=== PATIENT | female | born 1960 | race Caucasian/White ===

== ENCOUNTER 2022-07-08 08:47 | Outpatient (REF) | payer OTHER, SELFPAY ==
--- NOTE | ~2022-07-08 | XR_ITS ---
EXAMINATION: XR BILATERAL KNEE AP STANDING. LATERAL AND SUNRISE VIEWS OF THE RIGHT KNEE. CLINICAL INFORMATION: Pain in unspecified knee COMPARISON: None TECHNIQUE: AP bilateral standing view of both knees, lateral view of the right knee, and sunrise view of the right knee were obtained. FINDINGS: Right knee: Severe medial compartment joint space narrowing with a [id number]-[id number] appearance. There is sclerosis of the medial tibial plateau and medial marginal osteophytosis. Mild lateral compartment joint space narrowing with lateral tibial and femoral marginal osteophytes. Mild patellofemoral joint space narrowing with lateral and superior patellofemoral osteophytosis. Small suprapatellar joint effusion likely present. Left knee: Severe medial compartment joint space narrowing with a argl-[id number] appearance. Mild lateral compartment joint space narrowing. Medial and lateral marginal osteophytes are present. XR/XR knee standing BI IMPRESSION: Tricompartmental osteoarthritis of the right knee severe in the medial compartment. Severe medial compartment osteoarthritis of the left knee.
--- NOTE | ~2022-07-08 | XR_ITS ---
EXAMINATION: XR BILATERAL KNEE AP STANDING. LATERAL AND SUNRISE VIEWS OF THE RIGHT KNEE. CLINICAL INFORMATION: Pain in unspecified knee COMPARISON: None TECHNIQUE: AP bilateral standing view of both knees, lateral view of the right knee, and sunrise view of the right knee were obtained. FINDINGS: Right knee: Severe medial compartment joint space narrowing with a [id number] appearance. There is sclerosis of the medial tibial plateau and medial marginal osteophytosis. Mild lateral compartment joint space narrowing with lateral tibial and femoral marginal osteophytes. Mild patellofemoral joint space narrowing with lateral and superior patellofemoral osteophytosis. Small suprapatellar joint effusion likely present. Left knee: Severe medial compartment joint space narrowing with a rlxl-lg-[id number] appearance. Mild lateral compartment joint space narrowing. Medial and lateral marginal osteophytes are present. XR/XR knee RT 2V IMPRESSION: Tricompartmental osteoarthritis of the right knee severe in the medial compartment. Severe medial compartment osteoarthritis of the left knee.
== END 2022-07-08 08:48 | disposition home or self-care (01) ==
LOC: HO.HOSX 08:47
PROVIDERS: Visit Provider Orthopaedic Surgery
DX: M17.11 Unilateral primary osteoarthritis, right knee (principal); E66.01 Morbid (severe) obesity due to excess calories; Z68.42 Body mass index [BMI] 45.0-49.9, adult; Z71.3 Dietary counseling and surveillance
CPT/HCPCS: 73560; 73565; 99202

== ENCOUNTER → 2022-08-26 15:35 | Outpatient (BNVA) | payer OTHER, SELFPAY | PROVIDERS: PCP Internal Medicine; Visit Provider Internal Medicine | DX: M17.11 Unilateral primary osteoarthritis, right knee (principal) | CPT/HCPCS: 99202 ==

== ENCOUNTER → 2022-11-07 09:18 | Outpatient (BNVA) | payer OTHER, SELFPAY | PROVIDERS: PCP Internal Medicine; Visit Provider Orthopaedic Surgery | DX: Z13.89 Encounter for screening for other disorder (principal) ==

== ENCOUNTER 2023-09-01 14:37 | Outpatient (AMB) | payer OTHER, SELFPAY ==
--- NOTE | 2023-09-01 14:39 | A.OFFVIS_ITS ---
Intake Intake Visit Reasons: bilat knee pain-needs new braces Intake Note: Mikki is a 63 year old female who presents today for a follow up of her bilateral knee OA. Right > Left. Last visit TKA was discussed but she needed to reach 40 BMI. Patient presents today for bracing. Allergies acetaminophen [Vicodin] Allergy (Unknown, Verified 08/26/22 15:51) Unknown ciprofloxacin [Cipro HC] Allergy (Unknown, Verified 08/26/22 15:51) insomnia hydrocodone [Vicodin] Allergy (Unknown, Verified 08/26/22 15:51) Unknown Doxycycline Hyclate Allergy (Unknown, Uncoded 08/26/22 15:51) Unknown HPI bilat knee pain-needs new braces HPI Details Mikki is a 62 year old woman with bilateral knee OA, who presents with complaints of worsening knee pain. She has been seen at [facility] for multiple steroid injections and viscosupplementation, but has not received any injections here at [facility]. She has pain with daily activity, and says she has not been able to walk comfortably for the last ~11 years. She is able to walk down a hallway without pain, but not further. She takes Tramadol & diclofenac and is on pantoprazole due to stomach issues. She is unable to be active or participate in the activities she wants, and continues to walk using a cane. She says she performs exercises at home when in bed, every morning before she gets up. She has been wearing compressive knee sleeves, which she was given to her by an outside clinic, and she would like new sleeves today. She says these are helpful for her and if she is not wearing them then her knee pain & swelling is worse by the end of the day. We discussed weight management and her diet, she says she follows a gluten-free diet and the majority of her carbs come from vegetables, along with occasional rice. She says she has lost her weight through intermittent fasting primarily but she feels she has hit a wall with weight loss. She says she has lost ~30l bs since she was last seen. Her current BMI is 44.0. When she was last seen here TKA was discussed, however her BMI was ~48.0 and she needed to bring this <40.0 in order to proceed with surgery. 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 She has a history of Sepsis, kidney stones, and kidney cancer. She was hospitalized for this in the summer of 2020 and has not been able to work since due to her knee pain. She has a hx of partial nephrectomy. [facility] Surgical History (Updated 09/01/23 @ 15:06 by Davi Bales) H/O: hysterectomy History of carpal tunnel release History of spinal fusion Review of Systems Const All systems reviewed & are unremarkable except as noted in HPI and below Physical Exam Const General: no acute distress, alert and awake Orientation/consciousness: patient oriented x3 HEENT Head: Yes normocephalic and Yes atraumatic Eyes EOM: EOMs intact bilaterally Resp Effort & Inspection: normal respiratory effort and able to speak in complete sentences Cardio Jugular venous distension: no JVD Skin General skin exam: turgor normal Rashes: no rashes Neuro General: patient oriented x3 Extrem Other: Bilateral Knee: Medial compartment pain Severe bilateral varus alignment Varus thrust on gait Psych Appearance: grossly normal Affect: normal affect Attitude: cooperative Results Reviewed Results Reviewed: I personally reviewed relevant radiographs. Severe bilateral varus pattern knee OA Assessment & Plan Assessment & Plan (1) Osteoarthritis of right knee: Code(s): M17.11 - Unilateral primary osteoarthritis, right knee Plan: This is a 63 year old woman with severe bilateral knee OA. She has pain with daily activity and has been unable to ambulate comfortably for ~11 years. she ambulates with an assistive device, but cannot travel farther than down a hallway without pain. She has some relief from a compression sleeve. She has failed conservative treatment options, feels limited in her ADLs, and that her QOL is diminished. She wants to be more active again but is unable to. I think she would benefit from a TKA. Her current BMI is 44.0, down from 48.8. She will continue to work towards lowering her BMI before we can proceed with discussing surgical intervention. She will continue with weight management and be active as tolerated, I recommend she perform exercises in a pool to help support her. She was fitted for bilateral knee sleeves today, and her goal is to lose as much weight as possible in the next ~4 months. We will begin the pre operative clearance process. I think her age and weight are issues but she has good muscle strength and, ultimately, will benefit from arthroplasty. (2) Morbid obesity with BMI of 45.0-49.9, adult: Code(s): E66.01 - Morbid (severe) obesity due to excess calories; Z68.42 - Body mass index [BMI] 45.0-49.9, adult Plan: Current BMI is ~44.0. It is recommended her BMI is <=40.0 before proceeding with surgery. (3) Osteoarthritis of left knee: Code(s): M17.12 - Unilateral primary osteoarthritis, left knee (4) History of partial nephrectomy: Code(s): Z90.5 - Acquired absence of kidney Plan Scribed for Selvin Martinez MD by Davi Bales, medical technologist blood bank, on 09/01/23 at 2:50 PM, EST. Coding Level of Care Code Est Pt Level 4 (25769) Diagnoses Osteoarthritis of right knee M17.11 Morbid obesity with BMI of 45.0-49.9, adult E66.01; Z68.42 Osteoarthritis of left knee M17.12 History of partial nephrectomy Z90.5
== END 2023-09-01 15:47 | disposition home or self-care (01) ==
PROVIDERS: PCP Internal Medicine; Visit Provider Orthopaedic Surgery
DX: M17.0 Bilateral primary osteoarthritis of knee (principal); E66.01 Morbid (severe) obesity due to excess calories; Z68.42 Body mass index [BMI] 45.0-49.9, adult; Z90.5 Acquired absence of kidney
CPT/HCPCS: 99214

== ENCOUNTER → 2023-09-01 14:37 | Outpatient (BNVA) | payer OTHER, SELFPAY | PROVIDERS: PCP Internal Medicine; Visit Provider Orthopaedic Surgery | DX: M17.0 Bilateral primary osteoarthritis of knee (principal); E66.01 Morbid (severe) obesity due to excess calories; Z90.5 Acquired absence of kidney; Z68.42 Body mass index [BMI] 45.0-49.9, adult | CPT/HCPCS: 99212 ==

== ENCOUNTER 2024-01-15 13:22 | Outpatient (AMB) | payer OTHER, SELFPAY ==
--- NOTE | 2024-01-15 13:57 | A.OFFVIS_ITS ---
Intake Intake Visit Reasons: Pre op -LT TKA 01/21/24 NE Intake Note: Mikki is a 63 year old female who presents today for a pre op appointment for her left TKA 01/21/24 NE. Allergies morphine Allergy (Severe, Verified 01/15/24 13:58) Vomiting ciprofloxacin [Cipro HC] Adverse Reaction (Intermediate, Verified 01/15/24 13:58) insomnia HPI Pre op -LT TKA 01/21/24 NE HPI Details 63-year-old female who presents in the [facility] today for her preoperative history and physical exam prior to a left total knee arthroplasty to be performed on 01/21/[address] Selvin Martinez. Patient has an allergy history, as follows: -Morphine; vomiting -Ciprofloxacin; insomina Patient is currently taking, as follows: -Acetaminophen ER 1,300 mg PO Q8H PRN -Diclofenac sodium 75 mg PO TID -Estradiol 0.5 mg PO Bedtime -Fluoxetine 40 mg PO QAM -Pantoprazole 40 mg PO daily -Tramadol 100 mg PO TID -Triamterene-hydrochlorothiazid 37.5-25 mg PO Daily -Valsartan 80 mg PO daily Patient has a medical history, as follows: -Anemia -Urinary retention -History of nephrolithiasis -Chronic kidney disease, stage 3 -Hx of hydronephrosis -Hx of pyelonephritis -BORA on CPAP -Depression -Anxiety -PONV (postoperative nausea and vomiting ) -GERD (gastroesophageal reflux disease) -HTN (hypertension) -History of primary malignant neoplasm o f right kidney; partial nephrectomy -Renal calculus, left Patient has a surgical history, as follows: -Hx of eye surgery -History of esophagogastroduodenoscopy ( EGD) -Hx of colonoscopy -H/O ventral hernia repair; s/p partial nephrectomy 05/2023 -Hx of cystoscopy; sepsis, 3-4 surgeries , ureteral stent, left kidney, removal of stone 2020 -Hx of hand surgery; right hand, plates and screws 1998 -H/O: hysterectomy -History of carpal tunnel release; right -History of spinal fusion; x2 Cervical, last 2003 [facility] Medical History (Updated 01/14/24 @ 15:06 by Estela Babb RN) Anemia Urinary retention History of nephrolithiasis Chronic kidney disease, stage 3 Hx of hydronephrosis Hx of pyelonephritis Osteoarthritis BORA on CPAP Depression Anxiety PONV (postoperative nausea and vomiting) GERD (gastroesophageal reflux disease) HTN (hypertension) History of primary malignant neoplasm of right kidney (~11/2022) Renal calculus, left Surgical History (Updated 01/14/24 @ 15:08 by Estela Babb, RN) Hx of eye surgery History of esophagogastroduodenoscopy (EGD) Hx of colonoscopy H/O ventral hernia repair (~05/2023) Hx of cystoscopy (~2020) Hx of hand surgery H/O: hysterectomy (~1998) History of carpal tunnel release History of spinal fusion Social History Household Members: None Housing: House Are you a primary healthcare sales representative to a significant other at home: No Do you presently have visiting nurse or other home services: No e-Cigarette/Vaping Use: Never Used Review of Systems Const All systems reviewed & are unremarkable except as noted in HPI and below Physical Exam Const General: no acute distress, alert and awake Orientation/consciousness: patient oriented x3 HEENT Head: Yes normocephalic and Yes atraumatic Eyes EOM: EOMs intact bilaterally Resp Effort & Inspection: normal respiratory effort and able to speak in complete sentences Cardio Jugular venous distension: no JVD Skin General skin exam: turgor normal Rashes: no rashes Neuro General: patient oriented x3 Extrem Other: Left Knee: Medial compartment pain Severe bilateral varus alignment Varus thrust on gait Psych Appearance: grossly normal Affect: normal affect Attitude: cooperative Assessment & Plan Assessment & Plan (1) Osteoarthritis of left knee: Code(s): M17.12 - Unilateral primary osteoarthritis, left knee (2) Morbid obesity with BMI of 45.0-49.9, adult: Code(s): E66.01 - Morbid (severe) obesity due to excess calories; Z68.42 - Body mass index [BMI] 45.0-49.9, adult (3) History of partial nephrectomy: Code(s): Z90.5 - Acquired absence of kidney Plan Ms. Rutledge is a 63-year-old female who presents in the office today for her preoperative history and physical exam prior to a left total knee arthroplasty to be performed on 01/21/[address] Selvin Martinez. Patient has an allergy history, as follows: -Morphine; vomiting -Ciprofloxacin; insomina Patient is currently taking, as follows: -Acetaminophen ER 1,300 mg PO Q8H PRN -Diclofenac sodium 75 mg PO TID -Estradiol 0.5 mg PO Bedtime -Fluoxetine 40 mg PO QAM -Pantoprazole 40 mg PO daily -Tramadol 100 mg PO TID -Triamterene-hydrochlorothiazid 37.5-25 mg PO Daily -Valsartan 80 mg PO daily Patient has a medical history, as follows: -Anemia -Urinary retention -History of nephrolithiasis -Chronic kidney disease, stage 3 -Hx of hydronephrosis -Hx of pyelonephritis -BORA on CPAP -Depression -Anxiety -PONV (postoperative nausea and vomiting) -GERD (gastroesophageal reflux disease) -HTN (hypertension) -History of primary malignant neoplasm of right kidney; partial nephrectomy -Renal calculus, left Patient has a surgical history, as follows: -Hx of eye surgery -History of esophagogastroduodenoscopy (EGD) -Hx of colonoscopy -H/O ventral hernia repair; s/p partial nephrectomy 05/2023 -Hx of cystoscopy; sepsis, 3-4 surgeries, ureteral stent, left kidney, removal of stone 2020 -Hx of hand surgery; right hand, plates and screws 1998 -H/O: hysterectomy -History of carpal tunnel release; right -History of spinal fusion; x2 Cervical, last 2003 I discussed in detail the procedure and what to expect pre and post operatively. We discussed the risks, benefits and alternatives to the surgery as well as the rehabilitation course. The risks; which include, but are not limited to infection, bleeding, nerve injury, ongoing pain, swelling, and stiffness, perioperative risk of injury to bones and soft tissues, and blood clots. I have answered all questions and with their understanding they have consented to move forward with a left total knee arthroplasty to be performed on 01/21/[address] Selvin Martinez. Follow up will be at the post operative appointment on 02/05/2024 at 3:00 pm, or sooner if needed. X-rays were obtained for surgical planning. Of note: Patient recently had a tattoo on her right upper extremity on the proximal to distal radius. Dr. Martinez was available to discuss this with the patient and myself and stated he felt comfortable still proceeding as scheduled with the left total knee arthroplasty. Patient does have a history of renal cancer and therefore was followed by Dr. Bernabe. At the time of treatment her right kidney was removed. Patient will be placed on Lovenox post operatively for DVT prophylaxis. Patient would like to attend physical therapy closer to her home in [place]. She will research which facility she would like to attend. Patient is interested in obtaining an ice machine post operatively. Please call daughter Lucrecia post op [phone] Orders: Orders XR knee standing BI Today M25.569 - Pain in unspecified knee XR knee LT 2V Today M25.569 - Pain in unspecified knee Patient Instructions: Scribed by Cass Null, medical researcher, for Beth Shepard PA-C on 01/15/2024 at 1:26 pm, EST. Coding Level of Care Code Global (49154) Diagnoses Osteoarthritis of left knee M17.12 Morbid obesity with BMI of 45.0-49.9, adult E66.01; Z68.42 History of partial nephrectomy Z90.5
== END 2024-01-15 14:15 | disposition home or self-care (01) ==
PROVIDERS: PCP Internal Medicine; Visit Provider Physician Assistant
DX: M17.12 Unilateral primary osteoarthritis, left knee (principal); E66.01 Morbid (severe) obesity due to excess calories; Z68.42 Body mass index [BMI] 45.0-49.9, adult; Z90.5 Acquired absence of kidney
CPT/HCPCS: 99024

== ENCOUNTER 2024-01-15 14:30 | Outpatient (REF) | payer OTHER, SELFPAY ==
--- NOTE | ~2024-01-15 | XR_ITS ---
EXAMINATION: XR BILATERAL KNEE AP STANDING XR KNEE, LEFT CLINICAL INFORMATION: Pain in unspecified knee. COMPARISON: July 08, 2022. TECHNIQUE: AP bilateral standing view of both knees, lateral view of the right knee, and sunrise view of the right knee were obtained. FINDINGS: LEFT KNEE: No significant joint effusion. Patella is superiorly displaced relative to the distal femur with posterior patellar osteophytes and cartilage space loss. Severe medial joint space narrowing with medial marginal osteophytes and progression of periarticular lucencies and cystic changes. RIGHT KNEE: Advanced tricompartmental degenerative changes most notable in the medial compartment with loss of the joint space and hypertrophic change. Fragmented ossicles/calcifications along the medial tibial plateau of indeterminate age, not previously identified, possibly representing interval trauma of uncertain age. Lateral marginal and posterior patellar osteophytes with compartmental narrowing and degenerative changes. Genu varus. XR/XR knee LT 2V IMPRESSION: 1. Severe degenerative changes bilateral knees. 2. Fragmented ossicles/calcifications along the medial tibial plateau of indeterminate age, not previously identified, possibly representing interval trauma of uncertain age. Correlation with clinical exam recommended to determine further management including possible additional imaging with MRI. This study was presented January 19, 2024 for interpretation. PSA staff will provide results to referring provider at this time.
--- NOTE | ~2024-01-15 | XR_ITS ---
EXAMINATION: XR BILATERAL KNEE AP STANDING XR KNEE, LEFT CLINICAL INFORMATION: Pain in unspecified knee. COMPARISON: July 08, 2022. TECHNIQUE: AP bilateral standing view of both knees, lateral view of the right knee, and sunrise view of the right knee were obtained. FINDINGS: LEFT KNEE: No significant joint effusion. Patella is superiorly displaced relative to the distal femur with posterior patellar osteophytes and cartilage space loss. Severe medial joint space narrowing with medial marginal osteophytes and progression of periarticular lucencies and cystic changes. RIGHT KNEE: Advanced tricompartmental degenerative changes most notable in the medial compartment with loss of the joint space and hypertrophic change. Fragmented ossicles/calcifications along the medial tibial plateau of indeterminate age, not previously identified, possibly representing interval trauma of uncertain age. Lateral marginal and posterior patellar osteophytes with compartmental narrowing and degenerative changes. Genu varus. XR/XR knee standing BI IMPRESSION: 1. Severe degenerative changes bilateral knees. 2. Fragmented ossicles/calcifications along the medial tibial plateau of indeterminate age, not previously identified, possibly representing interval trauma of uncertain age. Correlation with clinical exam recommended to determine further management including possible additional imaging with MRI. This study was presented January 19, 2024 for interpretation. PSA staff will provide results to referring provider at this time.
== END 2024-01-15 14:31 | disposition home or self-care (01) ==
LOC: HO.HOSX 14:30
PROVIDERS: Visit Provider Physician Assistant
DX: M17.12 Unilateral primary osteoarthritis, left knee (principal); E66.01 Morbid (severe) obesity due to excess calories; Z68.42 Body mass index [BMI] 45.0-49.9, adult; Z90.5 Acquired absence of kidney
CPT/HCPCS: 73560; 73565; 99212

== ENCOUNTER 2024-01-21 06:44 | Inpatient (IN) | payer OTHER, SELFPAY ==
[2024-01-14 12:42] VITALS: BP 130/70; PULSE 82; RESP 16; O2SAT 98; BMI 45.0
--- NOTE | 2024-01-14 12:58 | P.CONAN_ITS ---
Documented by User: Zaria Le NP 01/20/24 11:04 HPI - Anesthesia Eval Consult details Narrative: 63yo F for Left Knee Replacement Total Medically cleared Urology cleared. (s/p partial R nephrectomy 11/2022 d/t RCC) PONV. Has not tried scop patch BORA. CPAP QHS. GERD. Mostly covered by ppi PMFSH Active Problems Active Problems: All Active Problems (Updated 01/14/24 @ 12:36 by Estela Babb, RN) History of partial nephrectomy (Acute) Osteoarthritis of left knee (Acute) Morbid obesity with BMI of 45.0-49.9, adult (Acute) Osteoarthritis of right knee (Acute) Past Medical History Medical History (Updated 01/14/24 @ 15:06 by Estela Babb, RN) Anemia Urinary retention History of nephrolithiasis Chronic kidney disease, stage 3 Hx of hydronephrosis Hx of pyelonephritis Osteoarthritis BORA on CPAP Depression Anxiety PONV (postoperative nausea and vomiting) GERD (gastroesophageal reflux disease) HTN (hypertension) History of primary malignant neoplasm of right kidney (~11/2022) Renal calculus, left Family History Family history of problems with anesthesia: No Surgical History Surgical History (Updated 01/20/24 @ 11:02 by Jania Quezada RN) History of nephrectomy, right Hx of eye surgery History of esophagogastroduodenoscopy (EGD) Hx of colonoscopy H/O ventral hernia repair (~05/2023) Hx of cystoscopy (~2020) Hx of hand surgery H/O: hysterectomy (~1998) History of carpal tunnel release History of spinal fusion History of Problems with Anesthesia: Yes (PONV) Social History Social History Household Members: None Housing: House Are you a primary healthcare representative to a significant other at home: No Do you presently have visiting nurse or other home services: No e-Cigarette/Vaping Use: Never Used Use of substances other than those prescribed or required for medical reasons: No Have you been hit, kicked, punched, or otherwise hurt by someone within the past year? If so, by whom?: No Are you DNR?: No Advance Directives: No Advance Directives Information Provided: Yes Advance Directives on File: No Recently lost weight without trying: No Nutrition Risks: No Nutritional Risk Meds Allergies Allergy/AdvReac Type Severity Reaction Status Date / Time morphine Allergy Severe Vomiting Verified 01/15/24 13:58 ciprofloxacin [Cipro HC] AdvReac Intermediate insomnia Verified 01/15/24 13:58 Home Medications Medication Instructions Recorded Confirmed Last Taken Type diclofenac sodium 75 mg 75 mg PO TID 07/08/22 01/14/24 01/20/24 History tablet,delayed release estradiol 0.5 mg tablet 0.5 mg PO BEDTIME 07/08/22 01/14/24 01/20/24 History pantoprazole 40 mg tablet,delayed 40 mg PO DAILY 07/08/22 01/14/24 01/21/24 05:00 History release tramadol 50 mg tablet 100 mg PO TID 07/08/22 01/14/24 01/21/24 05:00 History triamterene 37.5 1 tab PO DAILY 07/08/22 01/14/24 01/20/24 History mg-hydrochlorothiazide 25 mg tablet fluoxetine 20 mg capsule 40 mg PO QAM 09/01/23 01/14/24 01/21/24 05:00 History acetaminophen 650 mg 1,300 mg PO Q8H PRN pain 01/14/24 01/14/24 01/20/24 History tablet,extended release valsartan 80 mg tablet 80 mg PO DAILY 01/14/24 01/14/24 01/20/24 History Exam Height,Weight and Vital Signs: Height 5 ft Weight 104.6 kg Last Vital Signs Pulse 82 01/14/24 12:42 Resp 16 01/14/24 12:42 BP 130/70 01/14/24 12:42 Pulse Ox 98 01/14/24 12:42 O2 Del Method Room Air 01/14/24 12:42 Pertinent Lab Results Pertinent Lab Results: CBC and BMP 12/2023 from outside facility WNL except H&H low at 9.7 & 32.2 Narrative Narrative: EKG 12/2023 SR @ 87 RBBB LVH Inf infarct, old Airway Mallampati Class: III TM Dist: >3cm Neck ROM: Full (s/p Cspine fusion with full ROM) Loose/Missing/Broken Teeth: Yes (Molar pulled) Heart: RRR Lungs: CTAB Assessment and Plan Assessment Anesthesia Assessment: Anesthesia Plan Discussed and PAT Visit Final Anesthetic Review Family History of Problems with Anesthesia: No History of Problems with Anesthesia: Yes (PONV) Documented by User: Estela Page MD 01/21/24 07:57 PMFSH Past Medical History Medical History (Updated 01/14/24 @ 15:06 by Estela Babb, JOE) Anemia Urinary retention History of nephrolithiasis Chronic kidney disease, stage 3 Hx of hydronephrosis Hx of pyelonephritis Osteoarthritis BORA on CPAP Depression Anxiety PONV (postoperative nausea and vomiting) GERD (gastroesophageal reflux disease) HTN (hypertension) History of primary malignant neoplasm of right kidney (~11/2022) Renal calculus, left Surgical History Surgical History (Updated 01/20/24 @ 11:02 by Jania Quezada RN) History of nephrectomy, right Hx of eye surgery History of esophagogastroduodenoscopy (EGD) Hx of colonoscopy H/O ventral hernia repair (~05/2023) Hx of cystoscopy (~2020) Hx of hand surgery H/O: hysterectomy (~1998) History of carpal tunnel release History of spinal fusion Social History Social History Household Members: None Housing: House Are you a primary healthcare representative to a significant other at home: No Do you presently have visiting nurse or other home services: No e-Cigarette/Vaping Use: Never Used Use of substances other than those prescribed or required for medical reasons: No Have you been hit, kicked, punched, or otherwise hurt by someone within the past year? If so, by whom?: No Are you DNR?: No Advance Directives: No Advance Directives Information Provided: Yes Advance Directives on File: No Recently lost weight without trying: No Nutrition Risks: No Nutritional Risk Meds Allergies Allergy/AdvReac Type Severity Reaction Status Date / Time morphine Allergy Severe Vomiting Verified 01/15/24 13:58 ciprofloxacin [Cipro HC] AdvReac Intermediate insomnia Verified 01/15/24 13:58 Home Medications Medication Instructions Recorded Confirmed Last Taken Type diclofenac sodium 75 mg 75 mg PO TID 07/08/22 01/14/24 01/20/24 History tablet,delayed release estradiol 0.5 mg tablet 0.5 mg PO BEDTIME 07/08/22 01/14/24 01/20/24 History pantoprazole 40 mg tablet,delayed 40 mg PO DAILY 07/08/22 01/14/24 01/21/24 05:00 History release tramadol 50 mg tablet 100 mg PO TID 07/08/22 01/14/24 01/21/24 05:00 History triamterene 37.5 1 tab PO DAILY 07/08/22 01/14/24 01/20/24 History mg-hydrochlorothiazide 25 mg tablet fluoxetine 20 mg capsule 40 mg PO QAM 09/01/23 01/14/24 01/21/24 05:00 History acetaminophen 650 mg 1,300 mg PO Q8H PRN pain 01/14/24 01/14/24 01/20/24 History tablet,extended release valsartan 80 mg tablet 80 mg PO DAILY 01/14/24 01/14/24 01/20/24 History Assessment and Plan Assessment Anesthesia Assessment: Chart Reviewed Final Anesthetic Review NPO: Yes ASA Class: III Final Preanesthetic Review: No Changes in Pt Med Stat, Meds/Allgs Chart Reviewed, Consent Obtained/Reviewed and Anes Risks/Benef Reviewed Patient Risk: Intermediate Procedure Risk: Intermediate Anesthetic Plan Anesthetic Plan: Spinal and Regional Block Disposition: Standard PACU
[2024-01-14 16:17] LABS: MRSA Nasal PCR NEGATIVE (Negative); SA Nasal PCR NEGATIVE (Negative)
[2024-01-21] VITALS (9 sets, daily range): BP systolic 101–160; BP diastolic 53–86; PULSE 70–86; RESP 16–20; TEMP 36.1–36.9; O2SAT 93–99; BMI 48.6
--- NOTE | ~2024-01-21 | XR_ITS ---
EXAMINATION: XR KNEE, LEFT CLINICAL INFORMATION: Left TKA COMPARISON: None available. TECHNIQUE: Two views of the left knee. FINDINGS: There is a total left knee arthroplasty with prosthetic components in satisfactory alignment. There are limited postop changes of left knee with surgical elke along the anterior skin. XR/XR knee LT 2V IMPRESSION: Total left knee arthroplasty with immediate postoperative changes noted. The prosthetic components are in satisfactory alignment.
[2024-01-21] MEDS: Scopolamine 1.5 MG PATCH.TD.3 TRANSDERMA (07:07)
--- NOTE | 2024-01-21 07:35 | MHC.SHP ---
Pre-Procedural Eval Section A - 24 Hr Update-Section A only Date of Service: 01/21/24 The patient is an INPATIENT: No Changes since office visit: No Cold of Flu in the past 2 weeks, No New Medical Problems, No Changes in Medication and No Patient answered all questions The patient has been examined within 24 hours of the surgical procedure. The History & Physical has been completed within 30 days and I have reviewed it.: Yes Section B - Complete if H&P > 30 days Chief Complaint: Unilateral primary osteoarthritis, right knee Allergies: Allergies Allergy/AdvReac Type Severity Reaction Status Date / Time morphine Allergy Severe Vomiting Verified 01/15/24 13:58 ciprofloxacin [Cipro HC] AdvReac Intermediate insomnia Verified 01/15/24 13:58 Plan I have reviewed the history and physical and performed a pertinent physical examination on my patient. No changes have occurred unless specified. Time Spent With Patient Time: Total time managing care of this patient today ____ minutes.
--- NOTE | 2024-01-21 07:58 | PC.NURSE ---
iv inserted to right hand. large bruising noted.patient states she bleeds easily but no known bleeding disorder.
[2024-01-21] MEDS: Lactated Ringers 1,000 ML 100 ML IVCONT ×2 (08:01→11:09)
--- NOTE | 2024-01-21 08:02 | PC.NURSE ---
ice pack applied to right hand
--- NOTE | 2024-01-21 10:06 | P.BOP_ITS ---
Brief Operative Note Date of Service: 01/21/24 Pre-op diagnosis: left knee OA Post-op diagnosis: same Procedure: Left TKA Implants: [employer] Triathlon posterior stabilized cemented 01/10/13 Surgeon: Selvin Martinez MD Anesthesia: regional and spinal Was an Rfid Engineer used for this Procedure?: Yes Rfid Engineer: Jake Patel Estimated blood loss (mL): 20 Tourniquet time (min): 61 IV fluids (mL): 1,000 Pathology: other Condition: stable Disposition: PACU
[2024-01-21] MEDS: oxyCODONE HCl ER 10 MG TAB.ER.12H PO ×2 (11:13→19:59)
--- NOTE | 2024-01-21 11:24 | PHA.MEDREC ---
Pharmacy Consult ? Medication Reconciliation Pharmacy has completed the medication reconciliation.med rec done by nursing, reviewed by pharmacy and no concerns.
[2024-01-21] MEDS: Acetaminophen 325 MG TABLET 650 MG PO ×2 (13:47→22:20)
[2024-01-21] MEDS: oxyCODONE HCl Immed Release 5 MG TABLET PO ×3 (13:47→22:20)
[2024-01-21] MEDS: ceFAZolin Sodium/Dextrose,Iso 2 GM/50 ML PIGGYBACK IV (13:47)
--- NOTE | 2024-01-21 14:52 | P.CONHOSP_ITS ---
History of Present Illness Data of Consult Service Date: 01/21/24 Primary Care Provider: Chantal Magallanes MD HPI Reason for consult: med management 63 year old female with chronic medical issues including HTN, CKD3, GERD and OA. She underwent Left TKA today and is doing well post op having already getting out of bed and taking some steps. She has some pain the knee but has no acute medical issues at this time and her vital sings are within normal Review of Systems Review of Systems: Gen: no fever Resp: no sob, no cough CV: no chest, no DEAN, no leg edema GI: No n/v, no abd pain Neuro: No confusion MSK: left knee pain Yes all other systems are reviewed and are negative [facility] Medical History (Updated 01/21/24 @ 15:16 by Robb Velazquez MD) Anemia Urinary retention History of nephrolithiasis Chronic kidney disease, stage 3 Hx of hydronephrosis Hx of pyelonephritis Osteoarthritis BORA on CPAP Depression Anxiety PONV (postoperative nausea and vomiting) GERD (gastroesophageal reflux disease) HTN (hypertension) History of primary malignant neoplasm of right kidney (~11/2022) Renal calculus, left Surgical History History of nephrectomy, right Hx of eye surgery History of esophagogastroduodenoscopy (EGD) Hx of colonoscopy H/O ventral hernia repair (~05/2023) Hx of cystoscopy (~2020) Hx of hand surgery H/O: hysterectomy (~1998) History of carpal tunnel release History of spinal fusion Social History Household Members: None Housing: House Are you a primary caregivers homecare to a significant other at home: No Do you presently have visiting nurse or other home services: No Patient Tobacco Use Status: Former Tobacco user Quit Date: 2013 Tobacco use type: Cigarette Years Smoked: 30 Smoked in Last 30 Days: No e-Cigarette/Vaping Use: Never Used Patient Interested in Nicotine Replacement: No Patient Given Instructions on How to Stop Smoking: No Use of substances other than those prescribed or required for medical reasons: No Currently Displaying Signs/Symptoms of Drug Intoxication Withdrawal: No Any prior treatment program specific to substance use: No Have you been hit, kicked, punched, or otherwise hurt by someone within the past year? If so, by whom?: No Do you feel safe in your current relationship?: No Current Relationship Are you made to feel afraid or neglected: Yes Are you DNR?: No Advance Directives: No Advance Directives Information Provided: Yes Advance Directives on File: No Do you have thoughts of harming others: None Do you have a plan to hurt others: No Plan Recently lost weight without trying: No Eating poorly because of decreased appetite: No Nutrition Risks: No Nutritional Risk Patient : No : No Poor oral hygiene: No Meds Allergies Allergy/AdvReac Type Severity Reaction Status Date / Time morphine Allergy Severe Vomiting Verified 01/15/24 13:58 ciprofloxacin [Cipro HC] AdvReac Intermediate insomnia Verified 01/15/24 13:58 Active Medications: Current Medications Acetaminophen (Acetaminophen 325 Mg Tablet) 650 mg PO Q6H PRN PRN Reason: Pain, Mild (Pain Scale 1-3) Last Admin: 01/21/24 13:47 Dose: 650 mg Celecoxib (Celecoxib 200 Mg Capsule) 200 mg PO BID [facility] Docusate Sodium (Docusate Sodium 100 Mg Capsule) 100 mg PO BID [facility] Enoxaparin Sodium (Enoxaparin Sodium 40 Mg/0.4 Ml Syringe) 40 mg SUBCUT Q24H [facility] Estradiol (Estradiol 0.5 Mg Tablet) 0.5 mg PO BEDTIME [facility] Fluoxetine HCl (Fluoxetine Hcl 20 Mg Capsule) 40 mg PO DAILY [facility] Last Admin: 01/21/24 11:42 Dose: Not Given Hydromorphone HCl (Hydromorphone Hcl 0.5 Mg/0.5 Ml Syringe) 0.25 mg IVPUSH Q4H PRN; Protocol PRN Reason: Pain, Severe (Pain Scale 7-10) Lactated Ringer's (Lr) 1,000 mls @ 100 mls/hr IVCONT .Q10H [facility] Stop: 01/22/24 10:21 Last Admin: 01/21/24 11:09 Dose: 100 mls/hr Cefazolin Sodium/Dextrose (Ancef) 2 gm in 50 mls @ 100 mls/hr IV POSTOP ONE Stop: 01/21/24 15:29 Last Infusion: 01/21/24 14:23 Dose: Infused Omeprazole (Omeprazole 20 Mg Capsule.Dr) 20 mg PO DAILY@0630 [facility] Ondansetron HCl (Ondansetron Hcl 4 Mg/2 Ml Vial) 4 mg IVPUSH Q8H PRN PRN Reason: Nausea and Vomiting Oxycodone HCl (Oxycodone Hcl Immed Release 5 Mg Tablet) 5 mg PO Q4H PRN PRN Reason: Pain, Moderate(Pain Scale 4-6) Last Admin: 01/21/24 13:47 Dose: 5 mg Oxycodone HCl (Oxycodone Hcl Er 10 Mg Tab.Er.12h) 10 mg PO BID [facility] Last Admin: 01/21/24 11:13 Dose: 10 mg Sodium Chloride (0.9 % Sodium Chloride Flush 3 Ml Syringe) 3 ml IVFLUSH QSHIFT [facility] Home Medications Medication Instructions Recorded Confirmed Last Taken Type diclofenac sodium 75 mg 75 mg PO TID 07/08/22 01/14/24 01/20/24 History tablet,delayed release estradiol 0.5 mg tablet 0.5 mg PO BEDTIME 07/08/22 01/14/24 01/20/24 History pantoprazole 40 mg tablet,delayed 40 mg PO DAILY 07/08/22 01/14/24 01/21/24 05:00 History release tramadol 50 mg tablet 100 mg PO TID 07/08/22 01/14/24 01/21/24 05:00 History triamterene 37.5 1 tab PO DAILY 07/08/22 01/14/24 01/20/24 History mg-hydrochlorothiazide 25 mg tablet fluoxetine 20 mg capsule 40 mg PO QAM 09/01/23 01/14/24 01/21/24 05:00 History acetaminophen 650 mg 1,300 mg PO Q8H PRN pain 01/14/24 01/14/24 01/20/24 History tablet,extended release valsartan 80 mg tablet 80 mg PO DAILY 01/14/24 01/14/24 01/20/24 History Physical Exam Vital Signs and Narrative: Vital Signs: Last Vital Signs Temp 97.8 F 01/21/24 11:17 Pulse 70 01/21/24 13:55 Resp 18 01/21/24 11:17 BP 126/69 01/21/24 13:55 Pulse Ox 96 01/21/24 13:55 O2 Del Method Room Air 01/21/24 11:17 BMI result Body Mass Index 48.6 Constitutional: Alert, in no distress, overweight. Mental Status: Oriented to person, place and time. Eyes: Pupils are equal, round and reactive to light. Ear, Nose and Throat: Oropharynx clear, mucous membranes moist. Respiratory: Clear to auscultation. No wheezing, rales or rhonchi. Cardiovascular: S1 S2 regular. No murmurs, rubs or gallops. Gastrointestinal: Abdomen soft, non-tender, non-distended. Normal bowel sounds.? Neurologic: Cranial nerves II-XII grossly intact. No focal neurological deficits. Moves all extremities spontaneously.? Skin: No rashes or lesions.?knee is wrapped and no ozzing of bleed Musculoskeletal: No cyanosis or clubbing. Psychiatric: Normal mood and affect? Results Imaging Radiologist's Impressions: Impressions Knee X-Ray 01/21/24 10:52 IMPRESSION: Total left knee arthroplasty with immediate postoperative changes noted. The prosthetic components are in satisfactory alignment. Assessment and Plan (1) HTN (hypertension): Status: Acute (2) Osteoarthritis of left knee: Status: Acute (3) Morbid obesity with BMI of 45.0-49.9, adult: Status: Acute Plan 63 year old female with chronic medical issues including HTN, CKD3, GERD and OA. She underwent Left TKA today and is doing well post op having already getting out of bed and taking some steps. s/p L TKA--management per surgery HTN--resume home BP meds Obesity --weight loss advised GERD--PPI DVT P: lovenox
[2024-01-21] MEDS: ondansetron HCL 4 MG/2 ML VIAL IVPUSH (15:23)
[2024-01-21] MEDS: HYDROmorphone HCl 0.5 MG/0.5 ML SYRINGE 0.25 MG IVPUSH ×2 (15:33→20:00)
[2024-01-21] MEDS: estradioL 0.5 MG TABLET PO (19:59)
[2024-01-21] MEDS: Celecoxib 200 MG CAPSULE PO (19:59)
[2024-01-21] MEDS: Docusate Sodium 100 MG CAPSULE PO (19:59)
[2024-01-22] VITALS (7 sets, daily range): BP systolic 139–148; BP diastolic 64–70; PULSE 65–85; RESP 17–18; TEMP 36–36.3; O2SAT 95–97
[2024-01-22] MEDS: HYDROmorphone HCl 0.5 MG/0.5 ML SYRINGE 0.25 MG IVPUSH ×5 (00:19→20:09)
[2024-01-22] MEDS: oxyCODONE HCl Immed Release 5 MG TABLET PO ×4 (02:58→18:23)
[2024-01-22] MEDS: Omeprazole 20 MG CAPSULE.DR PO (04:35)
[2024-01-22 06:56] LABS: MANUAL DIFF FLAG NO
[2024-01-22 07:18] LABS: Anion Gap 13 (12-20); Blood Urea Nitrogen 11 mg/dL (9-16); Calcium 9.7 mg/dL (8.4-10.2); Carbon Dioxide 28 mmol/L (22-29); Chloride 103 mmol/L (96-108); Creatinine Clr Calc Pharmacy 105.8; Estimated Glomerular Filt Rate > 60; Glucose Fasting 108 mg/dL (60-99); Potassium 3.5 mmol/L (3.3-5.1); Sodium 140 mmol/L (135-145)
[2024-01-22 07:21] LABS: Basophils Percent Auto 0.3 % (0-2); Hematocrit 29.7 % (37.0-47.0); Hemoglobin 9.4 g/dl (12.0-16.0); Imm Gran Abs Auto 0.04 X10*3/uL (0.00-0.03); Imm Gran Pct Auto 0.4 % (0.0-0.4); Lymphocytes Absolute Auto 2.6 X10*3/uL (1.2-4.9); Lymphocytes Percent Auto 23.5 % (20-40); Mean Corpuscular HGB Conc 31.6 g/dl (31.0-35.0); Mean Platelet Volume 11.7 fL (9.4-12.3); Monocytes Absolute Auto 1.4 X10*3/uL (0.1-1.2); Neutrophils Absolute Auto 7.2 x10*3/uL (2.0-8.3); Neutrophils Percent Auto 63.8 % (45-73); Platelet Count 311 X10*3/uL (160-400); Red Blood Count 3.62 X10*6/uL (4.20-5.50); Red Cell Distribution Width 14.1 % (11.0-16.0); White Blood Count 11.3 X10*3/uL (4.8-10.8)
[2024-01-22] MEDS: ondansetron HCL 4 MG/2 ML VIAL IVPUSH ×2 (07:34→18:30)
[2024-01-22] MEDS: 0.9 % Sodium Chloride Flush 3 ML SYRINGE IVFLUSH ×3 (07:34→20:11)
--- NOTE | 2024-01-22 08:03 | HO.PM.IMPN ---
Subjective Subjective Date of Service: 01/22/24 Interval History: f/u on med management post left TKA, has pain Physical Exam Vital Signs: Vital Signs: Last Vital Signs Temp 96.8 F 01/22/24 07:25 Pulse 65 01/22/24 07:25 Resp 18 01/22/24 07:25 BP 142/64 H 01/22/24 07:25 Pulse Ox 97 01/22/24 07:25 O2 Del Method Room Air 01/22/24 07:25 BMI result Body Mass Index 48.6 Const: Other: General: AO X 3, no acute distress Resp: CTA bilateral CVS: S1,S2,RRR GI: +BS, NT, no distention Skin: No rash, no oozing from dressing Neuro: motor grossly intact Psych: appropriate affect Objective Data Active Medications Acetaminophen (Acetaminophen 325 Mg Tablet) 650 mg PO Q6H PRN PRN Reason: Pain, Mild (Pain Scale 1-3) Last Admin: 01/21/24 22:20 Dose: 650 mg Documented By: JANINE Celecoxib (Celecoxib 200 Mg Capsule) 200 mg PO BID [facility] Last Admin: 01/21/24 19:59 Dose: 200 mg Documented By: JANINE Docusate Sodium (Docusate Sodium 100 Mg Capsule) 100 mg PO BID [facility] Last Admin: 01/21/24 19:59 Dose: 100 mg Documented By: JANINE Enoxaparin Sodium (Enoxaparin Sodium 40 Mg/0.4 Ml Syringe) 40 mg SUBCUT Q24H [facility] Estradiol (Estradiol 0.5 Mg Tablet) 0.5 mg PO BEDTIME [facility] Last Admin: 01/21/24 19:59 Dose: 0.5 mg Documented By: JANINE Fluoxetine HCl (Fluoxetine Hcl 20 Mg Capsule) 40 mg PO DAILY [facility] Last Admin: 01/21/24 11:42 Dose: Not Given Documented By: JUANJO Non-Admin Reason: taken at home Hydromorphone HCl (Hydromorphone Hcl 0.5 Mg/0.5 Ml Syringe) 0.25 mg IVPUSH Q4H PRN; Protocol PRN Reason: Pain, Severe (Pain Scale 7-10) Last Admin: 01/22/24 04:28 Dose: 0.25 mg Documented By: JANINE Omeprazole (Omeprazole 20 Mg Capsule.Dr) 20 mg PO DAILY@0630 [facility] Last Admin: 01/22/24 04:35 Dose: 20 mg Documented By: JANINE Ondansetron HCl (Ondansetron Hcl 4 Mg/2 Ml Vial) 4 mg IVPUSH Q8H PRN PRN Reason: Nausea and Vomiting Last Admin: 01/22/24 07:34 Dose: 4 mg Documented By: SHARA Oxycodone HCl (Oxycodone Hcl Immed Release 5 Mg Tablet) 5 mg PO Q4H PRN PRN Reason: Pain, Moderate(Pain Scale 4-6) Last Admin: 01/22/24 06:34 Dose: 5 mg Documented By: JANINE Oxycodone HCl (Oxycodone Hcl Er 10 Mg Tab.Er.12h) 10 mg PO BID [facility] Last Admin: 01/21/24 19:59 Dose: 10 mg Documented By: JANINE Sodium Chloride (0.9 % Sodium Chloride Flush 3 Ml Syringe) 3 ml IVFLUSH QSHIFT [facility] Last Admin: 01/22/24 07:34 Dose: 3 ml Documented By: SHARA Valsartan (Valsartan 80 Mg Tablet) 80 mg PO DAILY [facility]; Protocol Labs 01/22/24 05:41 01/22/24 05:41 Labs: Laboratory Results - last 24 hr 01/22/24 05:41 MCV 82.0 MCH 26.0 L MCHC 31.6 RDW 14.1 Plt Count 311 MPV 11.7 Immature Gran % (Auto) 0.4 Neut % (Auto) 63.8 Lymph % (Auto) 23.5 [place] % (Auto) 12.0 H Eos % (Auto) 0.0 Baso % (Auto) 0.3 Lymph # (Auto) 2.6 [place] # (Auto) 1.4 H Eos # (Auto) 0.0 Baso # (Auto) 0.0 Abs Immat Gran (auto) 0.04 H Absolute Neuts (auto) 7.2 Absolute Nucleated RBC 0.000 Nucleated RBC % (auto) 0.0 Anion Gap 13 Estim Creat Clear Calc 105.8 Estimated GFR > 60 Fasting Glucose 108 H Calcium 9.7 Assessment and Plan (1) HTN (hypertension): Status: Acute (2) History of partial nephrectomy: Status: Acute (3) Osteoarthritis of left knee: Status: Acute (4) Morbid obesity with BMI of 45.0-49.9, adult: Status: Acute Plan 63 year old female with chronic medical issues including HTN, h/o nephrectom,CKD, GERD and OA. She underwent Left TKA today and is doing well post op having already getting out of bed and taking some steps. s/p L TKA 01/20--management per surgery HTN--resume home BP meds (Valsartan) Obesity --weight loss advised GERD--PPI Mood desorder--Fluoxetine DVT P: lovenox med issues stable, no acute issues and signing of Quality Stroke Does the patient have a stroke diagnosis?: No VTE Prior VTE?: No VTE Risk Level:: Medical - moderate - high VTE Device Contraindication: N/A - Device Ordered VTE Drug Contraindication: N/A - Med Ordered
--- NOTE | 2024-01-22 08:47 | P.DS_ITS ---
DS: Providers Provider Date of Service: 01/22/24 Date of admission: 01/21/24 06:44 Primary care physician: Chantal Magallanes MD Consults: 01/21/24 10:43 Consult to Hospitalist Routine Comment: Consulting Provider: Hospitalist Reason For Exam: medical management DS: Diagnosis Discharge Diagnosis (1) Status post total left knee replacement: Status: Acute DS: Summary Hospital Course Hospital Course: The patient underwent a successful Left total knee arthroplasty on 01/21/[address] Martinez, was transferred to PACU and then to the floor to recover. During their stay, their vitals were stable, afebrile at . Labs were unremarkable, H/H . POD 1 he was started on Lovenox once a day for DVT ppx, they also received Physical Therapy services twice a day. Physical therapy should include gait training, ROM to tolerance and quad strength. He is WBAT. Prior to discharge, aquacel was clean , dry and intact The Aquacel dressing should remain intact and dry at all times. Any concerns with the dressing, please contact orthopedic office. No showering. The plan is to be discharged home [facility] Time Attestation Discharge Coordination Time (in mins): 30 Quality: Safe Use of Opioids Does Pt have an Active Cancer Diagnosis on the Problem List?: No Quality: Stroke Does the patient have a stroke diagnosis?: No Physical Exam Vital Signs: Vital Signs: Last Vital Signs Temp 96.8 F 01/22/24 07:25 Pulse 65 01/22/24 07:25 Resp 18 01/22/24 07:25 BP 142/64 H 01/22/24 07:25 Pulse Ox 97 01/22/24 07:25 O2 Del Method Room Air 01/22/24 07:25 BMI result Body Mass Index 48.6 Const: General: cooperative, healthy appearing and no acute distress Resp: Effort & Inspection: normal respiratory effort and able to speak in complete sentences Cardio: Rate: regular rate Peripheral pulses: Peripheral pulses 2+ throughout GI: Palpation (GI): Soft to palpation Skin: General skin exam: no rashes or lesions noted Extrem: Other: bandage clean dry and intact. Cristiano intact. No erythema or joint effusion. Calf supple nontender. Neurovascularly intact. DS: Data Data Completed and Pending Pending studies at discharge: Pending at discharge 01/21/24 09:44 Surgical [PTH] Routine Labs on day of discharge: Laboratory Results - last 24 hr 01/22/24 05:41 WBC 11.3 H RBC 3.62 L Hgb 9.4 L Hct 29.7 L MCV 82.0 MCH 26.0 L MCHC 31.6 RDW 14.1 Plt Count 311 MPV 11.7 Immature Gran % (Auto) 0.4 Neut % (Auto) 63.8 Lymph % (Auto) 23.5 [place] % (Auto) 12.0 H Eos % (Auto) 0.0 Baso % (Auto) 0.3 Lymph # (Auto) 2.6 [place] # (Auto) 1.4 H Eos # (Auto) 0.0 Baso # (Auto) 0.0 Abs Immat Gran (auto) 0.04 H Absolute Neuts (auto) 7.2 Absolute Nucleated RBC 0.000 Nucleated RBC % (auto) 0.0 Sodium 140 Potassium 3.5 Chloride 103 Carbon Dioxide 28 Anion Gap 13 BUN 11 Creatinine 0.63 Estim Creat Clear Calc 105.8 Estimated GFR > 60 Fasting Glucose 108 H Calcium 9.7 Discharge Plan Discharge Anticipated Discharge Date/Time: 01/22/24 08:46 Patient Disposition: Home Health Service Discharge Diagnosis: LT TKA Referrals: Jake Patel PA-C [Physician Sliver Former] - 2 Weeks (02/05/24 15:00 [facility] [place] [facility] [place] [facility] Beth Shepard PA-C) Discharge Medications: New celecoxib 200 mg Capsule 200 mg PO BID 30 Days Qty: 60 0RF acetaminophen 325 mg Tablet 650 mg PO Q6H PRN (Reason: Pain, Mild (Pain Scale 1-3)) 30 Days Qty: 240 0RF docusate sodium 100 mg Capsule 100 mg PO BID 14 Days Qty: 28 0RF oxycodone 5 mg Tablet 5 mg PO Q4H PRN (Reason: Pain, Moderate(Pain Scale 4-6)) 7 Days Qty: 42 0RF Rx Instructions: Partial Fill upon patient request. enoxaparin 40 mg/0.4 mL Syringe 40 mg subcut Q24H 42 Days Qty: 16.8 0RF Continued valsartan 80 mg tablet 80 mg PO DAILY estradiol 0.5 mg tablet 0.5 mg PO BEDTIME triamterene-hydrochlorothiazid 37.5-25 mg tablet 1 tab PO DAILY pantoprazole 40 mg tablet,delayed release (DR/EC) 40 mg PO DAILY fluoxetine 20 mg capsule 40 mg PO QAM Discontinued acetaminophen 650 mg tablet extended release 1,300 mg PO Q8H PRN (Reason: pain) diclofenac sodium 75 mg tablet,delayed release (DR/EC) 75 mg PO TID tramadol 50 mg tablet 100 mg PO TID Discharge Orders: Discharge Order (Routine); Ordered 01/22/24 Ordered By: Jake Patel Diet: Regular diet Activity on Discharge: Use cane or walker Stand Alone Forms: Patient Portal Discharge page Care Plan Goals: Restore function of joint Health Concerns: none Plan of Treatment: Physical Therapy Pain management DVT prophylaxis Assessment: Physical Therapy for Total knee arthroplasty: WBAT, gait training, ROM 0-12, quad strength * Limit stair climbing * No showering, no tub bath-keep dressing clean, dry and intact * No driving x6 weeks * Continue Aspirin twice a day x 6 weeks * Follow up with [facility] [place] [facility] [place] [facility] in 2 weeks: * 02/04/2415:00[facility] [place] [facility] [place] [facility] SurgeonsBeth Shepard PA-C
[2024-01-22] MEDS: oxyCODONE HCl ER 10 MG TAB.ER.12H PO ×2 (08:51→20:10)
[2024-01-22] MEDS: Docusate Sodium 100 MG CAPSULE PO ×2 (08:51→20:10)
--- NOTE | 2024-01-22 08:51 | W.MHC.F2F ---
Service Date Service Date: 01/22/24 Encounter Date of encounter: 01/22/24 Reasons for Services Signs and symptoms assessed: Weakness, poor balance, poor gait mechanics Reason for physical therapy: home safety and mobility, therapeutic exercises, restore joint function, gait/transfer training, ADL training and energy conservation Reason for occupational therapy: home safety and mobility, therapeutic exercises, restore joint function, gait/transfer training, ADL training and energy conservation Homebound: Leaving the home is medically contraindicated at this time without the asist of a device and/or another person due th the listed conditions above and below. Reason homebound: unsteady gait / fall risk, pain with ambulation, poor balance / fall risk and unable to drive Homebound supporting statement: Pt. is considered home bound due to recent surgery. Unable to drive, poor balance, poor gait mechanics. Certification: Based on the above findings, I certify that this patient is confined to the home and needs intermittent care home care, physical therapy and/or speech therapy, or continues to need occupational therapy. The patient is under my care, and I have initiated the establishment of the plan of care. The patient will be followed by a physician who will periodically review the plan of care. Time Spent With Patient Time: Total time managing care of this patient today ____ minutes.
[2024-01-22] MEDS: Valsartan 80 MG TABLET PO (08:52)
[2024-01-22] MEDS: Celecoxib 200 MG CAPSULE PO ×2 (08:52→20:10)
[2024-01-22] MEDS: Enoxaparin Sodium 40 MG/0.4 ML SYRINGE SUBCUT (08:52)
[2024-01-22] MEDS: FLUoxetine HCl 20 MG CAPSULE 40 MG PO (08:52)
[2024-01-22] MEDS: Acetaminophen 325 MG TABLET 650 MG PO ×2 (09:04→18:22)
--- NOTE | 2024-01-22 09:34 | MHC.CM.PN ---
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
--- NOTE | 2024-01-22 13:32 | P.PNOP_ITS ---
Subjective Subjective Date of Service: 01/22/24 Interval history: POD 1 s/p LT TKA no overnight events she has been working with PT but c/o n/v Physical Exam Vital Signs: Vital Signs: Last Vital Signs Temp 96.8 F 01/22/24 07:25 Pulse 65 01/22/24 11:08 Resp 18 01/22/24 07:25 BP 142/64 H 01/22/24 11:08 Pulse Ox 97 01/22/24 11:08 O2 Del Method Room Air 01/22/24 07:25 BMI result Body Mass Index 48.6 Const: General: cooperative, healthy appearing and no acute distress Resp: Effort & Inspection: normal respiratory effort and able to speak in complete sentences Cardio: Rate: regular rate Peripheral pulses: Peripheral pulses 2+ throughout GI: Palpation (GI): Soft to palpation Skin: General skin exam: no rashes or lesions noted Extrem: Other: bandage clean dry and intact. [place] intact. No erythema or joint effusion. Calf supple nontender. Neurovascularly intact. Procedures Date of Service Date of Service: 01/22/24 Progress Note: A&P Assessment and plan (1) Status post total left knee replacement: Status: Acute Assessment and Plan: * Continue pain mgmnt * Begin lovenox for dvt ppx * begin PT for LT TKA * Dispo planning-Pending PT eval, pain mgmnt Need for continued inpatient stay: not cleared with PT Time Spent With Patient Time: Total time managing care of this patient today ____ minutes. Quality Stroke Does the patient have a stroke diagnosis?: No VTE Prior VTE?: No VTE Risk Level:: Medical - moderate - high VTE Device Contraindication: N/A - Device Ordered VTE Drug Contraindication: N/A - Med Ordered
--- NOTE | 2024-01-22 13:52 | HO.POSTANES ---
Post Anesthesia Evaluation Post Anesthesia Evaluation Date of Service: 01/22/24 Vital Signs: Vital Signs Temp Pulse Resp BP Pulse Ox O2 Del Method 01/22/24 13:31 65 142/64 H 97 01/22/24 11:08 65 142/64 H 97 01/22/24 09:17 65 142/64 H 97 01/22/24 07:25 96.8 F 65 18 142/64 H 97 Room Air 01/22/24 02:54 97.0 F 70 17 148/67 H 96 Room Air Anesthesia: Spinal and Nerve Block Mental Status: Awake Pain Control: Satisfactory Nausea/Vomiting: Mild Hydration: Adequate Anesthesia-Related Issues: No Anes. Related Issues
[2024-01-22] MEDS: estradioL 0.5 MG TABLET PO (20:10)
[2024-01-23] MEDS: HYDROmorphone HCl 0.5 MG/0.5 ML SYRINGE 0.25 MG IVPUSH (00:25)
[2024-01-23 03:08] VITALS: BP 146/67; PULSE 86; RESP 18; TEMP 36.2; O2SAT 95
[2024-01-23] MEDS: Acetaminophen 325 MG TABLET 650 MG PO (03:10)
[2024-01-23] MEDS: oxyCODONE HCl Immed Release 5 MG TABLET PO ×2 (03:10→06:56)
[2024-01-23] MEDS: Omeprazole 20 MG CAPSULE.DR PO (05:03)
[2024-01-23 05:23] LABS: MANUAL DIFF FLAG NO
[2024-01-23 05:25] LABS: Basophils Percent Auto 0.4 % (0-2); Eosinophils Absolute Auto 0.2 X10*3/uL (0.0-0.4); Eosinophils Percent Auto 1.7 % (0-4); Hematocrit 26.2 % (37.0-47.0); Hemoglobin 8.5 g/dl (12.0-16.0); Imm Gran Abs Auto 0.05 X10*3/uL (0.00-0.03); Imm Gran Pct Auto 0.5 % (0.0-0.4); Lymphocytes Absolute Auto 2.2 X10*3/uL (1.2-4.9); Lymphocytes Percent Auto 20.2 % (20-40); Mean Corpuscular HGB Conc 32.4 g/dl (31.0-35.0); Mean Corpuscular Hemoglobin 26.2 pg (27.0-33.0); Mean Corpuscular Volume 80.9 fL (80.0-98.0); Mean Platelet Volume 11.2 fL (9.4-12.3); Monocytes Absolute Auto 1.2 X10*3/uL (0.1-1.2); Monocytes Percent Auto 10.5 % (2-11); Neutrophils Absolute Auto 7.4 x10*3/uL (2.0-8.3); Neutrophils Percent Auto 66.7 % (45-73); Platelet Count 248 X10*3/uL (160-400); Red Blood Count 3.24 X10*6/uL (4.20-5.50); White Blood Count 11.1 X10*3/uL (4.8-10.8)
[2024-01-23 05:40] LABS: Anion Gap 11 (12-20); Blood Urea Nitrogen 15 mg/dL (9-16); Calcium 8.7 mg/dL (8.4-10.2); Carbon Dioxide 27 mmol/L (22-29); Chloride 104 mmol/L (96-108); Creatinine Clr Calc Pharmacy 96.6; Estimated Glomerular Filt Rate > 60; Glucose Fasting 122 mg/dL (60-99); Potassium 3.6 mmol/L (3.3-5.1); Sodium 138 mmol/L (135-145)
[2024-01-23] MEDS: Celecoxib 200 MG CAPSULE PO (06:56)
[2024-01-23] MEDS: oxyCODONE HCl ER 10 MG TAB.ER.12H PO (06:56)
[2024-01-23] MEDS: FLUoxetine HCl 20 MG CAPSULE 40 MG PO (06:56)
[2024-01-23] MEDS: 0.9 % Sodium Chloride Flush 3 ML SYRINGE IVFLUSH (06:56)
[2024-01-23] MEDS: Docusate Sodium 100 MG CAPSULE PO (06:56)
[2024-01-23] MEDS: Enoxaparin Sodium 40 MG/0.4 ML SYRINGE SUBCUT (06:57)
[2024-01-23] MEDS: Valsartan 80 MG TABLET PO (06:59)
[2024-01-23 07:06] VITALS: BP 138/62; PULSE 85; RESP 20; TEMP 36.8; O2SAT 96
[2024-01-23] MEDS: ondansetron HCL 4 MG/2 ML VIAL IVPUSH (08:49)
--- NOTE | 2024-01-23 09:19 | P.PNIM_ITS ---
Subjective Subjective Date of Service: 01/23/24 Interval History: f/u on med management post left TKA, dong well with therapy, pain controlled Physical Exam 2 Vital Signs: Vital Signs: Last Vital Signs Temp 98.2 F 01/23/24 07:06 Pulse 85 01/23/24 07:06 Resp 20 01/23/24 07:06 BP 138/62 01/23/24 07:06 Pulse Ox 96 01/23/24 07:06 O2 Del Method Room Air 01/23/24 07:06 BMI result Body Mass Index 48.6 Const: Other: General: AO X 3, no acute distress Resp: CTA bilateral CVS: S1,S2,RRR GI: +BS, NT, no distention Skin: No rash, no oozing from dressing Neuro: motor grossly intact Psych: appropriate affect Objective Data Active Medications Acetaminophen (Acetaminophen 325 Mg Tablet) 650 mg PO Q6H PRN PRN Reason: Pain, Mild (Pain Scale 1-3) Last Admin: 01/23/24 03:10 Dose: 650 mg Documented By: JANINE Celecoxib (Celecoxib 200 Mg Capsule) 200 mg PO BID [facility] Last Admin: 01/23/24 06:56 Dose: 200 mg Documented By: JUANJO Docusate Sodium (Docusate Sodium 100 Mg Capsule) 100 mg PO BID [facility] Last Admin: 01/23/24 06:56 Dose: 100 mg Documented By: JUANJO Enoxaparin Sodium (Enoxaparin Sodium 40 Mg/0.4 Ml Syringe) 40 mg SUBCUT Q24H [facility] Last Admin: 01/23/24 06:57 Dose: 40 mg Documented By: JUANJO Estradiol (Estradiol 0.5 Mg Tablet) 0.5 mg PO BEDTIME [facility] Last Admin: 01/22/24 20:10 Dose: 0.5 mg Documented By: JANINE Fluoxetine HCl (Fluoxetine Hcl 20 Mg Capsule) 40 mg PO DAILY [facility] Last Admin: 01/23/24 06:56 Dose: 40 mg Documented By: JUANJO Hydromorphone HCl (Hydromorphone Hcl 0.5 Mg/0.5 Ml Syringe) 0.25 mg IVPUSH Q4H PRN; Protocol PRN Reason: Pain, Severe (Pain Scale 7-10) Last Admin: 01/23/24 00:25 Dose: 0.25 mg Documented By: JANINE Promethazine HCl 6.25 mg/ (Sodium Chloride) 50.25 mls @ 201 mls/hr IV Q4H PRN PRN Reason: Nausea and Vomiting Omeprazole (Omeprazole 20 Mg Capsule.Dr) 20 mg PO DAILY@0630 [facility] Last Admin: 01/23/24 05:03 Dose: 20 mg Documented By: JANINE Ondansetron HCl (Ondansetron Hcl 4 Mg/2 Ml Vial) 4 mg IVPUSH Q8H PRN PRN Reason: Nausea and Vomiting Last Admin: 01/23/24 08:49 Dose: 4 mg Documented By: SHARA Oxycodone HCl (Oxycodone Hcl Immed Release 5 Mg Tablet) 5 mg PO Q4H PRN PRN Reason: Pain, Moderate(Pain Scale 4-6) Last Admin: 01/23/24 06:56 Dose: 5 mg Documented By: JUANJO Oxycodone HCl (Oxycodone Hcl Er 10 Mg Tab.Er.12h) 10 mg PO BID [facility] Last Admin: 01/23/24 06:56 Dose: 10 mg Documented By: JUANJO Sodium Chloride (0.9 % Sodium Chloride Flush 3 Ml Syringe) 3 ml IVFLUSH QSHIFT [facility] Last Admin: 01/23/24 06:56 Dose: 3 ml Documented By: JUANJO Valsartan (Valsartan 80 Mg Tablet) 80 mg PO DAILY [facility]; Protocol Last Admin: 01/23/24 06:59 Dose: 80 mg Documented By: JUANJO Labs 01/23/24 05:01 01/23/24 05:01 Labs: Laboratory Results - last 24 hr 01/23/24 05:01 MCV 80.9 MCH 26.2 L MCHC 32.4 RDW 14.0 Plt Count 248 MPV 11.2 Immature Gran % (Auto) 0.5 H Neut % (Auto) 66.7 Lymph % (Auto) 20.2 [place] % (Auto) 10.5 Eos % (Auto) 1.7 Baso % (Auto) 0.4 Lymph # (Auto) 2.2 [place] # (Auto) 1.2 Eos # (Auto) 0.2 Baso # (Auto) 0.0 Abs Immat Gran (auto) 0.05 H Absolute Neuts (auto) 7.4 Absolute Nucleated RBC 0.000 Nucleated RBC % (auto) 0.0 Anion Gap 11 L Estim Creat Clear Calc 96.6 Estimated GFR > 60 Fasting Glucose 122 H Calcium 8.7 D Assessment and Plan (1) HTN (hypertension): Status: Acute (2) History of partial nephrectomy: Status: Acute (3) Osteoarthritis of left knee: Status: Acute (4) Morbid obesity with BMI of 45.0-49.9, adult: Status: Acute Plan 63 year old female with chronic medical issues including HTN, h/o nephrectom,CKD, GERD and OA. She underwent Left TKA today and is doing well post op having already getting out of bed and taking some steps. s/p L TKA 01/20--management per surgery HTN--resume home meds upon dishcarge Obesity --weight loss advised GERD--PPI Mood desorder--Fluoxetine Anemia--related to acute blood loss from operation, h/h above transfusion threshold DVT P: lovenox med issues stable, no acute issues and signing off Quality Stroke Does the patient have a stroke diagnosis?: No VTE Prior VTE?: No VTE Risk Level:: Medical - moderate - high VTE Device Contraindication: N/A - Device Ordered VTE Drug Contraindication: N/A - Med Ordered
[2024-01-23 09:36] VITALS: BP 138/62; PULSE 85; O2SAT 96
--- NOTE | 2024-01-30 14:44 | W.PM.OPN ---
Operative Note Operative Note Date of Service: 01/21/24 Narrative: ate of Service: 01/21/24 Pre-op diagnosis: left knee OA Post-op diagnosis: same Procedure: Left TKA Implants: Styrker Triathlon posterior stabilized cemented 01/10/13ps/29a Surgeon: Selvin Martinez MD Anesthesia: regional and spinal Was an Staffing Account Manager used for this Procedure?: Yes Staffing Account Manager: Jake Patel Estimated blood loss (mL): 20 Tourniquet time (min): 61 IV fluids (mL): 1,000 Pathology: other Condition: stable Disposition: PACU Procedure in detail: The patient was brought to the operating room and prepped and draped in standard sterile fashion. A time-out was called to identify proper site proper procedure proper surgeon and IV antibiotics were administered. 1 g of IV TXA was administered. I began by making a midline incision to the retinaculum and performed a medial parapatellar arthrotomy. The patella was translated laterally and the knee was flexed up. There was tricompartmental eburnation. I performed a small medial peel and resected the infrapatellar fat pad. Marguerite's line was then used to drill my intramedullary femoral guide and my distal femur cut of 12mm was made in 5 degrees of valgus while protecting the soft tissues. I then measured a # 3 femur and placed my cutting guide and made my anterior posterior and chamfer cuts protecting the soft tissues at all times. I then made my box but removing the PCL. Once I was satisfied with my cuts I turned my attention to the tibia. I removed the meniscus medially and laterally and , using an external cutting guide, in line with the tibial crest and the third ray, I made my distal tibial cut in 0 deg slope of while protecting the posterior soft tissues at all times. An extension block was used to confirm appropriate amount of bony resection. I then sized a #3 tibia and once I was satisfied that there was complete tibial coverage I placed my trial and with the trial femur in place took the knee through range of motion. I was satisfied with the extension and flexion as well as the balance at 0, 30 and 90 degrees. I then turned my attention to the patella where I removed 1 cm from the undersurface of the patella and then trialed a 29a patellar button. Again the knee was taken through range of motion I was satisfied with the tracking. I then prepared the tibia with a drill and punch. A femoral bone plug was placed and the knee was irrigated copiously. I then cemented the patella, tibia and femur in standard fashion. Axial compression adn a clamp were used while the cement dried. Once the cement was hard on the back table all excess cement was removed and I trialed different inserts until I selected a #13ps insert. The final insert was placed and local TXA was administered. A Werewolf cautery wand was used to maintain hemostasis over the capsule and meniscal beds, the gutters and peripatellar soft tissues. The knee was then closed with a running Quill suture, a 3 0 Vicryl and elke on the skin. Patient was then placed in sterile dressing and brought to recovery room in stable condition there were no known complications.
== END 2024-01-23 11:13 | disposition home health service (06) | DRG 326 ==
LOC: HO.SSSA 06:52 → HO.S3 10:25
PROVIDERS: Physician Assistant; Admitting Provider Orthopaedic Surgery; PCP Internal Medicine; Visit Provider Orthopaedic Surgery
PROC: 0SRD0J9 Replacement of Left Knee Joint with Synthetic Substitute, Cemented, Open Approach (ICD-10-PCS; CPT 27447; principal; 2024-01-21 08:40)
DX: M17.12 Unilateral primary osteoarthritis, left knee (principal); E66.9 Obesity, unspecified; Z68.42 Body mass index [BMI] 45.0-49.9, adult; G89.18 Other acute postprocedural pain; Z87.891 Personal history of nicotine dependence; K21.9 Gastro-esophageal reflux disease without esophagitis; Z79.899 Other long term (current) drug therapy
CPT/HCPCS: 36415; 73560; 80048; 85025; 86850; 86900; 86901; 87640; 87641; 88305; 88311; 97110; 97116; 97162; C1713; C1776; J0131; J0171; J0665; J0690; J1100; J1170; J1650; J2250; J2405; J2704; J7120

== ENCOUNTER → 2024-01-21 06:44 | Outpatient (BNV) | payer OTHER, SELFPAY | PROVIDERS: Admitting Provider Orthopaedic Surgery; PCP Internal Medicine; Visit Provider Orthopaedic Surgery | DX: Z47.1 Aftercare following joint replacement surgery (principal); Z96.652 Presence of left artificial knee joint | CPT/HCPCS: 27447; 99024; G0180 ==

== ENCOUNTER → 2024-01-21 06:44 | Outpatient (BNV) | payer OTHER, SELFPAY | PROVIDERS: Admitting Provider Orthopaedic Surgery; PCP Internal Medicine; Visit Provider Internal Medicine | DX: I10 Essential (primary) hypertension (principal); Z90.5 Acquired absence of kidney; M17.12 Unilateral primary osteoarthritis, left knee; E66.01 Morbid (severe) obesity due to excess calories; Z68.42 Body mass index [BMI] 45.0-49.9, adult | CPT/HCPCS: 99222; 99231; 99232 ==

== ENCOUNTER 2024-02-05 09:33 | Outpatient (REF) | payer OTHER, SELFPAY ==
--- NOTE | ~2024-02-05 | XR_ITS ---
EXAMINATION: XR KNEE, LEFT CLINICAL INFORMATION: Pain in unspecified knee. COMPARISON: 01/21/2024, 01/15/2024. TECHNIQUE: AP standing view of bilateral knees. Lateral and sunrise views of the left knee of the left knee. FINDINGS: LEFT KNEE: Redemonstration of total left knee arthroplasty. Hardware appears intact. Large joint effusion. Expected postoperative changes with anterior elke. Decreased subcutaneous lucencies. Alignment is stable. AP STANDING VIEW RIGHT KNEE: Redemonstration of advanced degenerative changes most severe in the medial compartment of the right knee. XR/XR knee LT 3V IMPRESSION: Redemonstration of total left knee arthroplasty. Hardware appears intact. Large joint effusion. Alignment is stable.
== END 2024-02-05 09:34 | disposition home or self-care (01) ==
LOC: HO.HOSX 09:33
PROVIDERS: Visit Provider Physician Assistant
DX: M25.562 Pain in left knee (principal); Z96.652 Presence of left artificial knee joint
CPT/HCPCS: 73562; 99212

== ENCOUNTER 2024-02-05 14:50 | Outpatient (AMB) | payer OTHER, SELFPAY ==
--- NOTE | 2024-02-05 15:05 | A.OFFVIS_ITS ---
Intake Intake Visit Reasons: PO LT TKA 01/21/24 NE Intake Note: Mikki is a 63 year old female who presents today for a post op appointment s/p LT TKA 01/21/24 NE. Patient reports she is doing well, she just has a few questions about driving, showering and pain medication. Allergies morphine Allergy (Severe, Verified 02/05/24 15:28) Vomiting ciprofloxacin [Cipro HC] Adverse Reaction (Intermediate, Verified 02/05/24 15:28) insomnia HPI PO LT TKA 01/21/24 NE HPI Details 63-year-old female who presents in the o ffice today 15 days status post left total knee arthroplasty, which was performed on 01/21/[address] Martinez. Patient confirms ambulating with a cane while at home. [facility] Medical History (Updated 01/21/24 @ 15:16 by Robb Velazquez MD) Anemia Urinary retention History of nephrolithiasis Chronic kidney disease, stage 3 Hx of hydronephrosis Hx of pyelonephritis Osteoarthritis BORA on CPAP Depression Anxiety PONV (postoperative nausea and vomiting) GERD (gastroesophageal reflux disease) HTN (hypertension) History of primary malignant neoplasm of right kidney (~11/2022) Renal calculus, left Surgical History (Updated 01/22/24 @ 08:47 by Jake Patel PA-C) History of nephrectomy, right Hx of eye surgery History of esophagogastroduodenoscopy (EGD) Hx of colonoscopy H/O ventral hernia repair (~05/2023) Hx of cystoscopy (~2020) Hx of hand surgery H/O: hysterectomy (~1998) History of carpal tunnel release History of spinal fusion Social History Household Members: None Housing: House Are you a primary animal care giver to a significant other at home: No Do you presently have visiting nurse or other home services: No Patient Tobacco Use Status: Former Tobacco user Quit Date: 2013 Tobacco use type: Cigarette Years Smoked: 30 e-Cigarette/Vaping Use: Never Used service: No Review of Systems Const All systems reviewed & are unremarkable except as noted in HPI and below Physical Exam Const General: cooperative, healthy appearing and no acute distress Resp Effort & Inspection: normal respiratory effort and able to speak in complete sentences Cardio Rate: regular rate Peripheral pulses: Peripheral pulses 2+ throughout GI Palpation (GI): Soft to palpation Skin Lesions: no lesions Rashes: no rashes Extrem Other: Left knee: Incision site is clean, dry, and intact. Cristiano intact. No drainage. At the distal end of the incision site there is a small quarter sized area of erythema which I believe is due to the adhesive from her bandage. No signs of infection. ROM is 0-100 degrees. NVI. Assessment & Plan Assessment & Plan (1) Status post total left knee replacement: Code(s): Z96.652 - Presence of left artificial knee joint Plan Ms. Rutledge is a 63-year-old female who presents in the office today 15 days status post left total knee arthroplasty, which was performed on 01/21/[address] Martinez. Cristiano were removed and steri-stripes were applied. She has already began to work with PT on Friday02/02/2024. Educated the patient she should be 6 weeks post op and not taking pain medication before she is able to drive. Call the office if you are in need of a refill for the blood thinner. A refill for Oxycosone 5 mg PO Q4H with 42 tabs for 7 days was sent to the pharmacy. Follow up will be in [address] Martinez, or sooner if needed. X-rays of the left knee which were obtained while in the office today and were reviewed by me, Beth Shepard PA-C, revealed intact orthopedic hardware with proper alignment of the prosthesis. Orders: Orders XR knee LT 3V Today M25.569 - Pain in unspecified knee Medications: Refilled oxycodone Partial Fill upon patient request. 5 mg PO Q4H 7 days PRN 42 tabs 0RF Pain, Moderate(Pain Scale 4-6) Patient Instructions: Scribed by Cass Null medical representative, for Beth Shepard PA-C on 02/05/2024 at 3:12 pm, EST. Coding Level of Care Code Global (96883) Diagnoses Status post total left knee replacement Z96.652
== END 2024-02-05 15:29 | disposition home or self-care (01) ==
PROVIDERS: PCP Internal Medicine; Visit Provider Physician Assistant
DX: Z96.652 Presence of left artificial knee joint (principal)
CPT/HCPCS: 99024

== ENCOUNTER 2024-03-02 07:00 | Outpatient (RCR) | payer OTHER, SELFPAY ==
--- NOTE | 2024-02-04 13:01 | MHC.PT.EP ---
[facility] [place] Office [place] Office [place] Office [address] [phone] F: [phone] F: [phone] F: [phone] F: [phone] Physical Therapy Plan of Care Date of Evaluation: 02/04/24 Date of Surgery: Diagnosis: L TKR Assessment: Pt IS 63 YO F S/P L TKR ON 01/21/[address] VELASQUEZ. HAD TROUBLE WITH PAIN CONTROL INITIALLY, BUT NOW BETTER. HAD PT IN HOSPITAL, THEN HOME PT, NOW FOR OUTPt. PRESENTS WITH L LE SWELLING (DSG/SHAYNE STILL IN..PO VISIT TOMORROW), ANTALGIC GT (WW), LIMITED L KNEE ROM, DECREASED L LE STRENGTH AND PAIN. SHOULD BENEFIT FROM PT TO ADDRESS THESE ISSUES. OF NOTE, Pt PLANS TO HAVE R KNEE REPLACED IN NEAR FUTURE Frequency and Duration: The patient will be seen 2X/WK X 8 WKS Short Term Goals: 1. INCREASED AWARENESS KNEE CARE 2. GT WITH LRAD WITH GOOD FORM/PATTERN Fiscal Specialist Goals: 1. I HEP WITH DC EX PLAN 2. L KNEE ROM 0-125 3. DECREASED L KNEE PAIN AT LEAST 50% WITH ADLS Treatment Plan: Modalities to reduce pain, spasms and effusion. Manual therapy to restore motion and function. Therapeutic exercise to improve strength and flexibility. Neuromuscular re-education for posture and balance. Therapeutic activities to return to functional activities of daily living. Electronically signed by: OLIVIA MORENO PT Please sign and return to therapist. Thank you for your referral.
== END 2024-03-04 13:45 | disposition home or self-care (01) ==
LOC: HO.PTWFD 07:00
PROVIDERS: PCP Internal Medicine; Visit Provider Physician Assistant
DX: Z96.652 Presence of left artificial knee joint (principal)
CPT/HCPCS: 97110; 97140; 97161; 97530; 97535

== ENCOUNTER 2024-03-04 08:58 | Outpatient (AMB) | payer OTHER, SELFPAY ==
--- NOTE | 2024-03-04 09:12 | MHC.OFFVIS ---
Vital Signs 03/04/24 09:13 Height 5 ft Intake Visit Reasons: PO 6 week Lt TKA 01/21/24 NE Intake Note: Mikki is a 64 year old female who presents today for a post operative appointment s/p Left TKA 01/21/24. Patient reports that she is doing well, she states that she noticed a rash of small bilsters at the middle of the incisions. She also states that she has a toothache and is concenred that she will not be able to take care of it She would like to move forward with right TKA Allergies morphine Allergy (Severe, Verified 02/05/24 15:28) Vomiting ciprofloxacin [Cipro HC] Adverse Reaction (Intermediate, Verified 02/05/24 15:28) insomnia HPI HPI PO 6 week Lt TKA 01/21/24 NE: Details: Mikki is a 64 year old female who presents today for a post operative appointment s/p Left TKA 01/21/24. Patient reports that she is doing well, she states that she noticed a rash of small bilsters at the middle of the incisions. She also states that she has a toothache and is concenred that she will not be able to take care of it She would like to move forward with right TKA PFSH Medical History Osteoarthritis of left knee Morbid obesity with BMI of 45.0-49.9, adult Anemia Urinary retention History of nephrolithiasis Chronic kidney disease, stage 3 Hx of hydronephrosis Hx of pyelonephritis Osteoarthritis BORA on CPAP Depression Anxiety PONV (postoperative nausea and vomiting) GERD (gastroesophageal reflux disease) HTN (hypertension) History of primary malignant neoplasm of right kidney (~11/2022) Renal calculus, left Surgical History History of partial nephrectomy History of nephrectomy, right Hx of eye surgery History of esophagogastroduodenoscopy (EGD) Hx of colonoscopy H/O ventral hernia repair (~05/2023) Hx of cystoscopy (~2020) Hx of hand surgery H/O: hysterectomy (~1998) History of carpal tunnel release History of spinal fusion Social History Household Members: None Housing: House Are you a primary hospice patient care secretary to a significant other at home: No Do you presently have visiting nurse or other home services: No Patient Tobacco Use Status: Former Tobacco user Quit Date: 2013 Tobacco use type: Cigarette Years Smoked: 30 e-Cigarette/Vaping Use: Never Used service: No Physical Exam Extrem Other: Left knee was 0-130 degrees of motion. Stable arc of motion. Incision clean dry and intact. Right knee with medial joint line tenderness and loss of terminal extension with antalgic gait Assessment & Plan Assessment & Plan (1) Status post total left knee replacement: Code(s): Z96.652 - Presence of left artificial knee joint Category: Surgical Plan: Left knee is doing very well. Continue strengthening physical therapy. She needs to go to the dentist as she has a toothache but I warned her of the risks and she will need to take prophylactic antibiotics. (2) Osteoarthritis of right knee: Code(s): M17.11 - Unilateral primary osteoarthritis, right knee Category: Medical Plan: This is a 64-year-old woman with severe right knee osteoarthritis with tibial bone loss. I recommend knee arthroplasty. She did exceptionally well after her left knee replacement would like to proceed forward. She understands the risks, benefits and alternatives as recently went through this with her left knee. We will begin the preoperative clearance process. Coding Level of Care Code Est Pt Level 4 (40526) Global (05918) Diagnoses Status post total left knee replacement Z96.652 Osteoarthritis of right knee M17.11
== END 2024-03-04 09:50 | disposition home or self-care (01) ==
PROVIDERS: PCP Internal Medicine; Visit Provider Orthopaedic Surgery
DX: Z47.1 Aftercare following joint replacement surgery (principal); Z96.652 Presence of left artificial knee joint; M17.11 Unilateral primary osteoarthritis, right knee
CPT/HCPCS: 99024; 99214

== ENCOUNTER → 2024-03-04 08:58 | Outpatient (BNVA) | payer OTHER, SELFPAY | PROVIDERS: PCP Internal Medicine; Visit Provider Orthopaedic Surgery | DX: Z47.1 Aftercare following joint replacement surgery (principal); M17.11 Unilateral primary osteoarthritis, right knee; Z96.652 Presence of left artificial knee joint | CPT/HCPCS: 99212 ==

== ENCOUNTER → 2024-03-26 08:51 | Outpatient (BNVA) | payer MEDICARE, MEDICAID, SELFPAY | PROVIDERS: PCP Internal Medicine | DX: Z01.818 Encounter for other preprocedural examination (principal) ==

== ENCOUNTER 2024-04-22 12:00 | Outpatient (REF) | payer MEDICARE, MEDICAID, SELFPAY ==
--- NOTE | ~2024-04-22 | XR_ITS ---
EXAMINATION: XR KNEE, RIGHT CLINICAL INFORMATION: Pain. COMPARISON: Radiographs dated 01/28/2024. TECHNIQUE: Lateral and axial views of the right knee are submitted. FINDINGS: There is mild bony demineralization. Again, there is tricompartment osteoarthritic change, with marked osteoarthritic change of the patellofemoral compartment, most pronounced medially. No fracture, dislocation or significant joint effusion is seen. There is no foreign body. XR/XR knee RT 2V IMPRESSION: 1. There is tricompartment osteoarthritic change of the right knee, marked of the patellofemoral compartment on the submitted views. 2. No fracture, dislocation or joint effusion is seen.
== END 2024-04-22 12:01 | disposition home or self-care (01) ==
LOC: HO.HOSX 12:00
PROVIDERS: Visit Provider Physician Assistant
DX: Z01.818 Encounter for other preprocedural examination (principal); M17.11 Unilateral primary osteoarthritis, right knee
CPT/HCPCS: 73560; 99212

== ENCOUNTER 2024-04-22 13:20 | Outpatient (AMB) | payer MEDICARE, MEDICAID, SELFPAY ==
--- NOTE | 2024-04-22 13:39 | MHC.OFFVIS ---
Intake Visit Reasons: Pre-Op R TKA w/NE 04/27/24 Intake Note: Mikki a 64 year old female who presents today for a preoperative visit of right TKA 04/27/24 NE. Pain management agreement reviewed and signed. Allergies morphine Allergy (Severe, Verified 04/22/24 13:57) Vomiting adhesive tape Adverse Reaction (Intermediate, Verified 04/22/24 13:57) Blister/rash ciprofloxacin [Cipro HC] Adverse Reaction (Intermediate, Verified 04/22/24 13:57) insomnia HPI Comments Details: Ms Rutledge presents to the office today for preop visit. She is scheduled for right total knee arthroplasty with Dr. Martinez. She continues to have ongoing pain and difficulty with ambulation in the right knee, which is affecting her quality of life; therefore, she has elected to move forward with surgery. [facility] Medical History Anemia Urinary retention History of nephrolithiasis Chronic kidney disease, stage 3 Hx of hydronephrosis Hx of pyelonephritis Osteoarthritis BORA on CPAP Depression Anxiety PONV (postoperative nausea and vomiting) GERD (gastroesophageal reflux disease) HTN (hypertension) History of primary malignant neoplasm of right kidney (~11/2022) Renal calculus, left Osteoarthritis of left knee Morbid obesity with BMI of 45.0-49.9, adult Surgical History History of total left knee replacement History of nephrectomy, right Hx of eye surgery History of esophagogastroduodenoscopy (EGD) Hx of colonoscopy H/O ventral hernia repair (~05/2023) Hx of cystoscopy (~2020) Hx of hand surgery H/O: hysterectomy (~1998) History of carpal tunnel release History of spinal fusion Social History Household Members: None Housing: House Housing Other:: 1st floor of two family house Are you a primary long term care administrator to a significant other at home: No Do you presently have visiting nurse or other home services: No Patient Tobacco Use Status: Former Tobacco user Tobacco use type: Cigarette Years Smoked: 30 e-Cigarette/Vaping Use: Never Used service: No Review of Systems Const All systems reviewed & are unremarkable except as noted in HPI and below Physical Exam Const General: cooperative, healthy appearing, comfortable, no acute distress, well developed and alert Orientation/consciousness: patient oriented x3 HEENT Head: Yes normal to inspection, Yes normocephalic and Yes atraumatic Eyes General: appearance normal, both eyes and all related structures Neck Neck: Yes normal visual inspection and Yes no lymphadenopathy Resp Effort & Inspection: normal respiratory effort and able to speak in complete sentences Cardio Rate: regular rate Peripheral pulses: Peripheral pulses 2+ throughout GI Inspection: Yes normal to inspection Palpation (GI): Soft to palpation Skin General skin exam: no rashes or lesions noted Lesions: no lesions Rashes: no rashes Neuro General: patient oriented x3 Extrem Other: Right knee: Normal to inspection. Diffused tenderness throughout the knee. ROM is 0-100 degrees. Calf supple, nontender. NVI. Psych Appearance: grossly normal Mental Status: mental status grossly normal Assessment & Plan Assessment & Plan (1) Osteoarthritis of right knee: Code(s): M17.11 - Unilateral primary osteoarthritis, right knee Category: Medical Plan I discussed in detail the procedure and what to expect pre and post operatively. We discussed the risks, benefits and alternatives to the surgery as well as the rehabilitation course. The risks; which include, but are not limited to infection, bleeding, nerve injury, ongoing pain, swelling, and stiffness, perioperative risk of injury to bones and soft tissues, and blood clots. I?ve answered all questions and with their understanding they have consented to move forward with Right total knee arthro[facility] Orders: Orders PT Evaluation and Treatment 04/22/24 Z96.651 - Presence of right artificial knee joint XR knee RT 2V 04/22/24 M25.569 - Pain in unspecified knee Patient Instructions: Scribed for Jake Patel PA-C, by Xavier Oneill medical billing instructor, on 04/22/2024 at 1:15 PM EST.? I, Jake Patel PA-C, have personally reviewed and agree with the information entered by the scribe. Coding Level of Care Code Est Pt Level 3 (12946) Diagnoses Osteoarthritis of right knee M17.11
== END 2024-04-22 16:15 | disposition home or self-care (01) ==
PROVIDERS: PCP Internal Medicine; Visit Provider Physician Assistant
DX: M17.11 Unilateral primary osteoarthritis, right knee (principal)
CPT/HCPCS: 99214

== ENCOUNTER 2024-04-27 06:11 | Inpatient (IN) | payer MEDICARE, MEDICAID, SELFPAY ==
[2024-04-13 13:23] VITALS: BP 113/62; PULSE 89; RESP 18; O2SAT 97; BMI 46.1
--- NOTE | 2024-04-13 13:33 | HO.ANESPROP2 ---
Documented by User: Zaria Le NP 04/26/24 08:26 HPI - Anesthesia Eval Consult details Narrative: 64yo F for?Right Knee Replacement Total, 04/27/24 s/p Left side 01/2024 with spinal and block - no anesthetic issues. Reports significant GERD for weeks postop. ? celebrex Medically optimized No recent illness No CP/SOB with minimal activity PONV. Scop patch with left knee with good effect BORA. CPAP QHS. GERD. Mostly covered by ppi PMFSH Active Problems Active Problems: All Active Problems Status post total left knee replacement (Acute) Osteoarthritis of right knee (Acute) Past Medical History Medical History Anemia Urinary retention History of nephrolithiasis Chronic kidney disease, stage 3 Hx of hydronephrosis Hx of pyelonephritis Osteoarthritis BORA on CPAP Depression Anxiety PONV (postoperative nausea and vomiting) GERD (gastroesophageal reflux disease) HTN (hypertension) History of primary malignant neoplasm of right kidney (~11/2022) Renal calculus, left Osteoarthritis of left knee Morbid obesity with BMI of 45.0-49.9, adult Family History Family history of problems with anesthesia: No Surgical History Surgical History History of total left knee replacement History of nephrectomy, right Hx of eye surgery History of esophagogastroduodenoscopy (EGD) Hx of colonoscopy H/O ventral hernia repair (~05/2023) Hx of cystoscopy (~2020) Hx of hand surgery H/O: hysterectomy (~1998) History of carpal tunnel release History of spinal fusion History of Problems with Anesthesia: Yes (PONV) Social History Social History Household Members: None Housing: House Housing Other:: 1st floor of two family house Are you a primary career technology teacher to a significant other at home: No Do you presently have visiting nurse or other home services: No Patient Tobacco Use Status: Former Tobacco user Tobacco use type: Cigarette Years Smoked: 30 e-Cigarette/Vaping Use: Never Used Have you been hit, kicked, punched, or otherwise hurt by someone within the past year? If so, by whom?: No Are you DNR?: No Advance Directives Information Provided: Yes (as above noted) Advance Directives on File: No Recently lost weight without trying: No Eating poorly because of decreased appetite: No Nutrition Risks: No Nutritional Risk Poor oral hygiene: No service: No Meds Allergies Allergy/AdvReac Type Severity Reaction Status Date / Time morphine Allergy Severe Vomiting Verified 04/27/24 06:20 adhesive tape AdvReac Intermediate Blister/julio Verified 04/27/24 06:20 h ciprofloxacin [Cipro HC] AdvReac Intermediate insomnia Verified 04/27/24 06:20 Home Medications ?Medication ?Instructions ?Recorded ?Confirmed ?Last Taken ?Type estradiol 0.5 mg tablet 0.5 mg PO BEDTIME 07/08/22 04/13/24 04/26/24 History pantoprazole 40 mg tablet,delayed 40 mg PO QA 07/08/22 04/13/24 04/27/24 05:00 History release triamterene 37.5 1 tab PO QA 07/08/22 04/13/24 04/26/24 History mg-hydrochlorothiazide 25 mg tablet valsartan 80 mg tablet 80 mg PO QA 01/14/24 04/13/24 04/26/24 History tramadol 50 mg tablet 100 mg PO TID PRN Pain 03/04/24 04/13/24 Unknown History citalopram 20 mg tablet 20 mg PO QAM 04/12/24 04/13/24 04/26/24 History phentermine 15 mg capsule 15 mg PO QAM 04/12/24 04/13/24 04/26/24 History calcium carbonate 600 mg-vitamin 1 tab PO QAM 04/13/24 04/13/24 04/26/24 History D3 5 mcg (200 unit) tablet cholecalciferol (vitamin D3) 25 25 mcg PO QAM 04/13/24 04/13/24 04/26/24 History mcg (1,000 unit) capsule (Vitamin D3) diclofenac sodium 75 mg 75 mg PO TID 04/13/24 04/13/24 04/20/24 History tablet,delayed release magnesium oxide 400 mg PO QAM 04/13/24 04/13/24 04/26/24 History pyridoxine (vitamin B6) 100 mg 100 mg PO QAM 04/13/24 04/13/24 04/26/24 History tablet (Vitamin B-6) Exam Height,Weight and Vital Signs: Height 5 ft Weight 107 kg Last Vital Signs Pulse 89 04/13/24 13:23 Resp 18 04/13/24 13:23 BP 113/62 04/13/24 13:23 Pulse Ox 97 04/13/24 13:23 O2 Del Method Room Air 04/13/24 13:23 Pertinent Lab Results Pertinent Lab Results: Lab Results 04/13/24 04/13/24 Range/Units 13:30 13:56 WBC 10.1 (4.8-10.8) X10*3/uL RBC 3.99 L D (4.20-5.50) X10*6/uL Hgb 9.5 L (12.0-16.0) g/dl Hct 31.5 L D (37.0-47.0) % MCV 78.9 L (80.0-98.0) fL MCH 23.8 L (27.0-33.0) pg MCHC 30.2 L (31.0-35.0) g/dl RDW 14.5 (11.0-16.0) % Plt Count 368 D (160-400) X10*3/uL MPV 10.7 (9.4-12.3) fL Absolute Nucleated RBC 0.000 (0.0-0.012) X10*3/uL Nucleated RBC % (auto) 0.0 (0.0-0.2) /100WBC Sodium 141 (135-145) mmol/L Potassium 3.9 (3.3-5.1) mmol/L Chloride 104 (96-108) mmol/L Carbon Dioxide 24 (22-29) mmol/L Anion Gap 17 (12-20) BUN 21 H (9-16) mg/dL Creatinine 0.73 (0.5-1.4) mg/dL Estim Creat Clear Calc 87.2 Estimated GFR > 60 Random Glucose 102 (60-115) mg/dL Calcium 10.0 D (8.4-10.2) mg/dL Nasal Screen MRSA (PCR) NEGATIVE (Negative) Nasal S. aureus Screen NEGATIVE (Negative) Nasal MRSA/S.aureus Interp SEE NOTE Blood Type O Negative Antibody Screen NEGATIVE Narrative Narrative: EKG 12/2023 SR @ 87 RBBB LVH Inf infarct, old Airway Mallampati Class: III TM Dist: >3cm Neck ROM: Full (s/p Cspine fusion with full ROM) Loose/Missing/Broken Teeth: Yes (Molar pulled) Heart: RRR Lungs: CTAB Assessment and Plan Assessment Anesthesia Assessment: Anesthesia Plan Discussed and PAT Visit Final Anesthetic Review Family History of Problems with Anesthesia: No History of Problems with Anesthesia: Yes (PONV) Documented by User: Estela Page MD 04/27/24 08:21 [facility] Past Medical History Medical History Anemia Urinary retention History of nephrolithiasis Chronic kidney disease, stage 3 Hx of hydronephrosis Hx of pyelonephritis Osteoarthritis BORA on CPAP Depression Anxiety PONV (postoperative nausea and vomiting) GERD (gastroesophageal reflux disease) HTN (hypertension) History of primary malignant neoplasm of right kidney (~11/2022) Renal calculus, left Osteoarthritis of left knee Morbid obesity with BMI of 45.0-49.9, adult Surgical History Surgical History History of total left knee replacement History of nephrectomy, right Hx of eye surgery History of esophagogastroduodenoscopy (EGD) Hx of colonoscopy H/O ventral hernia repair (~05/2023) Hx of cystoscopy (~2020) Hx of hand surgery H/O: hysterectomy (~1998) History of carpal tunnel release History of spinal fusion Social History Social History Household Members: None Housing: House Housing Other:: 1st floor of two family house Are you a primary career technology teacher to a significant other at home: No Do you presently have visiting nurse or other home services: No Patient Tobacco Use Status: Former Tobacco user Tobacco use type: Cigarette Years Smoked: 30 e-Cigarette/Vaping Use: Never Used Have you been hit, kicked, punched, or otherwise hurt by someone within the past year? If so, by whom?: No Are you DNR?: No Advance Directives Information Provided: Yes (as above noted) Advance Directives on File: No Recently lost weight without trying: No Eating poorly because of decreased appetite: No Nutrition Risks: No Nutritional Risk Poor oral hygiene: No service: No Meds Allergies Allergy/AdvReac Type Severity Reaction Status Date / Time morphine Allergy Severe Vomiting Verified 04/27/24 06:20 adhesive tape AdvReac Intermediate Blister/julio Verified 04/27/24 06:20 h ciprofloxacin [Cipro HC] AdvReac Intermediate insomnia Verified 04/27/24 06:20 Home Medications ?Medication ?Instructions ?Recorded ?Confirmed ?Last Taken ?Type estradiol 0.5 mg tablet 0.5 mg PO BEDTIME 07/08/22 04/13/24 04/26/24 History pantoprazole 40 mg tablet,delayed 40 mg PO QAM 07/08/22 04/13/24 04/27/24 05:00 History release triamterene 37.5 1 tab PO QAM 07/08/22 04/13/24 04/26/24 History mg-hydrochlorothiazide 25 mg tablet valsartan 80 mg tablet 80 mg PO QAM 01/14/24 04/13/24 04/26/24 History tramadol 50 mg tablet 100 mg PO TID PRN Pain 03/04/24 04/13/24 Unknown History citalopram 20 mg tablet 20 mg PO QAM 04/12/24 04/13/24 04/26/24 History phentermine 15 mg capsule 15 mg PO QAM 04/12/24 04/13/24 04/26/24 History calcium carbonate 600 mg-vitamin 1 tab PO QAM 04/13/24 04/13/24 04/26/24 History D3 5 mcg (200 unit) tablet cholecalciferol (vitamin D3) 25 25 mcg PO QAM 04/13/24 04/13/24 04/26/24 History mcg (1,000 unit) capsule (Vitamin D3) diclofenac sodium 75 mg 75 mg PO TID 04/13/24 04/13/24 04/20/24 History tablet,delayed release magnesium oxide 400 mg PO QAM 04/13/24 04/13/24 04/26/24 History pyridoxine (vitamin B6) 100 mg 100 mg PO QAM 04/13/24 04/13/24 04/26/24 History tablet (Vitamin B-6) Assessment and Plan Assessment Anesthesia Assessment: Chart Reviewed Final Anesthetic Review NPO: Yes ASA Class: III Final Preanesthetic Review: No Changes in Pt Med Stat, Meds/Allgs Chart Reviewed, Consent Obtained/Reviewed and Anes Risks/Benef Reviewed Patient Risk: Intermediate Procedure Risk: Intermediate Anesthetic Plan Anesthetic Plan: Spinal and Regional Block Disposition: Standard PACU
[2024-04-13 14:21] LABS: Hematocrit 31.5 % (37.0-47.0); Hemoglobin 9.5 g/dl (12.0-16.0); Mean Corpuscular HGB Conc 30.2 g/dl (31.0-35.0); Mean Corpuscular Hemoglobin 23.8 pg (27.0-33.0); Mean Corpuscular Volume 78.9 fL (80.0-98.0); Mean Platelet Volume 10.7 fL (9.4-12.3); Platelet Count 368 X10*3/uL (160-400); Red Blood Count 3.99 X10*6/uL (4.20-5.50); Red Cell Distribution Width 14.5 % (11.0-16.0); White Blood Count 10.1 X10*3/uL (4.8-10.8)
[2024-04-13 14:53] LABS: Anion Gap 17 (12-20); Blood Urea Nitrogen 21 mg/dL (9-16); Carbon Dioxide 24 mmol/L (22-29); Chloride 104 mmol/L (96-108); Creatinine Clr Calc Pharmacy 87.2; Estimated Glomerular Filt Rate > 60; Glucose Random 102 mg/dL (60-115); Potassium 3.9 mmol/L (3.3-5.1); Sodium 141 mmol/L (135-145)
[2024-04-13 15:23] LABS: MRSA Nasal PCR NEGATIVE (Negative); SA Nasal PCR NEGATIVE (Negative)
[2024-04-27] VITALS (11 sets, daily range): BP systolic 97–165; BP diastolic 52–93; PULSE 69–92; RESP 15–18; TEMP 36–36.7; O2SAT 95–96; BMI 46.1
--- NOTE | ~2024-04-27 | XR_ITS ---
EXAMINATION: XR KNEE, RIGHT CLINICAL INFORMATION: Right knee arthroplasty COMPARISON: Right knee radiograph from 07/08/2022 TECHNIQUE: Two views of the right knee. FINDINGS: Status post right knee arthroplasty. Orthopedic hardware is grossly intact. Postsurgical soft tissue air and skin elke along the supra patellar and infrapatellar region. No acute visible fracture or dislocation. Joint spaces and alignment are maintained. XR/XR knee RT 2V IMPRESSION: 1. Status post right knee arthroplasty. Orthopedic hardware is grossly intact. 2. Postsurgical soft tissue air and skin elke along the supra patellar and infrapatellar region. 3. No acute visible fracture or dislocation.
--- OUTSIDE RECORDS SUMMARY | 2024-04-27 06:17 | XMS_ITS | Continuity of Care Document ---
Author Organization [facility] ter Address [address] [place] [id number]- Care Team Providers Care Ordnance Truck Installation Mechanic Name Role Phone Macey Goodrich MD, Chantal Primary Care Phys ician [place] [facility] [place]/26[place]22 - 07/26/[address] [id number] Discharge Disposition: A-D/C Home Attending Physician: Alfred Bernabe MD Admitting Physician: Alfred Bernabe MD Referring Physician: Alfred Bernabe MD Allergies, Adverse Reactions, Alerts Substance Reaction Severity Status ciprofloxacin nausea Active doxycycline nausea Active morphine vomiting Active Vicodin nausea, vomiting Active Medications acetaminophen 325 mg oral tablet 650 mg, 2, tablet, By Mouth, Every 6 hours, PRN, # 24 tablet, Refills 0, Tot. Refills 0, Maintenance, Pain , Moderate, 06/27/22 9:18:00 EDT, Route to Pharmacy Electronically, [facility]/pharmacy #[id number], Partial fill upon patient request if the prescription is... Start Date: 06/27/22 Status: Ordered diclofenac sodium 75 mg oral delayed release tablet 1 tablet = 75 mg, By Mouth, 3 times a day, # 60 tablet, 0 Refills, Maintenance, 06/13/21 13:12:00 EDT, EC Tablet, Partial fill upon patient request if the prescription is for a schedule II opioid drug. Start Date: 06/13/21 Status: Ordered Estradiol = 0.5 mg, By Mouth, Daily, 0 Refills, Maintenance Start Date: 08/20/13 Status: Ordered FLUoxetine 20 mg oral capsule TAKE 2 CAPSULES BY MOUTH EVERY DAY Start Date: 06/03/21 Status: Ordered hydrochlorothiazide-triamterene 25 mg-37.5 mg oral tablet TAKE 1 TABLET BY MOUTH EVERY DAY Start Date: 06/09/21 Status: Ordered losartan 25 mg oral tablet TAKE 1 TABLET BY MOUTH EVERY DAY Start Date: 06/09/21 Status: Ordered Omeprazole By Mouth, Daily, 0 Refills, Maintenance, 06/21/16 15:56:34 Start Date: 06/21/16 Status: Ordered ondansetron 4 mg oral tablet, disintegrating 1 tablet = 4 mg, By Mouth, Every 8 hours, PRN as needed for nausea/vomiting, # 14 tablet, 0 Refills, Maintenance, 06/27/22 9:17:00 EDT, DIS Tablet, [facility]/pharmacy #[id number], Partial fill upon patient request if the prescription is for a schedule II opioid d... Start Date: 06/27/22 Status: Ordered pramipexole 0.125 mg oral tablet TAKE 2 TABLETS BY MOUTH 3 TIMES DAILY Start Date: 06/03/21 Status: Ordered Tramadol = 100 mg, By Mouth, 3 times a day, 0 Refills, Maintenance, 06/21/16 15:57:04 EDT Start Date: 06/21/16 Status: Ordered Tylenol 8 HR Arthritis Pain = 1,300 mg, By Mouth, Every 8 hours, 0 Refills, Maintenance, 12/06/20 8:35:00 EST, Partial fill upon patient request if the prescription is for a schedule II opioid drug. Start Date: 12/06/20 Status: Ordered Problem List Condition Effective Dates Status Health Status Inform ant Carpal tunnel syndrome(Confirmed) Active Depression(Confirmed) Active Acid reflux disease(Confirmed) Active Hypertension(Confirmed) Active Cervicalgia(Confirmed) Active Obesity(Confirmed) Active Osteoarthritis(Confirmed) Active Severe obesity(Confirmed) Active Sleep apnea(Confirmed) Active Vital Signs Most recent to oldest [Reference Range]: 1 2 Height 153 cm (07/26/22 8:04 AM) 153 cm (07/26/22 7:58 AM) Weight 113.6 kg (07/26/22 7:58 AM) Oxygen Saturation [94-100 %] 98 % (07/26/22 8:04 AM) Pulse Rate [55-90 bpm] 92 bpm *H* (07/26/22 8:04 AM) Blood Pressure [90-138/55-84 mm Hg] 179/ 96mm Hg *H* (07/26/22 8:04 AM) Respiratory Rate [16-30 br/min] 20 br/mi n (07/26/22 8:04 AM) Temperature [96.8-100.4 DegF] 97.9 DegF (07/26/22 8:04 AM) Mode of Delivery (Oxygen) Room air (07/26/22 8:04 AM) Blood pressure sites Arm, right (07/26/22 8:04 AM) Temperature Route Oral (07/26/22 8:04 AM) Dry Weight 113.6 kg (07/26/22 7:58 AM) Social History Social History Type Response Smoking Status Former smoker, quit more than 30 days ago entered on: 06/02/21 Sex Care Team Personnel Name: Chantal Mehta MD Address: [address] [place] [address]
--- OUTSIDE RECORDS SUMMARY | 2024-04-27 06:17 | XMS_ITS | Continuity of Care Document ---
Author Organization [facility] ter Address [address] [place] [address]- Care Team Providers Care Nailer Machine Name Role Phone Macey Goodrich MD, Chantal Primary Care Phys ician Encounter [facility] [place] Date(s): 06/02/21 - 06/13/[address] [address] Discharge Disposition: A-Transfer VNA/Home Health Attending Physician: Rickie NELSON, Loraine Song Admitting Physician: Brandon NELSON, Red Rabago Referring Physician: Not on Staff, Referring MD Allergies, Adverse Reactions, Alerts Substance Reaction Severity Status ciprofloxacin nausea Active doxycycline nausea Active Vicodin nausea, vomiting Active morphine vomiting Active Medications diclofenac sodium 75 mg oral delayed release [...] Status: Ordered losartan 25 mg oral tablet 25 mg, Tablet, By Mouth, 06/13/21 9:00:00 EDT Start Date: 06/13/21 Stop Date: 06/13/21 Status: Completed losartan 25 mg oral tablet TAKE 1 TABLET BY MOUTH EVERY DAY Start Date: 06/09/21 Status: Ordered magnesium oxide 400 mg oral tablet 1 tablet = 400 mg, By Mouth, 2 times a day, for 7 days, # 14 tablet, 0 Refills, Acute 06/20/21 14:41:00 EDT, 06/13/21 14:41:00 EDT, Tablet, [facility], Partial fill upon patient requestif the prescription is for a schedule II opioid alvina... Start Date: 06/13/21 Stop Date: 06/20/21 Status: Ordered Omeprazole By Mouth, Daily, 0 Refills, Maintenance, 06/21/16 15:56:34 Start Date: 06/21/16 Status: Ordered pramipexole 0.125 mg oral tablet TAKE 2 TABLETS BY MOUTH 3 TIMES DAILY Start Date: 06/03/21 Status: Ordered Tramadol = 100 mg, By Mouth, 3 times a day, 0 Refills, Maintenance, 06/21/16 15:57:04 EDT Start Date: 06/21/16 Status: Ordered Tylenol 325 mg oral tablet 975 mg, Tablet, By Mouth, 06/12/21 20:00:00 EDT Start Date: 06/12/21 Stop Date: 06/12/21 Status: Completed Tylenol 8 HR Arthritis Pain = 1,300 [...] Active Cervicalgia(Confirmed) Active Obesity(Confirmed) Active Osteoarthritis(Confirmed) Active Sleep apnea(Confirmed) Active Results Orders for Microbiology Reports Name Date Blood Culture 06/08/21 Blood Culture #2 06/08/21 Urine Culture 06/03/21 Microbiology Reports TEST:Blood Culture STATUS:Auth (Verified) BODY SITE: SOURCE:Blood COLLECTED DATE/TIME:06/08/21 2:08 PM Blood Culture SPECIMEN DESCRIPTION : BLOOD SPECIAL REQUESTS : NONE CULTURE : NO GROWTH 5 DAYS. REPORT STATUS : FINAL 06/13/2021 TEST:Blood Culture, Second Order STATUS:Auth (Verified) BODY SITE: SOURCE:Blood COLLECTED DATE/TIME:06/08/21 2:08 PM Blood Culture, Second Order SPECIMEN DESCRIPTION : BLOOD NO SITE SPECIAL REQUESTS : NONE CULTURE : NO GROWTH 5 DAYS. REPORT STATUS : FINAL 06/13/2021 TEST:Urine Culture STATUS:Auth (Verified) BODY SITE: SOURCE:KIDNEY COLLECTED DATE/TIME:06/02/21 11:58 PM Urine Culture SPECIMEN DESCRIPTION : KIDNEY URINE, LEFT SPECIAL REQUESTS : NONE CULTURE : >100,000 COL/ML KLEBSIELLA PNEUMONIAE REPORT STATUS : FINAL 06/05/2021 ORGANISM >100,000 COL/ML KLEBSIELLA PNEUMONIAE METHOD MIN. INHIB. CONC. (MCG/ML) AMPICILLIN RESISTANT AMPICILLIN/SULBACTAM SUSCEPTIBLE AMOXICILLIN/CLAVULAN SUSCEPTIBLE CEFAZOLIN SUSCEPTIBLE CEFEPIME SUSCEPTIBLE CEFTRIAXONE SUSCEPTIBLE CIPROFLOXACIN SUSCEPTIBLE ERTAPENEM SUSCEPTIBLE GENTAMICIN SUSCEPTIBLE LEVOFLOXACIN SUSCEPTIBLE MEROPENEM SUSCEPTIBLE NITROFURANTOIN INTERMEDIATE PIPERACILLIN/TAZOBAC SUSCEPTIBLE TRIMETH/SULFAMETHOX SUSCEPTIBLE TETRACYCLINE SUSCEPTIBLE Radiology Reports * Exam Date Time Procedure Performing Provider Status 06/03/21 1:49 PM Chest Portable Tracee Scruggs; Auth (Verified) Notes: (Chest Portable) Reason For Exam: Tube Placement RESULT: Chest Portable Chest Portable, AP semiupright at 1:12 PM. Reason: Tube Placement; Clinical Question(s): Tube Placement COMPARISON: 06/02/2021 FINDINGS: LINES AND TUBES: Right internal jugular venous catheter with the distal tip in the lower SVC. LUNGS AND PLEURA: Low lung volumes. Increasing densities in the lower lung zones bilaterally. No pleural effusion. No pneumothorax. HEART, MEDIASTINUM AND LARRY: Mild prominence of the cardiac silhouette. BONES AND SOFT TISSUES: No acute abnormality. IMPRESSION: 1. Right internal jugular venous catheter with the distal tip in the lower SVC. No pleural effusionor pneumothorax. 2. Increasing opacities in the lower lung zones bilaterally could be related to pulmonary edema or atypical infection. I have personally reviewed the images and I agree with this report. WSN: [id number] Ordering Physician: Flaquita Thomas Dictated By: Jesus Traylor DO Dictated Date/Time: 06/03/21 2:01 pm Reviewed By: Umberto Costa MD Signed By: Umberto Costa MD Signed Date/Time: 06/03/21 2:06 pm Transcribed By: KAN Transcribed Date/Time: 06/03/21 1:56 pm * Exam Date Time Procedure Performing Provider Status 06/02/21 10:50 PM Chest Portable PadminiNasra francisco; Au th (Verified) Notes: (Chest Portable) Reason For Exam: Shortness of Breath RESULT: Chest Portable Chest Portable Reason: Shortness of Breath; Clinical Question(s): Pulmonary Edema COMPARISON: 06/02/2021 FINDINGS: LINES AND TUBES: None. LUNGS AND PLEURA: Low lung volumes with mild basilar atelectasis. Lungs are otherwise clear with no consolidation. No pleural effusion. No pneumothorax. HEART, MEDIASTINUM AND LARRY: Heart is at the upper limits of normal for size. Normal upper mediastinal and hilar contour. BONES AND SOFT TISSUES: No acute abnormality. IMPRESSION: No acute abnormality. Study limited by low lung volumes. WSN: [id number] Ordering Physician: Jesus Bourgeois Dictated By: Haider Otero MD Dictated Date/Time: 06/02/21 11:23 p Reviewed By: Haider Otero MD Signed By: Haider Otero MD Signed Date/Time: 06/02/21 11:23 pm Transcribed By: KAN Transcribed Date/Time: 06/02/21 11:23 pm Vital Signs Most recent to oldest [Reference Range]: 1 2 3 Height 153 cm (06/11/21 10:18 PM) 153 cm (06/11/21 8:25 AM) 153 cm (06/08/21 4:00 PM) Weight 117 kg (06/05/21 9:30 PM) 112.5 kg (06/03/21 1:05 AM) Oxygen Saturation [94-100 %] 97 % (06/13/21 7:00 AM) 96 % (06/12/21 8:00 PM) 97 % (06/12/21 4:00 PM) Pulse Rate [55-90 bpm] 100 bpm *H* (06/13/21 7:00 AM) 84 bpm (06/12/21 8:00 PM) 72 bpm (06/12/21 4:00 PM) Blood Pressure [90-138/55-84 mm Hg] 146/85mm Hg *H* (06/13/21 8:12 AM) 146/85mm Hg *H* (06/13/21 7:00 AM) 150/73mm Hg *H* (06/12/21 8:00 PM) Respiratory Rate [16-30 br/min] 20 br/min (06/12/21 9:07 PM) 18 br/min (06/12/21 8:00 PM) 18 br/min (06/12/21 4:00 PM) Temperature [96.8-100.4 DegF] 98.3 DegF (06/13/21 7:00 AM) 98.0 DegF (06/12/21 8:00 PM) 98.1 DegF (06/12/21 4:00 PM) Liters per Minute 4 L/min (06/10/21 8:00 PM) 4 L/min (06/10/21 4:00 PM) 3 L/min (06/10/21 8:00 AM) Mode of Delivery (Oxygen) Room air (06/13/21 7:00 AM) Room air (06/12/21 8:00 PM) Room air (06/12/21 4:00 PM) Blood pressure sites Arm, right (06/13/21 7:00 AM) Arm, right (06/12/21 8:00 PM) Arm, right (06/12/21 4:00 PM) Temperature Route Oral (06/13/21 7:00 AM) Oral (06/12/21 8:00 PM) Oral (06/12/21 4:00 PM) Dry Weight 111.6 kg (06/08/21 4:00 PM) Weight Obtained Via Bed scale (06/05/21 9:30 PM) Bed scale (06/03/21 1:05 AM) Social History Social History Type Response Smoking Status Former smoker, quit more than 30 days ago entered on: 06/02/21 Sex
--- OUTSIDE RECORDS SUMMARY | 2024-04-27 06:17 | XMS_ITS | Continuity of Care Document ---
Author Organization [facility] ter Address [address] [place] [id number]- Care Team Providers Care Shale Planer Operator Name Role Phone Macey Goodrich MD, Chantal Primary Care Phys ician Encounter [facility] [place] Date(s): 07/09/21 - 07/09/[address] [address] Discharge Disposition: A-D/C Home Attending Physician: Alfred Bernabe MD Admitting Physician: Alfred Bernabe MD Referring Physician: Alfred Bernabe MD Allergies, Adverse Reactions, Alerts Substance Reaction Severity Status ciprofloxacin nausea Active doxycycline nausea Active morphine vomiting Active Vicodin nausea, vomiting Active Medications diclofenac sodium 75 mg [...] Active Osteoarthritis(Confirmed) Active Sleep apnea(Confirmed) Active Results Radiology Reports * Exam Date Time Procedure Performing Provider Status 07/09/21 10:07 AM C-Arm < 1 Hour Horacio Brian; Auth (V erified) Notes: (C-Arm < 1 Hour) Reason For Exam: Left Ureteral Stone, TT 10 min, FT 33.1 sec RESULT: C-Arm < 1 Hour Urethrocystography Retrograde, C-Arm < 1 Hour INDICATION: Left Ureteral Stone Fluoroscopy time: 33.1 sec Dose area product: 2.8 Gy x cm^2 COMPARISON: CT 06/08/2021 FINDINGS: Intraprocedural fluoroscopy support provided, without radiologist in attendance. 6 fluoroscopic images obtained, demonstrating replacement of percutaneous left- approach ureteral stent with a double-Jleft ureteral stent. See procedure note for details. IMPRESSION: As above. I have personally reviewed the images and I agree with this report. WSN: [id number] Ordering Physician: Alfred Bernabe Dictated By: Michele Shields DO Dictated Date/Time: 07/09/21 11:49 a Reviewed By: Andrea Whitmore MD Signed By: Andrea Whitmore MD Signed Date/Time: 07/09/21 11:54 am Transcribed By: KAN Transcribed Date/Time: 07/09/21 11:13 am * Exam Date Time Procedure Performing Provider Status 07/09/21 10:07 AM Urethrocystography Retrograde Horacio Brian; Auth (Verified) Notes: (Urethrocystography Retrograde) Reason For Exam: Left Ureteral Stone, TT 10 min, FT 33.1 sec RESULT: Urethrocystography Retrograde Urethrocystography Retrograde, C-Arm < 1 Hour INDICATION: Left Ureteral Stone Fluoroscopy time: 33.1 sec Dose area product: 2.8 Gy x cm^2 COMPARISON: CT 06/08/2021 FINDINGS: Intraprocedural fluoroscopy support provided, without radiologist in attendance. 6 fluoroscopic images obtained, demonstrating replacement of percutaneous left- approach ureteral stent with a double-Jleft ureteral stent. See procedure note for details. IMPRESSION: As above. I have personally reviewed the images and I agree with this report. WSN: [id number] Ordering Physician: Alfred Bernabe Dictated By: Michele Shields DO Dictated Date/Time: 07/09/21 11:49 a Reviewed By: Andrea Whitmore MD Signed By: Andrea Whitmore MD Signed Date/Time: 07/09/21 11:54 am Transcribed By: KAN Transcribed Date/Time: 07/09/21 11:13 am Vital Signs Most recent to oldest [Reference Range]: 1 2 3 Height 152.40 cm (07/09/21 8:58 AM) 152.40 cm (06/22/21 11:53 AM) Weight 109.09 kg (07/09/21 8:58 AM) 109.09 kg (06/22/21 11:53 AM) Oxygen Saturation [94-100 %] 95 % (07/09/21 10:45 AM) 95 % (07/09/21 10:30 AM) 97 % (07/09/21 10:15 AM) Pulse Rate [55-90 bpm] 100 bpm *H* (07/09/21 8:58 AM) Body Mass Index [18.5-24.99] 46.97 *>HHI* (07/09/21 8:58 AM) 46.97 *>HHI* (06/22/21 11:53 AM) Blood Pressure [90-138/55-84 mm Hg] 139/80mm Hg *H* (07/09/21 10:45 AM) 147/86mm Hg *H* (07/09/21 10:30 AM) 146/80mm Hg *H* (07/09/21 10:15 AM) Respiratory Rate [16-30 br/min] 23 br/min (07/09/21 10:45 AM) 17 br/min (07/09/21 10:30 AM) 18 br/min (07/09/21 10:15 AM) Temperature [96.8-100.4 DegF] 97.6 DegF (07/09/21 10:45 AM) 97.8 DegF (07/09/21 10:15 AM) 97.6 DegF (07/09/21 8:58 AM) Mode of Delivery (Oxygen) Room air (07/09/21 10:45 AM) Room air (07/09/21 10:30 AM) Room air (07/09/21 10:15 AM) Blood pressure sites Arm, left (07/09/21 10:45 AM) Arm, left (07/09/21 10:30 AM) Arm, left (07/09/21 10:15 AM) Temperature Route Temporal (07/09/21 10:45 AM) Temporal (07/09/21 10:15 AM) Temporal (07/09/21 8:58 AM) Dry Weight 105.5 kg (07/09/21 8:58 AM) 109.09 kg (06/22/21 11:53 AM) Weight Obtained Via Patient/family state d (06/22/21 11:53 AM) Dry Weight Obtained Via Patient/family s tated (06/22/21 11:53 AM) Social History Social History Type Response Smoking Status Former smoker, quit more than 30 days ago entered on: 06/02/21 Sex
--- OUTSIDE RECORDS SUMMARY | 2024-04-27 06:17 | XMS_ITS | Continuity of Care Document ---
Author Organization [facility] ter Address [address] [place] [address]- Care Team Providers Care Chief Engineer'S Helper Name Role Phone Macey Goodrich MD, Chantal Primary Care Phys ician [place] [facility] [place] - 12/01/[address] [id number] Discharge Disposition: A-D/C Home Attending Physician: Alfred Benrabe MD Admitting Physician: Alfred Bernabe MD Referring Physician: Alfred Bernabe MD Allergies, Adverse Reactions, Alerts Substance Reaction Severity Status ciprofloxacin nausea Active morphine vomiting Active Vicodin nausea, vomiting Active Immunizations Given and Recorded Vaccine Date Status Refusal Reason SARS-CoV-2 (COVID-19) mRNA-1273 vaccine 04/16/21 R ecorded SARS-CoV-2 (COVID-19) mRNA-1273 vaccine 03/19/21 R ecorded Medications diclofenac sodium 75 mg oral delayed release tablet 1 tablet = 75 mg, By Mouth, 3 times a day, # 60 tablet, 0 Refills, Maintenance, 06/13/21 13:12:00 EDT, EC Tablet, Partial fill upon patient request if the prescription is for a schedule II opioid drug. Start Date: 06/13/21 Status: Ordered Dilaudid Inj 0.5 mg, Injection, IV Push Slowly, Every 4 hours, PRN for Pain , Severe, Routine, 11/29/22 13:24:00EST Start Date: 11/29/22 Stop Date: 12/06/22 Status: Ordered Estradiol = 0.5 mg, By Mouth, Daily at bedtime, 0 Refills, Maintenance, 08/20/13 7:21:08 EDT Start Date: 08/20/13 Status: Ordered FLUoxetine 20 mg oral capsule 40 mg, 2, capsule, By Mouth, Daily in AM, TAKE 2 CAPSULES BY MOUTH EVERY DAY Start Date: 06/03/21 Status: Ordered hydrochlorothiazide-triamterene 25 mg-37.5 mg oral tablet 1, tablet, By Mouth, Daily in AM, TAKE 1 TABLET BY MOUTH EVERY DAY Start Date: 06/09/21 Status: Ordered losartan 25 mg oral tablet 25 mg, Tablet, By Mouth, 12/01/22 9:00:00 EST Start Date: 12/01/22 Stop Date: 12/01/22 Status: Completed losartan 25 mg oral tablet 1 tablet = 25 mg, By Mouth, Daily in AM, TAKE 1 TABLET BY MOUTH EVERY DAY Start Date: 06/09/21 Status: Ordered oxyCODONE 5 mg oral tablet 10 mg, Tablet, By Mouth, Every 4 hours, PRN for Pain , Severe, Routine, 11/30/22 13:00:00 EST Start Date: 11/30/22 Stop Date: 12/07/22 Status: Ordered pantoprazole 40 mg oral delayed release tablet 1 tablet = 40 mg, By Mouth, Daily in AM, 0 Refills, Maintenance, 11/27/22 11:02:00 EST Start Date: 11/27/22 Status: Ordered Tramadol = 100 mg, By Mouth, 3 times a day, 0 Refills, Maintenance, 06/21/16 15:57:04 EDT Start Date: 06/21/16 Status: Ordered Tylenol 8 HR Arthritis Pain By Mouth, Every 8 hours, 0 Refills, Maintenance, 12/06/20 8:35:00 EST, Partial fill upon patient request if the prescription is for a schedule II opioid drug. Start Date: 12/06/20 Status: Ordered Problem List Condition Confirmation Course Effective Dates Status H ealth Status Informant Carpal tunnel syndrome Confirmed Active Renal cell carcinoma of right kidney Confirmed Active Depression Confirmed Active Acid reflux disease Confirmed Active Hypertension Confirmed Active Cervicalgia Confirmed Active Obesity Confirmed Active Osteoarthritis Confirmed Active Severe obesity Confirmed Active Sleep apnea Confirmed Active Vital Signs Most recent to oldest [Reference Range]: 1 2 3 Height 152.4 cm (11/30/22 3:00 PM) 152.4 cm (11/30/22 1:00 PM) 152.4 cm (11/30/22 7:00 AM) Weight 113.6 kg (11/29/22 4:56 PM) 113.5 kg (11/29/22 7:11 AM) 113.5 kg (1/18/23 11:36 AM) Oxygen Saturation [94-100 %] 94 % (12/01/22 11:58 AM) 96 % (12/01/22 7:00 AM) 94 % (12/01/22 3:18 AM) Pulse Rate [55-90 bpm] 110 bpm *H* (12/01/22 11:58 AM) 113 bpm *H* (12/01/22 7:00 AM) 107 bpm *H* (12/01/22 3:18 AM) Body Mass Index [18.5-24.99 kg/m2] 48.91 kg/m2 *>HHI* (11/29/22 4:56 PM) 48.87 kg/m2 *>HHI* (11/29/22 7:11 AM) 48.87 kg/m2 *>HHI* (11/27/22 11:36 AM) Blood Pressure [90-138/55-84 mm Hg] 100/68mm Hg (12/01/22 11:58 AM) 125/74mm Hg (12/01/22 8:31 AM) 125/74mm Hg (12/01/22 7:00 AM) Respiratory Rate [16-30 br/min] 20 br/min (12/01/22 3:14 PM) 18 br/min (12/01/22 11:58 AM) 17 br/min (12/01/22 11:52 AM) Temperature [96.8-100.4 DegF] 98.6 DegF (12/01/22 11:58 AM) 98.5 DegF (12/01/22 7:00 AM) 97.2 DegF (12/01/22 3:18 AM) Liters per Minute 6 L/min (11/29/22 1:15 PM) 6 L/min (11/29/22 1:00 PM) Mode of Delivery (Oxygen) Room air (12/01/22 11:58 AM) Room air (12/01/22 7:00 AM) Room air (12/01/22 3:18 AM) Blood pressure sites Arm, left (12/01/22 11:58 AM) Arm, right (12/01/22 7:00 AM) Arm, left (12/01/22 3:18 AM) Temperature Route Oral (12/01/22 11:58 AM) Oral (12/01/22 7:00 AM) Oral (12/01/22 3:18 AM) Dry Weight 113.6 kg (11/29/22 4:56 PM) 109.5 kg (11/29/22 7:11 AM) Weight Obtained Via Patient/family state d (11/29/22 4:56 PM) Patient/family stated (11/27/22 11:36 AM) Dry Weight Obtained Via Patient/family s tated (11/29/22 4:56 PM) Social History Social History Type Response Smoking Status Former smoker, quit more than 30 days ago entered on: 06/02/21 Sex Hospital Progress note * Karen Marcus RN: PERFORM, SIGN, VERIFY Event Display: Progress Note Hospital Authored Date: Patient: TRACEE MARTIN Age: 62 years Sex: Female : 1960 Associated Diagnoses: None Author: Karen Marcus RN Findings Evaluation Patient discharged [id number] today. Discharge instructions reviewed and questions answered. IV from R hand removed without any difficulties and IV tape intact. Pt's daughter wheeled off the unit in a wheelchair. . * Alfred Bernabe MD: VERIFY, PERFORM, SIGN Event Display: Progress Note Hospital Authored Date: Patient: TRACEE MARTIN Age: 62 years Sex: Female : 1960 Associated Diagnoses: None Author: Alfred Bernabe MD LOS 2 days Review of Systems Review of systems is Pain Management: controlled. Oral Intake: solids. Constitutional: no chills, no fever. Respiratory. Cardiovascular: no chest pain. Genitourinary: voided. Physical Examination Vital Signs Vitals : VITALS 12/01/2022 11:58 EST Temperature 98.6 DegF Temperature Route Oral Pulse Rate 110 bpm H Respiratory Rate 18 br/min Systolic Blood Pressure 100 mm Hg Diastolic Blood Pressure 68 mm Hg Blood pressure sites Arm, left Pulse Pressure 32 mm Hg Oxygen Saturation 94 % Mode of Delivery (Oxygen) Room air . Physical exam Patient is: awake, alert. Abdomen/GI: Abdomen is (soft, with appropriate incisional tenderness, not distended, not tender). Results Review 7 Day Results Results Laboratory : LABORATORY 12/01/2022 1:12 EST WBC 15.1 k/mm3 H RBC 3.18 m/mm3 L Hgb 8.8 Gm/dL L Hct 27.2 % L MCV 85.5 femtoliters MCH 27.7 pg MCHC 32.4 g/dL L Platelet Count 253 k/mm3 RDW-SD 43.4 femtoliters MPV 11.0 femtoliters Nucleated RBC (Automated) 0.0 #/100 WBC'S Abs. NRBC 0.0 k/mm3 Sodium 136 mmol/L Potassium 3.3 mmol/L L Chloride 97 mmol/L L Bicarbonate Level 30 mmol/L H Anion Gap 9 BUN 5 mg/dL L Creatinine-Blood 0.6 mg/dL Estimated GFR Creatinine 103 ML/MIN/1.73 M2 Impression and Plan s/p robotic partial nephrectomy, doing well, passing gas, eating, pain controlled on PO pain meds, want to go home. Hb down a bit but at least partly dilutional as sodium down as well. Pt to be d/c ,take light activity, call if any issues, concerns * Ashley Salas RN: PERFORM, SIGN, VERIFY Event Display: Progress Note Hospital Authored Date: [id number] Patient: TRACEE MARTIN Age: 62 years Sex: Female : 1960 Associated Diagnoses: None Author: Ashley Salas RN Findings Evaluation Patient alert and oriented x 4. VSS. Reports 5-6/10 pain/ Dilaudid, oxycodone given with adequate relief. Lungs are clear to auscultation. Denies chest pain/SOB. Demonstrates 1250 on IS. + pedal pulses, + CMS, 1+ edema to LLE and 2+ edema to RLE. Denies numbness/tingling. Abdomen is soft, round andtender to the RUQ and RLQ. + flatus and + belching. Tolerating regular diet. Denies nausea/vomiting. Last bowel movement 11/30. Ambulates with standby assist and walker. Voiding adequate amounts of CYU. lap sites x 5 with + bruising noted. No active bleeding observed. Patient resting comfortably in chair with call rod within reach.. Discharge Information Case Management Discharge Plan : Case Management Discharge Plan Data 12/01/2022 15:01 EST Discharge Level of Care at Discharge Home/Retirement/Foster Care Pulmonary Rehab Discharge : Pulmonary Rehab Discharge Status 11/30/2022 1:25 EST CPAP/BiPAP Mask Size Medium Note * Karen Marcus RN: PERFORM Event Display: Discharge/Transfer Note Hospital Authored Date: [id number] Nursing Discharge Note Entered On: 12/01/2022 15:02 EST Performed On: 12/01/2022 15:01 EST by Karen Marcus RN Nursing Discharge Note 2 Discharge Time : 12/01/2022 15:25 EST Karen Marcus RN - 12/01/2022 15:23 EST Discharge Level of Care at Discharge : Home/Retirement/Foster Care Patient Left Unit Via : Wheelchair Patient Accompanied Off Unit with : Responsible adult DC Instructions Provided & Signed by Pt : Yes Patient Understands D/C Instructions : Yes Patient Instructions Discharge Signed : Yes Did Pt have Specialty Bed or Wound Vac : No Karen Marcus RN - 12/01/2022 15:01 EST * Karen Marcus RN: PERFORM Event Display: Patient Education/Instruction Authored Date: [id number] Inpatient Adult Discharge Instructions [place] [id number] Name: TRACEE MARTIN : 1960 Visit: 11/29/2022 05:17:00 Current Date: 12/01/2022 15:03 Account: [id number] Inpatient Adult Discharge Instructions We would like to thank you for allowing us to assist you with your healthcare needs. The following includes patient education materials and information regarding your injury/illness. Our entire staffstrives to provide an excellent experience for our patients and their families. PLEASE ENSURE YOU FOLLOW-UP PER THE INSTRUCTIONS BELOW! ?? YOUR OPINION IS IMPORTANT TO US! Please complete the survey you may receive by mail or email. Your feedback will be used to make improvements to the healthcare experiences of our patients and their families. Surveys are administered by [employer] ?? If further treatment with your primary care physician or another doctor is recommended, it is important for you to keep the appointment. Call your primary care physician or return to the Emergency Department immediately if your condition worsens, fails to improve, or new symptoms develop. If you need to find a doctor, you can call [facility] for a referral at [phone] or toll free at [phone]) or log in to [email or web address].. ?? You can view and manage your care through the patient portal or by using a health care mook of your choosing. [employer] is a website that allows you to securely view your medical information including your hospital discharge summary, office visit summaries, medications and follow-up visits. You can also request appointments, renew medications, and request access to your medical information using a health care mook of your choosing, or just ask a question. You can enroll at [email or web address] or register during your next office visit. You have been discharged from [facility], Patient Care Unit: SW6. If you have any questions regarding these instructions after you leave, please call us and we will be happy to assist you. [facility] Your Care Team Attending Physician Alfred Bernabe MD Consulting Providers Juan Carlos Edwards DO; Alfred Bernabe MD Discharging Providers Alfred Bernabe MD Reason for Admission MALIGNET NAIL PLASMA Your Diagnosis Renal cell carcinoma of right kidney Tests Performed Below is a partial list of the tests performed during your hospitalization. You may have had other tests and procedures not included in this list. Please discuss all test results with your provider. BUN CBC CBC w/ Differential Creatinine Electrolytes Type and Screen Primary Care Provider Chantal Mehta MD Advance Directive Health Care Proxy on File Yes - Health Care Proxy No qualifying data available. Discharge Vitals Temperature: 98.6 DegF Height: 152.4 cm Pulse Rate:??110 bpm??High Weight: 113.6 kg Respiratory Rate: 18 br/min Body Mass Index:??48.91 kg/m2??Critical Systolic Blood Pressure: 100 mm Hg Body surface area: 2.19 Diastolic Blood Pressure: 68 mm Hg ?? Oxygen Saturation: 94 % ?? Studies Pending All tests and labs ordered during this hospital stay have been completed unless listed below. Please discuss all pending results with your provider listed above in these instructions. ?? CBC COVID-19 (2019 Novel Coronavirus) PCR Pathology Tissue Request () RBCs for Surgery RBCs on Hold What to do next Instructions From Your Doctor Discharge Orders Discharge Medications TRACEE MARTIN :1960 Visit Date:11/29/2022 Medications: Please continue your medications until treatment is completed or stopped by your provider. Medications not listed below should be discontinued. Discuss any questions related to medications with your provider. What How Much When Instructions Next Dose Unchanged Acetaminophen (Tylenol 8 HR Arthritis Pain) Oral Every 8 hours As prescribed Unchanged Diclofenac (diclofenac sodium 75 mg oral delayed release tablet) 1 tab(s) Oral 3 times a day As prescribed Unchanged Estradiol 0.5 Milligram Oral Daily at Bedtime As prescribed Unchanged Fluoxetine (FLUoxetine 20 mg oral capsule) 2 capsule Oral Daily in the morning TAKE 2 CAPSULES BY MOUTH EVERY DAY ?? As prescribed Unchanged Hydrochlorothiazide/ Triamterene (hydrochlorothiazide-triamterene 25 mg-37.5 mg oral tablet) 1 tab(s) Oral Daily in the morning TAKE 1 TABLET BY MOUTH EVERY DAY ?? As prescribed Unchanged Losartan (losartan 25 mg oral tablet) 1 tab(s) Oral Daily in the morning TAKE 1 TABLET BY MOUTH EVERY DAY ?? As prescribed Unchanged Pantoprazole (pantoprazole 40 mg oral delayed release tablet) 1 tab(s) Oral Daily in the morning As prescribed Unchanged Tramadol 100 Milligram Oral 3 times a day As prescribed Test Results Below is a partial list of the most recent Laboratory test results done prior to this discharge. You may have had other tests and procedures not included in this list. Please discuss all test resultswith your provider. RBC Available - RE (11/29/2022) RBC Unit ID - [id number] (11/29/2022) BUN (12/01/2022) ???BUN - 5 mg/dL CBC (12/01/2022) ???WBC - 15.1 k/mm3???RBC - 3.18 m/mm3???Hgb - 8.8 Gm/dL???Hct - 27.2 %???MCV - 85.5 femtoliters???MCH - 27.7 pg???MCHC - 32.4 g/dL???Platelet Count - 253 k/mm3???RDW-SD - 43.4 femtoliters???MPV - 11.0 femtoliters???Nucleated RBC (Automated) - 0.0 #/100 WBC'S???Abs. NRBC - 0.0 k/mm3 CBC w/ Differential (11/30/2022) ???WBC - 12.9 k/mm3???RBC - 3.54 m/mm3???Hgb - 9.7 Gm/dL???Hct - 30.6 %???MCV - 86.4 femtoliters???MCH - 27.4 pg???MCHC - 31.7 g/dL???Platelet Count - 282 k/mm3???RDW-SD - 43.2 femtoliters???MPV - 11.0 femtoliters???Nucleated RBC (Automated) - 0.0 #/100 WBC'S???Abs. NRBC - 0.0 k/mm3???Abs. Neut - 10.0 k/mm3???Abs. Lymph - 1.6 k/mm3???Abs. Allen - 1.3 k/mm3???Abs. Eo - 0.0 k/mm3???Abs. Baso - 0.0 k/mm3???Neut % - 77.0 %???Lymph % - 12.5 %???Allen % - 9.8 %???Eos % - 0.0 %???Baso % - 0.2 %???Imm Gran - 0.5 %???Abs. Imm Gran - 0.1 k/mm3 Creatinine (12/01/2022) ???Creatinine-Blood - 0.6 mg/dL???Estimated GFR Creatinine - 103 ML/MIN/1.73 M2 Electrolytes (12/01/2022) ???Sodium - 136 mmol/L???Potassium - 3.3 mmol/L???Chloride - 97 mmol/L???Bicarbonate Level - 30 mmol/L???Anion Gap - 9 Type and Screen (11/29/2022) ???Blood Type - O Negative???Antibody Screen - Negative Allergies (NKA means No Known Allergies) Vicodin??(nausea, vomiting) ciprofloxacin??(nausea) morphine??(vomiting) Problems Active Problems??(10) Acid reflux disease?? Carpal tunnel syndrome?? Cervicalgia?? Depression?? Hypertension?? Obesity?? Osteoarthritis?? Renal cell carcinoma of right kidney?? Severe obesity?? Sleep apnea?? Education Materials Below is the list of Educational Leaflet Providered with your Discharge Instructions. Valuables and Belongings I fully understand and agree that [facility] accepts no responsibility for all my personal property including clothing, toilet articles, radios, jewelry, dentures, hearing aids, rings, money, or any other property that is in my possession or is brought to me after admission. I understand certain valuables may be placed in a hospital safe for a short period of time. I understand that the hospital is not liable for loss or damage due to accident, fire, or other natural occurrence while said property is in the safe. I accept full responsibility for any personal property that I keep with me, and will not hold the hospital responsible in case of loss or disappearance. I acknowledge that i have been encouraged to send valuables and belongings home. ?? Review of Valuable and Belonging List: With patient Date for Pt to Sign Valuables/Belongings: 12/01/22 15:02:00 ?? Other Discharge Information ? Case Management Discharge Plan?? Discharge Plan?? Discharge Level of Care at Discharge: Home/Retirement/Foster Care ?? Pulmonary Rehab Status?? Pulmonary Rehab Discharge Status?? CPAP/BiPAP Mask Size: Medium Respiratory Rate: 18 br/min ? Common Emergency Awareness Tips IS IT A STROKE? Act FAST and Check for these signs: FACE Does the face look uneven? ARM Does one arm drift down? SPEECH Does their speech sound strange? TIME Call at any sign of stroke ?? Heart Attack Signs Chest discomfort: Most heart attacks involve discomfort in the center of the chest and lasts more than a few minutes, or goes away and comes back. It can feel like uncomfortable pressure, squeezing, fullness or pain. Discomfort in upper body: Symptoms can include pain or discomfort in one or both arms, back, neck, jaw or stomach. Shortness of breath: With or without discomfort. Other signs: Breaking out in a cold sweat, nausea, or lightheaded. Remember, MINUTES DO MATTER. If you experience any of these heart attack warning signs, call to get immediate medical attention! ?? Smoking can increase your chances of developing chronic health problems and can cause harmful effects to other family members in your house. If you smoke, you are strongly encouraged to quit. Please call [facility] at [phone] or [phone]) or log in to [email or web address] for referrals to smoking cessation programs. ?? The National Suicide Prevention Hotline is available 02/06 if you or someone you know needs to find a reason to keep living. By calling 4-043-069-[employer] (8944) you'll be connected to a skilled, trained counselor at a crisis center in your area. INPATIENT DISCHARGE INSTRUCTIONS SIGNATURE PAGE VERONICA, TRACEE Location:[facility] Registration Date and Time:11/29/2022 05:17 EST Primary Care Physician: Macey Goodrich MD , [facility], I TRACEE MARTIN, have received the above patient education materials/instructions and have verbalized understanding. If ambulance or transport services are being used I further acknowledge being given a choice of service. ?? If you need to contact me, please call me at this number: . Patient/Application Support Developer Name: Patient/Application Support Developer Signature: Relationship to Patient: Witness Name/Signature: Date: Patient Care team information Care Team Personnel Name: Salomón Fernandez RN Position: S RN Member Role: Primary Care Nurse Name: Ishmael Hong RN Position: S RN Member Role: Primary Care Nurse Name: Chantal Mehta MD Position: Reference Physician Member Role: PCP Address: Address: [address] [place] [address] [facility] [place], [place] [address] Name: Shilpi Schmitt RN Position: S RN Member Role: Primary Care Nurse Name: Ashley Salas RN Position: S RN Member Role: Primary Care Nurse Name: Yasmin Jacobs RN Position: S RN Member Role: Primary Care Nurse Name: Benjamín Rowley RN Position: S RN Member Role: Primary Care Nurse Care Team Related Persons Name: JULIET MARTIN Address: [address] [place] [address] Name: ROSLYN WEBER Address: home [address] [place] [address]
--- OUTSIDE RECORDS SUMMARY | 2024-04-27 06:17 | XMS_ITS | Continuity of Care Document ---
Author Organization [facility] ter Address [address] [place] [address]- Care Team Providers Care Tire Manager Name Role Phone Macey Goodrich MD, Chantal Primary Care Phys ician Encounter [facility] Date(s): 05/12/23 - 05/12/[address] [address] Discharge Disposition: A-D/C Home Attending Physician: Cele CARRENO MD (Surgeon), Candi Admitting Physician: Cele CARRENO MD (Surgeon), Candi Referring Physician: Cele CARRENO MD (Surgeon), Candi Allergies, Adverse Reactions, Alerts Substance Reaction Severity [...] mg, 2, capsule, By Mouth, Daily in AM Start Date: 06/03/21 Status: Ordered hydrochlorothiazide-triamterene 25 mg-37.5 mg oral tablet 1, tablet, By Mouth, Daily in AM Start Date: 06/09/21 Status: Ordered ibuprofen 600 mg oral tablet 600 mg, 1, tablet, By Mouth, 3 times a day, for 10 days, # 30 tablet, Refills 0, Tot. Refills 0, Acute 05/22/23 14:42:00 EDT, 05/12/23 14:42:00 EDT, Route to Pharmacy Electronically, [facility]/pharmacy #[id number], Partial fill upon patient request if the prescri... Start Date: 05/12/23 Stop Date: 05/22/23 Status: Ordered losartan 25 mg oral tablet 1 tablet = 25 mg, By Mouth, Daily in AM, TAKE 1 TABLET BY MOUTH EVERY DAY Start Date: 06/09/21 Status: Ordered oxyCODONE 5 mg oral capsule 1 capsule = 5 mg, By Mouth, Every 6 hours, PRN as needed for pain, for 3 days, # 12 capsule, 0 Refills, Acute 05/15/23 14:41:00 EDT, 05/12/23 14:41:00 EDT, Capsule, [facility]/pharmacy #[id number], Partial fill upon patient request if the prescription is for a landon... Start Date: 05/12/23 Stop Date: 05/15/23 Status: Ordered pantoprazole 40 mg oral delayed release tablet 1 tablet = 40 mg, By Mouth, Daily in AM, 0 Refills, Maintenance, 11/27/22 11:02:00 EST Start Date: 11/27/22 Status: Ordered Tramadol = 100 mg, By Mouth, 3 times a day, 0 Refills, Maintenance, 06/21/16 15:57:04 EDT Start Date: 06/21/16 Status: Ordered Tylenol 8 Hour 650 mg oral tablet, extended release 2 tablet = 1,300 mg, By Mouth, Every 8 hours, PRN as needed for pain, for 10 days, # 50 tablet, 0 Refills, Acute 05/22/23 14:43:00 EDT, 05/12/23 14:43:00 EDT, ER Tablet, [facility]/pharmacy #[id number], Partial fill upon patient request if the prescription is for... Start Date: 05/12/23 Stop Date: 05/22/23 Status: Ordered Tylenol 8 HR Arthritis Pain [...] oldest [Reference Range]: 1 2 3 Height 152.8 cm (05/12/23 1:14 PM) 152.8 cm (05/09/23 10:34 AM) Weight 106.7 kg (05/12/23 1:14 PM) Oxygen Saturation [94-100 %] 96 % (05/12/23 5:00 PM) 93 % *L* (05/12/23 4:30 PM) 92 % *L* (05/12/23 4:00 PM) Pulse Rate [55-90 bpm] 85 bpm (05/12/23 1:14 PM) Body Mass Index [18.5-24.99 kg/m2] 45.7 kg/m2 *>HHI* (05/12/23 1:14 PM) Blood Pressure [90-138/55-84 mm Hg] 167/93mm Hg *H* (05/12/23 5:00 PM) 163/83mm Hg *H* (05/12/23 4:30 PM) 162/86mm Hg *H* (05/12/23 4:00 PM) Respiratory Rate [16-30 br/min] 18 br/min (05/12/23 5:00 PM) 16 br/min (05/12/23 4:30 PM) 24 br/min (05/12/23 4:00 PM) Temperature [96.8-100.4 DegF] 98.5 DegF (05/12/23 5:00 PM) 98.7 DegF (05/12/23 2:50 PM) 97.7 DegF (05/12/23 1:14 PM) Liters per Minute 6 L/min (05/12/23 2:50 PM) Mode of Delivery (Oxygen) Room air (05/12/23 3:15 PM) Simple face mask (05/12/23 2:50 PM) Room air (05/12/23 1:14 PM) Blood pressure sites Arm, right (05/12/23 2:50 PM) Arm, right (05/12/23 1:14 PM) Temperature Route Temporal (05/12/23 5:00 PM) Temporal (05/12/23 2:50 PM) Temporal (05/12/23 1:14 PM) Dry Weight 106.7 kg (05/12/23 1:14 PM) 108.3 kg (05/09/23 10:34 AM) Weight Obtained Via Standing scale (05/12/23 1:14 PM) Dry Weight Obtained Via Standing scale (05/12/23 1:14 PM) Social History Social History Type Response Smoking Status Former smoker, quit more than 30 days ago entered on: 06/02/21 Sex Implantable Device List Procedure Provider Procedure Date Device Type Site Repair Hernia Incisional Laparoscopic Cele III (Surgeon), [place]ritt 05/12/23 Unknown Abdomen Device Identifier Serial Number Lot or Batch Number Manufacturing Date Expiration Date Distinct Identification Code MRI Safety Implantable Status Assigning Authority [id number] Unknown [id number] Unknown 11/06/24 Unknown Unknown Active GS1 Procedure Provider Procedure Date Device Type Site Repair Hernia Incisional Laparoscopic Cele III (Surgeon), Burritt 05/12/23 Unknown Abdomen Device Identifier Serial Number Lot or Batch Number Manufacturing Date Expiration Date Distinct Identification Code MRI Safety Implantable Status Assigning Authority [id number] Unknown [id number] Unknown 09/06/24 Unknown Unknown Active GS1 Procedure Provider Procedure Date Device Type Site Repair Hernia Incisional Laparoscopic Cele III (Surgeon), Burritt 05/12/23 Unknown Abdomen Device Identifier Serial Number Lot or Batch Number Manufacturing Date Expiration Date Distinct Identification Code MRI Safety Implantable Status Assigning Authority [id number] Unknown [id number] Unknown 08/07/24 Unknown Unknown Active GS1 History and physical note * Event Display: History and Physical Hospital Authored Date: Note * Tyesha Arciniega RN: PERFORM Event Display: Patient Education/Instruction Authored Date: [id number] Inpatient Adult Discharge Instructions [address] [address] Name: TRACEE MARTIN : 1960 Visit: 05/12/2023 12:44:00 Current Date: 05/12/2023 15:44 Account: [id number] Inpatient Adult Discharge Instructions We would like [...] and their families. Surveys are administered by [employer] ?? If further treatment with your primary care physician or another doctor is recommended, it is important for you to keep the appointment. Call your primary care physician or return to the Emergency Department immediately if your condition worsens, fails to improve, or new symptoms develop. If you need to find a doctor, you can call [facility] for a referral at [phone] or toll free at [phone]) or log in to [email or web address] ?? You can view and manage your care through the patient portal or by using a health care mook of your choosing. [employer] is a website that allows you to securely view your medical information including your hospital discharge summary, office visit summaries, medications and follow-up visits. You can also request appointments, renew medications, and request access to your medical information using a health care mook of your choosing, or just ask a question. You can enroll at [email or web address] or register during your next office visit. You have been discharged from [facility], Patient Care Unit: [facility]. If you have any questions regarding these instructions after you leave, please call us and we will be happy to assist you. [facility] Your Care Team Attending Physician Cele CARRENO MD (Surgeon), Candi Discharging Providers Jagdish Vidal MD Reason for Admission INCISIONAL HERNIA [id number] Tests Performed Below is a partial list of the tests performed during your hospitalization. You may have had other tests and procedures not included in this list. Please discuss all test results with your provider. Primary Care Provider Chantal Mehta MD Advance Directive Health Care Proxy on File Yes - Health Care Proxy Discharge Vitals Temperature: 98.7 DegF Height: 152.8 cm Pulse Rate: 85 bpm Weight: 106.7 kg Respiratory Rate: 16 br/min Body Mass Index:??45.7 kg/m2??Critical Systolic Blood Pressure:??169 mm Hg??High Body surface area: 2.13 Diastolic Blood Pressure:??90 mm Hg??High ?? Oxygen Saturation:??92 %??Low ?? Studies Pending All tests and labs ordered during this hospital stay have been completed unless listed below. Please discuss all pending results with your provider listed above in these instructions. ?? No incomplete studies found What to do next Instructions From Your Doctor Please take Band-Aids down on 05/14. Please leave Steris strips in place until they fall out on their own in 7-10 days. Take Tylenol and ibuprofen around the clock. You have a prescription for oxycodone for severe breakthrough pain. Discharge Orders You Need to Schedule the Following Appointments Follow Up with??Cele CARRENO MD (Surgeon), Candi When:??Within 2 to 3 weeks Where: [address] [place] [address] [place] [address]- Discharge Medications TRACEE MARTIN :1960 Visit Date:05/12/2023 Medications: Please continue your medications until treatment is completed or stopped by your provider. Medications not listed below should be discontinued. Discuss any questions related to medications with your provider. What How Much When Instructions Next Dose New Ibuprofen (ibuprofen 600 mg oral tablet) 1 tab(s) Oral 3 times a day Duration: 10 Days Pickup at [facility]/pharmacy #[id number] New Oxycodone (oxyCODONE 5 mg oral capsule) 1 capsule Oral Every 6 hours as needed for as needed for pain Duration: 3 Days Pickup at [facility]/pharmacy #[id number] Changed Acetaminophen (Tylenol 8 Hour 650 mg oral tablet, extended release) 2 tab(s) Oral Every 8 hours as needed for as needed for pain Duration: 10 Days Pickup at [facility]/pharmacy #[id number] Changed Acetaminophen (Tylenol 8 HR Arthritis Pain) Oral Every 8 hours Unchanged Diclofenac (diclofenac sodium 75 mg oral delayed release tablet) 1 tab(s) Oral 3 times a day Unchanged Estradiol 0.5 Milligram Oral Daily at Bedtime Unchanged Fluoxetine (FLUoxetine 20 mg oral capsule) 2 capsule Oral Daily in the morning Unchanged Hydrochlorothiazide/ Triamterene (hydrochlorothiazide-triamterene 25 mg-37.5 mg oral tablet) 1 tab(s) Oral Daily in the morning Unchanged Losartan (losartan 25 mg oral tablet) 1 tab(s) Oral Daily in the morning TAKE 1 TABLET BY MOUTH EVERY DAY ?? Unchanged Pantoprazole (pantoprazole 40 mg oral delayed release tablet) 1 tab(s) Oral Daily in the morning Unchanged Tramadol 100 Milligram Oral 3 times a day Pharmacy Information [facility]/pharmacy #[id number]: [address] [place], [place] [id number] [phone] Test Results Below is a partial list of the most recent Laboratory test results done prior to this discharge. You may have had other tests and procedures not included in this list. Please discuss all test resultswith your provider. Allergies (NKA means No Known Allergies) Vicodin??(nausea, vomiting) ciprofloxacin??(nausea) morphine??(vomiting) Problems Active Problems??(10) Acid reflux disease?? Carpal tunnel syndrome?? Cervicalgia?? Depression?? Hypertension?? Obesity?? Osteoarthritis?? Renal cell carcinoma of right kidney?? Severe obesity?? Sleep apnea?? Education Materials Below is the list of Educational Leaflet Providered with your Discharge Instructions. Anesthesia: General Anesthesia?? After Hernia Surgery?? Valuables and Belongings I fully understand and agree that [facility] accepts no responsibility for all my [...] patient Date for Pt to Sign Valuables/Belongings: 05/12/23 13:14:00 ?? Valuables & Belongings ?? Clothes Electronic devices Jewelry Monetary Items Personal devices Miscellaneous Medications (Valuables) Valuables at Bedside Pants, Shirt, Shoes, Undergarments ? Glasses ? Valuables Sent Home ? Valuables Sent to Security ? Other Discharge Information ? Pulmonary Rehab Status?? Pulmonary Rehab Discharge Status?? Respiratory Rate: 16 br/min ? Common Emergency Awareness Tips IS [...] are strongly encouraged to quit. Please call [facility] at [phone] or [phone] ([phone]) or log in to [email or web address] for referrals to smoking cessation programs. ?? 468 Suicide & Crisis Lifeline is available 02/06 if you or someone you know needs to find a reason to keep living. By calling 819 you'll be connected to a skilled, trained counselor at a crisis center in your area. INPATIENT DISCHARGE INSTRUCTIONS SIGNATURE MAXIM TRACEE MARTIN Location:[facility] Registration Date and Time:05/12/2023 12:44 EDT Primary Care Physician: Chantal Mehta MD, Attending Physician: Cele CARRENO MD (Surgeon), Candi, TRACEE STEPHENSON, have received the above patient education materials/instructions and have verbalized understanding. If ambulance or transport services are being used I further acknowledge being given a choice of service. ?? If you need to contact me, please call me at this number: . Patient/Repair Department Manager Name: Patient/Repair Department Manager Signature: Relationship to Patient: Witness Name/Signature: Date: * Tyesha Arciniega RN: PERFORM Event Display: Patient Education Leaflets Authored Date: [id number] Anesthesia: General Anesthesia ?? Anesthesia: General Anesthesia You???re due to have surgery. During surgery, you???ll be given medicine called anesthesia or anesthetic. This will keep you comfortable and pain-free. Your??anesthesia provider??will use general anesthesia . You are watched continuously during your procedure by your anesthesia provider. What is general anesthesia? General anesthesia puts you into a state like deep sleep. It goes into the bloodstream (IV anesthetics), into the lungs (gas anesthetics), or both. You feel nothing during the procedure. You won't remember it. During the procedure, the anesthesia provider watches you continuously. They check your heart rate and rhythm, blood pressure, breathing, and blood oxygen. ??? IV anesthetics. IV anesthetics are given through an IV (intravenous) line in your arm. They???re often given first. This is so you're asleep before a gas anesthetic is started. Some kinds of IV anesthetics ease pain. Others relaxyou. Your healthcare provider will decide which kind is best in your case. ??? Gas anesthetics. Gas anesthetics are breathed into the lungs. They're often used to keep you asleep. They can be given through a face mask. Or they can be given through a tube placed in your voice box (larynx) or breathing tube (trachea). o Face mask. Your anesthesia provider will most likely place the face mask over your nose and mouth while you???re still awake. You???ll breathe oxygen through the mask as your IV anesthetic is started. Gas anesthetic may be added through the mask. o Tube in the larynx or trachea.The tube will be inserted into your throat after you???re asleep. ?? Anesthesia tools and medicines You will likely have: ??? IV anesthetics. These are put into an IV line into your bloodstream. ??? Gas anesthetics.??You breathe these??anesthetics??into your lungs. Then they pass into your bloodstream. ??? Pulse oximeter. This is a small clip that's attached to??the end of your finger. It measures your blood oxygen level. ??? Electrocardiography leads (electrodes). ??These are small sticky padsthat are placed??on your chest. They record your heart rate and rhythm. ??? Blood pressure cuff. This reads your blood pressure. ?? Risks and possible complications General anesthesia has some risks. These include: ??? Breathing problems ??? Upset stomach (nausea)and vomiting ??? Sore throat or hoarseness (usually temporary) ??? Allergic reaction to the anesthetic ??? Irregular heartbeat (rare) ??? Cardiac arrest (rare) ?? Anesthesia safety ??? Follow any directions you're given for not eating or drinking before your procedure. ??? Tell your healthcare provider knows what medicines??you take. This includes prescriptionand cpdu-ldb-[id number] medicines. It includes vitamins, herbs, and other supplements. You'll be askedwhen those were last taken. ??? Have an adult family member or friend drive you home after the procedure. ??? For the first 24 hours after your surgery: o Don't drive or use heavy equipment. o Don't make important decisions or sign legal documents. If important decisions or signing legal documents is necessary during the first 24 hours after surgery, have a trusted family member or spouse act on your behalf. o Don't drink alcohol. o Have??a responsible adult??stay with you.??They can watch for problems and help keep you safe. ?? Last Reviewed Date: 2021 ?? [employer]. All rights reserved. This information is not intended as a substitute for professional medical care. Always follow your healthcare professional's instructions. ?? * Adam Merrill RN, Tyesha: PERFORM Event Display: Patient Education Leaflets Authored Date: [id number] After Hernia Surgery ?? [address] After Hernia Surgery You can often go home the same day as surgery. If you had??surgery to fix a??ventral or incisional hernia, you may need to stay in the hospital overnight.??To speed healing, take an active role in your recovery. These tips can help. Reducing swelling Early on, the area around your incision may be swollen, bruised, and sore. To reduce swelling, apply an ice pack to the area 3 to 5??times a day. Keep it there for??15 to 20 minutes at a time. To make an ice pack, put ice cubes in a plastic bag that seals at the top. Wrap the bag in a thin towel orcloth before using it. Don???t put ice or an ice pack directly on the skin. ?? Managing pain Take any prescribed pain medicines as told. Some pain medicines can cause constipation. So your??healthcare provider??may also tell you to take a laxative or stool softener. A bowel regimen is important because it keeps you from straining after your hernia repair. Placing a pillow over your incision if coughing or sneezing can decrease pain too. ?? Returning to normal You can get back to your normal routine as soon as you feel able, unless your healthcare provider gives you other instructions. Just take it easy and stick to these guidelines: ??? Take short walks to improve circulation. ??? Don't do any heavy lifting for at least 2 weeks and possibly longer, depending on your repair. ??? Stay out of baths, hot tubs, and swimming pools for at least 1 week to protect your incisions. You can likely take a shower sooner than that. ??? Ask your??provider??when youcan drive and go back to work. ??? You can have sex again when you feel ready. ?? Follow-up care Be sure to keep all follow-up visits with your??healthcare provider. These make sure you???re healing well. During visits, your stitches, elke, or bandage may be removed. ?? When to call your healthcare provider Call your??healthcare provider??if you have any of these: ??? A large amount of swelling or bruising (some testicular swelling and bruising is normal) ??? Fever of 100.4??F??(38??C) or higher, or as advised by your provider ??? Chills ??? Pain, redness, bleeding, or fluid from the incision that gets worse ??? Trouble peeing ??? Constipation ??? Vomiting ?? Last Reviewed Date: 2022 ?? 3305-6048 [employer]. All rights reserved. This information is not intended as a substitute for professional medical care. Always follow your healthcare professional's instructions. ?? Patient Care team information Care Team Personnel Name: Salomón Fernandez RN Position: [facility] RN Member Role: Primary Care Nurse Name: Ishmael Hong RN Position: [facility] RN Member Role: Primary Care Nurse Name: Chantal Mehta MD Position: Reference Physician Member Role: PCP Address: Address: [address] [place] [id number] Name: Shilpi Schmitt RN Position: [facility] RN Member Role: Primary Care Nurse Name: Ashley Salas RN Position: [facility] RN Member Role: Primary Care Nurse Name: Yasmin Jacobs RN Position: S RN Member Role: Primary Care Nurse Name: Benjamín Rowley RN Position: [facility] RN Member Role: Primary Care Nurse Care Team Related Persons Name: JULIET MARTIN Address: home [address] [place] [address] Name: ROSLYN WEBER Address: home [address] [place] [address]
--- OUTSIDE RECORDS SUMMARY | 2024-04-27 06:17 | XMS_ITS | Continuity of Care Document ---
Author Organization [facility] ter Address [address] [place] [address]- Care Team Providers Care Search Planner Name Role Phone Macey Goodrich MD, Chantal Primary Care Phys ician Encounter [facility] Date(s): 08/07/22 - 10/24/[address] [address] Attending Physician: Alfred Bernabe MD Referring Physician: Alfred [...] 06/27/22 9:18:00 EDT, Route to Pharmacy Electronically, [facility]/pharmacy #[id number], Partial fill upon patient request if the [...] Refills, Maintenance, 06/27/22 9:17:00 EDT, DIS Tablet, [facility]/pharmacy #[id number], Partial fill upon patient request if [...] Status Informant Carpal tunnel syndrome Confirmed Active Depression Confirmed Active Acid reflux disease Confirmed Active Hypertension Confirmed Active Cervicalgia Confirmed Active Obesity Confirmed Active Osteoarthritis Confirmed Active Severe obesity Confirmed Active Sleep apnea Confirmed Active Social History Social History Type Response Smoking Status Former smoker, quit more than 30 days ago entered on: 06/02/21 Sex Patient Care team information Care Team Personnel Name: Salomón Fernandez RN Position: S RN Member Role: Primary Care Nurse Name: Ishmael Hong RN Position: S RN Member Role: Primary Care Nurse Name: Chantal Mehta MD Position: Reference Physician Member Role: PCP Address: Address: [address] [place] [address]- Name: Shilpi Schmitt RN Position: S RN Member Role: Primary Care Nurse Name: Benjamín Rowlye RN Position: S RN Member Role: Primary Care Nurse Care Team Related Persons Name: JULIET MARTIN Address: home [address] [place] [address] Name: ROSLYN WEBER Address: home [address] [place] [address]
[2024-04-27] MEDS: Scopolamine 1.5 MG PATCH.TD.3 TRANSDERMA (06:32)
[2024-04-27] MEDS: Lactated Ringers 1,000 ML 100 ML IVCONT ×3 (07:06→21:14)
--- NOTE | 2024-04-27 07:32 | MHC.SHP ---
Pre-Procedural Eval Section A - 24 Hr Update-Section A only Date of Service: 04/27/24 The patient is an INPATIENT: No Changes since office visit: No Cold of Flu in the past 2 weeks, No New Medical Problems, No Changes in Medication and No Patient answered all questions The patient has been examined within 24 hours of the surgical procedure. The History & Physical has been completed within 30 days and I have reviewed it.: Yes Section B - Complete if H&P > 30 days Chief Complaint: RTKA Allergies: Allergies Allergy/AdvReac Type Severity Reaction Status Date / Time morphine Allergy Severe Vomiting Verified 04/27/24 06:20 adhesive tape AdvReac Intermediate Blister/julio Verified 04/27/24 06:20 h ciprofloxacin [Cipro HC] AdvReac Intermediate insomnia Verified 04/27/24 06:20 Plan I have reviewed the history and physical and performed a pertinent physical examination on my patient. No changes have occurred unless specified. Time Spent With Patient Time: Total time managing care of this patient today ____ minutes.
--- NOTE | 2024-04-27 08:43 | PM.DS ---
DS: Providers Provider Date of Service: 04/28/24 Date of admission: 04/27/24 06:11 Primary care physician: Chantal Magallanes MD DS: Summary Hospital Course Hospital Course: The patient underwent a successful right total knee arthroplasty, they were transferred to PACU and then to the floor to recover. During their stay, their vitals were stable, afebrile at 97.3. Labs were unremarkable, H/H 8.4/26.5. POD 1 they were started on Lovenox for DVT ppx, they also received Physical Therapy services twice a day. Prior to discharge, their dressing was clean dry and intact, and the plan was to be discharged home with VNA services. Time Attestation Discharge Coordination Time (in mins): 30 Quality: Safe Use of Opioids Does Pt have an Active Cancer Diagnosis on the Problem List?: No Quality: Stroke Does the patient have a stroke diagnosis?: No Physical Exam Vital Signs: Vital Signs: Last Vital Signs Temp 97.8 F 04/27/24 06:44 Pulse 92 04/27/24 06:44 Resp 16 04/27/24 06:44 BP 157/93 H 04/27/24 06:44 Pulse Ox 95 04/27/24 06:44 O2 Del Method Room Air 04/27/24 06:44 BMI result Body Mass Index 46.1 Const: General: cooperative, healthy appearing and no acute distress Resp: Effort & Inspection: normal respiratory effort and able to speak in complete sentences Cardio: Rate: regular rate Peripheral pulses: Peripheral pulses 2+ throughout GI: Palpation (GI): Soft to palpation Skin: Lesions: no lesions Rashes: no rashes Extrem: Other: right knee dressing is c/d/i. Able to dorsi/plantar flex. Calf is supple and nontender. Sensation intact. Pedal pulse intact. DS: Data Data Completed and Pending Completed studies during hospitalization [Text1]: Procedures Introduction of Anesthetic Agent into Peripheral Nerves and Plexi, Percutaneous Approach (01/21/24) Replacement of Left Knee Joint with Synthetic Substitute, Cemented, Open Approach (01/21/24) Pending studies at discharge: Pending at discharge 04/27/24 08:10 Surgical [PTH] Routine Discharge Plan Discharge Anticipated Discharge Date/Time: 04/28/24 13:42 Patient Disposition: Home Health Service Discharge Diagnosis: s/p RTKA Referrals: Jake Patel PA-C [Physician Agricultural Aircraft Pilot] - 05/14/24 8:30 am Discharge Medications: New acetaminophen 325 mg Tablet 650 mg PO Q6H PRN (Reason: Pain, Mild (Pain Scale 1-3), fever or headache) 30 Days Qty: 240 0RF enoxaparin 40 mg/0.4 mL Syringe 40 mg subcut Q24H 42 Days Qty: 16.8 0RF docusate sodium 100 mg Capsule 100 mg PO BID 30 Days Qty: 60 0RF oxycodone 5 mg Tablet 5 mg PO Q4H PRN (Reason: Pain, Moderate(Pain Scale 4-6)) 7 Days Qty: 42 0RF Rx Instructions: Partial Fill upon patient request. Continued valsartan 80 mg tablet 80 mg PO DAILY phentermine 15 mg capsule 15 mg PO DAILY citalopram 20 mg tablet 20 mg PO DAILY diclofenac sodium 75 mg tablet,delayed release (DR/EC) 75 mg PO TID calcium carbonate-vitamin D3 600 mg-5 mcg (200 unit) Tablet 1 tab PO DAILY pyridoxine (vitamin B6) [Vitamin B-6] 100 mg Tablet 100 mg PO DAILY cholecalciferol (vitamin D3) [Vitamin D3] 25 mcg (1,000 unit) Capsule 25 mcg PO DAILY magnesium oxide 400 mg magnesium Tablet 400 mg PO DAILY estradiol 0.5 mg tablet 0.5 mg PO BEDTIME triamterene-hydrochlorothiazid 37.5-25 mg tablet 1 tab PO DAILY pantoprazole 40 mg tablet,delayed release (DR/EC) 40 mg PO DAILY@0630 tramadol 50 mg tablet 100 mg PO TID PRN (Reason: Pain) Discontinued acetaminophen 325 mg Tablet 650 mg PO Q6H PRN (Reason: Pain, Mild (Pain Scale 1-3)) 30 Days Qty: 240 0RF Discharge Orders: Discharge Order (Routine); Ordered 04/28/24 Ordered By: Beth Shepard Diet: Advance to usual diet Activity on Discharge: Use cane or walker Stand Alone Forms: Patient Portal Discharge page Print Language: Malawian Care Plan Goals: restore fxn to rt knee Health Concerns: none Plan of Treatment: Physical Therapy for ROM 0-120, quad strength, gait training. Use walker for ambulation Limit stair climbing, No shower, No tub bath, No driving Continue anticoagulant x 6 weeks Keep Aquacel dressing clean, dry and intact. Follow up with orthopedics in 2 weeks Assessment: stable for discharge
--- NOTE | 2024-04-27 08:44 | P.F2F_ITS ---
Service Date Service Date: 04/27/24 Encounter Date of encounter: 04/28/24 Reasons for Services Signs and symptoms assessed: s/p RTKA Pt. is considered homebound due to recent surgery. Unable to drive, poor balance, poor gait mechanics. Reason for physical therapy: home safety and mobility, therapeutic exercises, restore joint function, gait/transfer training, assess need for DME and ADL training Homebound: Leaving the home is medically contraindicated at this time without the asist of a device and/or another person due th the listed conditions above and below. Reason homebound: unsteady gait / fall risk, leg weakness, pain with ambulation, pain with transfers, poor balance / fall risk and unable to drive Certification: Based on the above findings, I certify that this patient is confined to the home and needs intermittent retirement care, physical therapy and/or speech therapy, or continues to need occupational therapy. The patient is under my care, and I have initiated the establishment of the plan of care. The patient will be followed by a physician who will periodically review the plan of care. Time Spent With Patient Time: Total time managing care of this patient today ____ minutes.
--- NOTE | 2024-04-27 09:18 | PM.OP ---
Brief Operative Note Date of Service: 04/27/24 Pre-op diagnosis: Right knee OA Post-op diagnosis: same Procedure: Right TKA Implants: [employer] Triathlon Cemented PS 01/10/11ps/29a Surgeon: Selvin Martinez MD Anesthesia: regional and spinal Was an Solar Installation Supervisor used for this Procedure?: Yes Solar Installation Supervisor: Jake Patel Estimated blood loss (mL): 20 Tourniquet time (min): 57 IV fluids (mL): 1,000 Pathology: other Condition: stable Disposition: PACU
--- NOTE | 2024-04-27 09:56 | PHA.MEDREC ---
Pharmacy Consult ? Medication Reconciliation Pharmacy has completed the medication reconciliation. Reviewed med rec done by nursing (Cherry).
--- NOTE | 2024-04-27 10:41 | HO.PM.IMCN ---
History of Present Illness Data of Consult Service Date: 04/27/24 Requesting physician: Jake Patel Primary Care Provider: Chantal Magallanes MD [facility] Reason for consult: medical management 64 year old female with history of ckd3, bora on cpap, gerd, htn, hx r renal cancer s/p partial nephrectomy, morbid obesity with bmi >46 admitted to orthopedic surgery for mangement of right knee OA s/p TKA with consult placed to hospitalist service for medical H&P. She is feeling well post operative, still with numbness in the ble. Has not yet voided. Vitals are wnl post op. Per brief operative note, surgery appears to have been uncomplicated. Review of Systems Review of Systems: Yes all other systems are reviewed and are negative [facility] Medical History Anemia Urinary retention History of nephrolithiasis Chronic kidney disease, stage 3 Hx of hydronephrosis Hx of pyelonephritis Osteoarthritis BORA on CPAP Depression Anxiety PONV (postoperative nausea and vomiting) GERD (gastroesophageal reflux disease) HTN (hypertension) History of primary malignant neoplasm of right kidney (~11/2022) Renal calculus, left Osteoarthritis of left knee Morbid obesity with BMI of 45.0-49.9, adult Surgical History History of total left knee replacement History of nephrectomy, right Hx of eye surgery History of esophagogastroduodenoscopy (EGD) Hx of colonoscopy H/O ventral hernia repair (~05/2023) Hx of cystoscopy (~2020) Hx of hand surgery H/O: hysterectomy (~1998) History of carpal tunnel release History of spinal fusion Social History Household Members: None Housing: House Housing Other:: 1st floor of two family house Are you a primary critical care specialist to a significant other at home: No Do you presently have visiting nurse or other home services: No Patient Tobacco Use Status: Former Tobacco user Tobacco use type: Cigarette Years Smoked: 30 e-Cigarette/Vaping Use: Never Used Have you been hit, kicked, punched, or otherwise hurt by someone within the past year? If so, by whom?: No Are you DNR?: No Advance Directives Information Provided: Yes (as above noted) Advance Directives on File: No Recently lost weight without trying: No Eating poorly because of decreased appetite: No Nutrition Risks: No Nutritional Risk Poor oral hygiene: No service: No Meds Allergies Allergy/AdvReac Type Severity Reaction Status Date / Time morphine Allergy Severe Vomiting Verified 04/27/24 06:20 adhesive tape AdvReac Intermediate Blister/julio Verified 04/27/24 06:20 h ciprofloxacin [Cipro HC] AdvReac Intermediate insomnia Verified 04/27/24 06:20 Active Medications: Current Medications Acetaminophen (Acetaminophen 325 Mg Tablet) 650 mg PO Q6H PRN PRN Reason: Pain, Mild (Pain Scale 1-3), fever or headache Docusate Sodium (Docusate Sodium 100 Mg Capsule) 100 mg PO BID SAMINA Enoxaparin Sodium (Enoxaparin Sodium 40 Mg/0.4 Ml Syringe) 40 mg SUBCUT Q24H SAMINA Estradiol (Estradiol 0.5 Mg Tablet) 0.5 mg PO BEDTIME SAMINA Hydromorphone HCl (Hydromorphone Hcl 0.5 Mg/0.5 Ml Syringe) 0.25 mg IVPUSH Q4H PRN; Protocol PRN Reason: Pain, Severe (Pain Scale 7-10) Cefazolin Sodium/Dextrose (Ancef) 2 gm in 50 mls @ 100 mls/hr IV POSTOP ONE Stop: 04/27/24 11:05 Lactated Ringer's (Lr) 1,000 mls @ 100 mls/hr IVCONT .Q10H SAMINA Stop: 04/28/24 09:13 Magnesium Oxide (Magnesium Oxide 400 Mg Tablet) 400 mg PO QAM SAMINA Non-Formulary Medication (Citalopram) 20 mg PO QAM SAMINA Non-Formulary Medication (Pantoprazole) 40 mg PO QAM SAMINA Non-Formulary Medication (Phentermine) 15 mg PO QAM SAMINA Non-Formulary Medication (Pyridoxine (Vitamin B6) [Vitamin B-6]) 100 mg PO QAM SAMINA Ondansetron HCl (Ondansetron Hcl 4 Mg/2 Ml Vial) 4 mg IVPUSH Q8H PRN PRN Reason: Nausea and Vomiting Oxycodone HCl (Oxycodone Hcl Immed Release 5 Mg Tablet) 5 mg PO Q4H PRN PRN Reason: Pain, Moderate(Pain Scale 4-6) Oxycodone HCl (Oxycodone Hcl Er 10 Mg Tab.Er.12h) 10 mg PO BID [facility] Sodium Chloride (0.9 % Sodium Chloride Flush 3 Ml Syringe) 3 ml IVFLUSH QSHIFT [facility] Home Medications ?Medication ?Instructions ?Recorded ?Confirmed ?Last Taken ?Type estradiol 0.5 mg tablet 0.5 mg PO BEDTIME 07/08/22 04/13/24 04/26/24 History pantoprazole 40 mg tablet,delayed 40 mg PO DAILY@0630 07/08/22 04/27/24 04/27/24 05:00 History release triamterene 37.5 1 tab PO DAILY 07/08/22 04/27/24 04/26/24 History mg-hydrochlorothiazide 25 mg tablet valsartan 80 mg tablet 80 mg PO DAILY 01/14/24 04/27/24 04/26/24 History tramadol 50 mg tablet 100 mg PO TID PRN Pain 03/04/24 04/13/24 Unknown History citalopram 20 mg tablet 20 mg PO DAILY 04/12/24 04/27/24 04/26/24 History phentermine 15 mg capsule 15 mg PO DAILY 04/12/24 04/27/24 04/26/24 History calcium carbonate 600 mg-vitamin 1 tab PO DAILY 04/13/24 04/27/24 04/26/24 History D3 5 mcg (200 unit) tablet cholecalciferol (vitamin D3) 25 25 mcg PO DAILY 04/13/24 04/27/24 04/26/24 History mcg (1,000 unit) capsule (Vitamin D3) diclofenac sodium 75 mg 75 mg PO TID 04/13/24 04/13/24 04/20/24 History tablet,delayed release magnesium oxide 400 mg PO DAILY 04/13/24 04/27/24 04/26/24 History pyridoxine (vitamin B6) 100 mg 100 mg PO DAILY 04/13/24 04/27/24 04/26/24 History tablet (Vitamin B-6) Physical Exam Vital Signs and Narrative: Vital Signs: Last Vital Signs Temp 97.5 F 04/27/24 09:50 Pulse 69 04/27/24 09:50 Resp 16 04/27/24 09:50 BP 115/58 L 04/27/24 09:50 Pulse Ox 95 04/27/24 09:50 O2 Del Method Nasal Cannula 04/27/24 09:50 O2 Flow Rate 2 04/27/24 09:50 BMI result Body Mass Index 46.1 Constitutional - Awake and Alert, No apparent distress Eyes - PERRLA, EOMI Cardiovascular - S1S2, RRR, No edema Respiratory - Normal lung expansion, Normal respiratory effort, No respiratory distress, CTA bilaterally Gastrointestinal - NT / ND; +BS; No rebound or guarding Extremities - no calf tenderness bilaterally, no swelling Skin - Warm/Dry Neurological - Alert & oriented x3 Psychological - Appropriate affect Results Labs 04/13/24 13:56 04/13/24 13:56 Imaging Radiologist's Impressions: Impressions Knee X-Ray 04/27/24 09:40 IMPRESSION: 1. Status post right knee arthroplasty. Orthopedic hardware is grossly intact. 2. Postsurgical soft tissue air and skin elke along the supra patellar and infrapatellar region. 3. No acute visible fracture or dislocation. Assessment and Plan (1) Status post total right knee replacement: Status: Acute (2) Osteoarthritis of right knee: Status: Acute Plan 64 year old female with history of ckd3, bora on cpap, gerd, htn, hx r renal cancer s/p partial nephrectomy, morbid obesity with bmi >46 admitted to orthopedic surgery for management of right knee OA s/p TKA with consult placed to hospitalist service for medical H&P. #OA R Knee s/p TKA -plan per ortho surgery #BORA -cpap bedtime (bringing from home) #HTN -well controlled post operatively -hold valsartan and dyrenium for now. Resume on discharge. Consider valsartan resumption or amlodipine if elevated blood pressures #gerd -ppi #mood disorder -continue home meds #Morbid obestity w/ bmi >46 -weight loss efforts. continue phentermine Thank you for this consult, will continue following along with you.
[2024-04-27] MEDS: ceFAZolin Sodium/Dextrose,Iso 2 GM/50 ML PIGGYBACK IV (10:57)
[2024-04-27] MEDS: Magnesium Oxide 400 MG TABLET PO (11:04)
[2024-04-27] MEDS: oxyCODONE HCl Immed Release 5 MG TABLET PO ×3 (11:09→19:18)
--- NOTE | 2024-04-27 12:02 | W.PM.OPN ---
Operative Note Operative Note Date of Service: 04/27/24 Narrative: Date of Service: 04/27/24 Pre-op diagnosis: Right knee OA Post-op diagnosis: same Procedure: Right TKA Implants: [employer] Triathlon Cemented PS 01/10/ps/29a Surgeon: Selvin Martinez MD Anesthesia: regional and spinal Was an Sport Intern used for this Procedure?: Yes Sport Intern: Jake Patel Estimated blood loss (mL): 20 Tourniquet time (min): 57 IV fluids (mL): 1,000 Pathology: other Condition: stable Disposition: PACU Procedure in detail: The patient was brought to the operating room and prepped and draped in standard sterile fashion. A time-out was called to identify proper site proper procedure proper surgeon and IV antibiotics were administered. 1 g of IV tranaxemic acid was administered. I began by making a midline incision to the retinaculum and performed a medial parapatellar arthrotomy. The patella was translated laterally and the knee was flexed up. The medial plateau was depressed and eburnated. I performed a small medial peel and resected the infrapatellar fat pad. [place]'s line was then used to drill my intramedullary femoral guide and my distal femur cut of 12 mm ( 10 deg flexion contracture) was made in 5 degrees of valgus while protecting the soft tissues. I then measured a # 3 femur and placed my 3 deg ER cutting guide and made my anterior posterior and chamfer cuts protecting the soft tissues at all times. I then made my box but removing the PCL. Once I was satisfied with my cuts I turned my attention to the tibia. I removed the meniscus medially and laterally and , using an external cutting guide, in line with the tibial crest and the third ray, I made my distal tibial cut in 0 deg slope of while protecting the posterior soft tissues at all times. An extension block was used to confirm appropriate amount of bony resection. I then sized a #3 tibia and once I was satisfied that there was complete tibial coverage I placed my trial and with the trial femur in place took the knee through range of motion. I was satisfied with the extension and flexion as well as the balance at 0, 30 and 90 degrees. I then turned my attention to the patella where I removed 1 cm from the undersurface of the patella and then trialed a 29a patellar button. Again the knee was taken through range of motion I was satisfied with the tracking. I then prepared the tibia with a drill and punch. A femoral bone plug was placed and the knee was irrigated copiously. I then cemented the patella, tibia and femur in standard fashion. Axial compression and a clamp were used while the cement dried. Once the cement was hard on the back table all excess cement was removed and I trialed different inserts until I selected a #11ps insert. The final insert was placed and I irrigated copiously and local TXA was administered. The knee was then closed with a running Quill suture, a 3 0 Vicryl and elke on the skin. Patient was then placed in sterile dressing and brought to recovery room in stable condition there were no known complications.
[2024-04-27] MEDS: HYDROmorphone HCl 0.5 MG/0.5 ML SYRINGE 0.25 MG IVPUSH ×3 (13:22→22:54)
[2024-04-27] MEDS: Acetaminophen 325 MG TABLET 650 MG PO (14:42)
[2024-04-27] MEDS: 0.9 % Sodium Chloride Flush 3 ML SYRINGE IVFLUSH ×2 (17:27→22:55)
[2024-04-27] MEDS: Docusate Sodium 100 MG CAPSULE PO (20:25)
[2024-04-27] MEDS: oxyCODONE HCl ER 10 MG TAB.ER.12H PO (20:26)
[2024-04-27] MEDS: estradioL 0.5 MG TABLET PO (20:26)
[2024-04-28] VITALS (9 sets, daily range): BP systolic 139–148; BP diastolic 65–79; PULSE 79–97; RESP 16–18; TEMP 36.2–37; O2SAT 94–97
[2024-04-28] MEDS: HYDROmorphone HCl 0.5 MG/0.5 ML SYRINGE 0.25 MG IVPUSH ×3 (03:00→13:20)
[2024-04-28] MEDS: oxyCODONE HCl Immed Release 5 MG TABLET PO ×2 (05:24→11:18)
[2024-04-28] MEDS: Omeprazole 20 MG CAPSULE.DR PO (05:25)
[2024-04-28 06:21] LABS: MANUAL DIFF FLAG NO
[2024-04-28 06:28] LABS: Basophils Percent Auto 0.2 % (0-2); Hematocrit 26.5 % (37.0-47.0); Hemoglobin 8.4 g/dl (12.0-16.0); Imm Gran Abs Auto 0.05 X10*3/uL (0.00-0.03); Imm Gran Pct Auto 0.4 % (0.0-0.4); Lymphocytes Absolute Auto 2.6 X10*3/uL (1.2-4.9); Lymphocytes Percent Auto 20.8 % (20-40); Mean Corpuscular HGB Conc 31.7 g/dl (31.0-35.0); Mean Corpuscular Hemoglobin 24.3 pg (27.0-33.0); Mean Corpuscular Volume 76.6 fL (80.0-98.0); Mean Platelet Volume 11.2 fL (9.4-12.3); Monocytes Absolute Auto 1.1 X10*3/uL (0.1-1.2); Monocytes Percent Auto 8.6 % (2-11); Neutrophils Absolute Auto 8.8 x10*3/uL (2.0-8.3); Platelet Count 359 X10*3/uL (160-400); Red Blood Count 3.46 X10*6/uL (4.20-5.50); Red Cell Distribution Width 14.6 % (11.0-16.0); White Blood Count 12.6 X10*3/uL (4.8-10.8)
[2024-04-28 06:40] LABS: Anion Gap 13 (12-20); Blood Urea Nitrogen 12 mg/dL (9-16); Calcium 9.4 mg/dL (8.4-10.2); Carbon Dioxide 25 mmol/L (22-29); Chloride 104 mmol/L (96-108); Estimated Glomerular Filt Rate > 60; Glucose Fasting 117 mg/dL (60-99); Potassium 3.7 mmol/L (3.3-5.1); Sodium 138 mmol/L (135-145)
--- NOTE | 2024-04-28 06:59 | PM.EVENT ---
Event Note Date of Service: 04/28/24 Event Note: sbp 144, will restart valsartan Time Spent With Patient Time: Total time managing care of this patient today ____ minutes.
--- NOTE | 2024-04-28 07:49 | HO.POSTANES ---
Post Anesthesia Evaluation Post Anesthesia Evaluation Date of Service: 04/27/24 Vital Signs: Vital Signs Temp Pulse Resp BP Pulse Ox O2 Del Method 04/28/24 07:21 97.3 F 88 18 148/68 H 97 Room Air 04/28/24 06:24 18 04/28/24 04:00 98.6 F 97 16 144/69 H 94 Room Air 04/28/24 03:30 18 04/28/24 00:00 97.6 F 93 18 141/79 H 95 Room Air 04/27/24 23:25 18 04/27/24 20:00 98.0 F 80 18 165/79 H 96 Room Air Anesthesia: Spinal Mental Status: Awake Pain Control: Satisfactory Nausea/Vomiting: None Hydration: Adequate Anesthesia-Related Issues: No Anes. Related Issues
[2024-04-28] MEDS: Enoxaparin Sodium 40 MG/0.4 ML SYRINGE SUBCUT (08:22)
[2024-04-28] MEDS: Escitalopram Oxalate 10 MG TABLET PO (08:23)
[2024-04-28] MEDS: 0.9 % Sodium Chloride Flush 3 ML SYRINGE IVFLUSH (08:23)
[2024-04-28] MEDS: Docusate Sodium 100 MG CAPSULE PO (08:23)
[2024-04-28] MEDS: Pyridoxine HCl (Vitamin B6) 50 MG TABLET 100 MG PO (08:23)
[2024-04-28] MEDS: Valsartan 80 MG TABLET PO (08:23)
[2024-04-28] MEDS: Magnesium Oxide 400 MG TABLET PO (08:23)
[2024-04-28] MEDS: oxyCODONE HCl ER 10 MG TAB.ER.12H PO (08:23)
[2024-04-28] MEDS: Acetaminophen 325 MG TABLET 650 MG PO (08:38)
--- NOTE | 2024-04-28 09:16 | MHC.CM.PN ---
pt being dcd today with gary
== END 2024-04-28 14:23 | disposition home health service (06) | DRG 470 ==
LOC: HO.SSSA 08:43 → HO.S3 09:36
PROVIDERS: Nurse Practitioner; Orthopaedic Surgery; Physician Assistant; Admitting Provider Physician Assistant; PCP Internal Medicine; Visit Provider Physician Assistant
PROC: 0SRC0J9 Replacement of Right Knee Joint with Synthetic Substitute, Cemented, Open Approach (ICD-10-PCS; CPT 27447; principal; 2024-04-27 07:30)
DX: M17.11 Unilateral primary osteoarthritis, right knee (principal); E66.01 Morbid (severe) obesity due to excess calories; G47.33 Obstructive sleep apnea (adult) (pediatric); G89.18 Other acute postprocedural pain; Z85.528 Personal history of other malignant neoplasm of kidney; I12.9 Hypertensive chronic kidney disease with stage 1 through stage 4 chronic kidney disease, or unspecified chronic kidney disease; N18.30 Chronic kidney disease, stage 3 unspecified; K21.9 Gastro-esophageal reflux disease without esophagitis; F39 Unspecified mood [affective] disorder; Z79.899 Other long term (current) drug therapy
CPT/HCPCS: 27447; 36415; 73560; 80048; 85025; 85027; 86850; 86900; 86901; 87640; 87641; 88305; 88311; 97110; 97116; 97162; C1713; C1776; J0131; J0665; J0690; J1100; J1170; J1650; J2250; J2405; J2704; J3010; J7120

== ENCOUNTER → 2024-04-27 06:11 | Outpatient (BNV) | payer MEDICARE, MEDICAID, SELFPAY | PROVIDERS: Admitting Provider Physician Assistant; PCP Internal Medicine; Visit Provider Physician Assistant | DX: M17.11 Unilateral primary osteoarthritis, right knee (principal); Z96.651 Presence of right artificial knee joint | CPT/HCPCS: 99222; 99499 ==

== ENCOUNTER → 2024-04-27 06:11 | Outpatient (BNV) | payer MEDICARE, MEDICAID, SELFPAY | PROVIDERS: Admitting Provider Physician Assistant; PCP Internal Medicine; Visit Provider Orthopaedic Surgery | DX: M17.11 Unilateral primary osteoarthritis, right knee (principal); Z48.89 Encounter for other specified surgical aftercare | CPT/HCPCS: 27447; 99024; 99212; G0180 ==

== ENCOUNTER 2024-05-14 08:21 | Outpatient (AMB) | payer MEDICARE, MEDICAID, SELFPAY ==
--- NOTE | 2024-05-14 08:40 | A.OFFVIS_ITS ---
Intake Visit Reasons: 2WK PO: R TKA w/NE 04/27/24 Intake Note: Mikki is a 64 year old female who presents today two weeks post operatively s/p Right TKA w/NE 04/27/24. Patient reports she is doing good and has no concerns today. Allergies morphine Allergy (Severe, Verified 05/14/24 08:43) Vomiting adhesive tape Adverse Reaction (Intermediate, Verified 05/14/24 08:43) Blister/rash ciprofloxacin [Cipro HC] Adverse Reaction (Intermediate, Verified 05/14/24 08:43) insomnia HPI HPI 2WK PO: R TKA w/NE 04/27/24: Details: 64-year-old female who returns to the office today for post-op right TKA, 04/27/[address] Martinez. She states she has no pain however she experiences some stiffness in the morning. She takes oxycodone as well as icing and elevation with benefits. She is doing well overall and has no concerns today. [facility] Medical History Osteoarthritis of right knee Anemia Urinary retention History of nephrolithiasis Chronic kidney disease, stage 3 Hx of hydronephrosis Hx of pyelonephritis Osteoarthritis BORA on CPAP Depression Anxiety PONV (postoperative nausea and vomiting) GERD (gastroesophageal reflux disease) HTN (hypertension) History of primary malignant neoplasm of right kidney (~11/2022) Renal calculus, left Osteoarthritis of left knee Morbid obesity with BMI of 45.0-49.9, adult Surgical History History of total left knee replacement History of nephrectomy, right Hx of eye surgery History of esophagogastroduodenoscopy (EGD) Hx of colonoscopy H/O ventral hernia repair (~05/2023) Hx of cystoscopy (~2020) Hx of hand surgery H/O: hysterectomy (~1998) History of carpal tunnel release History of spinal fusion Social History Household Members: None Housing: House Housing Other:: 1st floor of two family house Are you a primary patient care manager to a significant other at home: No Do you presently have visiting nurse or other home services: No Patient Tobacco Use Status: Former Tobacco user Tobacco use type: Cigarette Years Smoked: 30 e-Cigarette/Vaping Use: Never Used service: No Review of Systems Const All systems reviewed & are unremarkable except as noted in HPI and below Physical Exam Extrem Other: Right knee: Incision clean, dry and intact. No redness or drainage. Mild swelling. ROM is 0-95 degrees. Calf supple, nontender. NVI. Assessment & Plan Assessment & Plan (1) Status post total right knee replacement: Code(s): Z96.651 - Presence of right artificial knee joint Category: Surgical Plan Cameron removed, steri strips applied. She will begin to transition to Outpatient PT on 05/24 at [facility] to continue working on Gait training, ROM and quad strength. No driving for another 4 weeks. She will require ppx abx for dental procedures. She will f/u in 4 weeks, sooner if needed. Patient Instructions: Scribed for Jake Patel PA-C, by Xavier Oneill medical secretary receptionist, on 05/14/2024 at 8:30 AM EST.? I, Jake Patel PA-C, have personally reviewed and agree with the information entered by the scribe. Coding Level of Care Code Global (12755) Diagnoses Status post total right knee replacement Z96.651
== END 2024-05-14 09:26 | disposition home or self-care (01) ==
PROVIDERS: PCP Internal Medicine; Visit Provider Physician Assistant
DX: Z96.651 Presence of right artificial knee joint (principal)
CPT/HCPCS: 99024

== ENCOUNTER → 2024-05-14 08:21 | Outpatient (BNVA) | payer MEDICARE, MEDICAID, SELFPAY | PROVIDERS: PCP Internal Medicine; Visit Provider Physician Assistant | DX: Z47.1 Aftercare following joint replacement surgery (principal); Z96.651 Presence of right artificial knee joint | CPT/HCPCS: 99212 ==

== ENCOUNTER 2024-06-03 09:10 | Outpatient (AMB) | payer MEDICARE, MEDICAID, SELFPAY ==
--- NOTE | 2024-06-03 09:14 | A.OFFVIS_ITS ---
Intake Visit Reasons: 6WK PO: R TKA w/NE 04/27/24 Intake Note: Mikki is a 64 year old female who presents today with a cane 6 weeks post operatively S/P Right TKA 04/27/24. Patient reports she is doing well. She started PT which is going well. She expresses she walks at home everyday, each day a little further, stretches daily and using her bike and that is okay but on PT days she has more pain. She takes her pain medications when she gets home from PT for relief. She came in with a list of questions for Dr Martinez regarding swimming, shaving, and medications. She missed two cleanings and would also like to know when can she return to dentist. Allergies morphine Allergy (Severe, Verified 06/03/24 09:20) Vomiting adhesive tape Adverse Reaction (Intermediate, Verified 06/03/24 09:20) Blister/rash ciprofloxacin [Cipro HC] Adverse Reaction (Intermediate, Verified 06/03/24 09:20) insomnia HPI HPI 6WK PO: R TKA w/NE 04/27/24: Details: Mikki is a 64 year old female who presents today with a cane 6 weeks post operatively S/P Right TKA 04/27/24. Patient reports she is doing well. She started PT which is going well. She expresses she walks at home everyday, each day a little further, stretches daily and using her bike and that is okay but on PT days she has more pain. She takes her pain medications when she gets home from PT for relief. She came in with a list of questions for Dr Martinez regarding swimming, shaving, and medications. She missed two cleanings and would also like to know when can she return to dentist. [facility] Medical History Osteoarthritis of right knee Anemia Urinary retention History of nephrolithiasis Chronic kidney disease, stage 3 Hx of hydronephrosis Hx of pyelonephritis Osteoarthritis BORA on CPAP Depression Anxiety PONV (postoperative nausea and vomiting) GERD (gastroesophageal reflux disease) HTN (hypertension) History of primary malignant neoplasm of right kidney (~11/2022) Renal calculus, left Osteoarthritis of left knee Morbid obesity with BMI of 45.0-49.9, adult Surgical History History of total left knee replacement History of nephrectomy, right Hx of eye surgery History of esophagogastroduodenoscopy (EGD) Hx of colonoscopy H/O ventral hernia repair (~05/2023) Hx of cystoscopy (~2020) Hx of hand surgery H/O: hysterectomy (~1998) History of carpal tunnel release History of spinal fusion Social History Household Members: None Housing: House Housing Other:: 1st floor of two family house Are you a primary cna caregiver to a significant other at home: No Do you presently have visiting nurse or other home services: No Patient Tobacco Use Status: Former Tobacco user Tobacco use type: Cigarette Years Smoked: 30 e-Cigarette/Vaping Use: Never Used service: No Physical Exam Extrem Other: 0-110 ( baseline) inc c/d/i no gait antalgia Assessment & Plan Assessment & Plan (1) Status post total right knee replacement: Code(s): Z96.651 - Presence of right artificial knee joint Category: Surgical Plan: Doing well. May dc asa wait another 6 weeks before dental cleaning and should call re antibiotic prophylaxis cont PT and WBAT (2) Status post total left knee replacement: Code(s): Z96.652 - Presence of left artificial knee joint Category: Surgical Plan: DOing well Coding Level of Care Code Global (89454) Diagnoses Status post total right knee replacement Z96.651 Status post total left knee replacement Z96.652
== END 2024-06-03 09:43 | disposition home or self-care (01) ==
PROVIDERS: PCP Internal Medicine; Visit Provider Orthopaedic Surgery
DX: Z96.651 Presence of right artificial knee joint (principal); Z96.652 Presence of left artificial knee joint
CPT/HCPCS: 99024

== ENCOUNTER → 2024-06-03 09:10 | Outpatient (BNVA) | payer MEDICARE, MEDICAID, SELFPAY | PROVIDERS: PCP Internal Medicine; Visit Provider Orthopaedic Surgery | DX: Z09 Encounter for follow-up examination after completed treatment for conditions other than malignant neoplasm (principal); Z96.651 Presence of right artificial knee joint; Z96.652 Presence of left artificial knee joint | CPT/HCPCS: 99212 ==

== ENCOUNTER 2024-06-07 08:00 | Outpatient (RCR) | payer MEDICARE, MEDICAID, SELFPAY ==
--- NOTE | 2024-05-31 12:19 | MHC.PT.OD ---
[facility] [place] [facility] [place] [facility] [place] [facility] [address] [place] [address] [phone] F: [phone] F: [phone] F: [phone] F: [phone] Physical Therapy Daily Note Diagnosis: Z96.651 Presence of right artificial knee joint. Surgery on 04/26/24 w/ Dr. Martinez. R TKA with NE book after 05/14/24 appt. signed by DANIELLE MEJIA 04/22/24 Date of Surgery: 04/26/24 Date of Evaluation: 05/24/24 Date of Treatment: 05/26/24 Treatments to Date: 3 Cancellations to Date: No Shows to Date: Authorized Visits: Insurance End Date: Precautions/ Contraindications:WBAT, OA, Hypertension, hx of LTKR Subjective: Presents to the office without std cane, I left it in the car and Im going to try Wingu tomorrow. Pt states she has not done shopping for herself in several years. Pain Score and Location: 3 R. Knee Objective Flowsheet: Tests & Measures R AAROM flexion 112 degrees following heel slides with green strap R extension following ice: -5 degrees Exercises Scifit bike seat 7 X 3 minutes rocking backward and then fwd revolution x 3 minutes. Pt encouraged to continue use of her bike at home daily for mobility/ROM. -Quad sets on the R 2X10 reps -SAQs on the R w/ bolster under knees 2X10 reps -Bilateral ankle pumps 2X10 reps with knee bent and knee straight -SLR bilateral 2X10 reps each side. no quad lag noted -Glute squeezes 2X10 reps -Heels slides X5 reps (flexion ROM measurement taken after) -Seated hamstring stretch 3X20 sec holds each side -Self-rolling with green theraband roller to bother bottoms of feet due to pt reports of feet cramping/plantar fascia tightness; also trialed with tennis ball seated. -Bilateral calf raises 2X10 reps holding onto bike for balance support AAROM flexion with strap x 10R x 20 sec hold to 113 degrees today. Standing gastroc stretch reviewed, self care plantar fascia with flexbar/tennis ball today. Pt. education on post surgical care. Discussed not using lotion around the incision site that is still scabbing. Review of self-scar tissue massage. Discussed frequency of performing exercises and importance of icing knee. Educated on avoiding pool water until MD gives clearance. Modalities Ice to ant/post R knee w/ towel roll under ankle X10 minutes. Assessment: 05/31/25: Pt will be seeing Dr. Martinez on at 9:15 am. Pt is progressing along with AROM -3 to AAROM 0 to 113 degrees today. She inquires about dental work, pool clearance, driving clearance, and lovenox/celebrex use. Pt has been using tylenol prn pre therapy treatments. Pt continues to use std cane outside the home only (presented to office without cane for first time today). Pt has started to resume small short abbreviated bouts of community ambulation. Pt reports history of eleven surgeries over the past three years impacting her strength/mobility. Pt states her PCP at from [place] will be ordering labs due to ongoing concern for history of bruising/ hx of anemia. Pt will benefit from ongoing PT to accelerate strength/balance/mobility post R TKA recovery. Pt. has been doing her bike for 5 minutes a day at home, attempted 10 minutes today but after 6 minutes pt requested to stop. Will work up to 10 minutes in following visits. She is still doing her exercises regularly. She states that she is feeling some irritation in her L knee as well (hx of L knee replacement) and was encouraged to do stretching/strengthening on both sides. PT Plan: LE strengthening and ROM exercises Short Term Goals: -Pt. will increase R knee AROM flexion to 120 degrees (IR:107 degrees) -Pt. will increase R knee AROM extension to 0 degrees (IR: -8 degrees) -Pt. will increase R hamstring length to 150 degrees (IR: 143 degrees) -Pt will resume driving (when cleared from MD office) [facility] Goals: -Pt. will be able to stand from a prolonged seated position w/o sx's increasing to 2/10 -Pt. will be able to flex at her hip in a seated position to be able to put her shoe on and tie it. -Pt. will increase LEFI score by 25% -Pt. will be independent with HEP Electronically signed by: Елена Fontana, PT, DPT
== END 2024-08-24 12:15 | disposition home or self-care (01) ==
LOC: HO.PTWFD 08:00
PROVIDERS: PCP Internal Medicine; Visit Provider Physician Assistant
DX: Z96.651 Presence of right artificial knee joint (principal)
CPT/HCPCS: 97110; 97140; 97161; 97535

== ENCOUNTER 2025-07-25 09:22 | Outpatient (REF) | payer MEDICARE, MEDICAID, SELFPAY ==
--- NOTE | ~2025-07-25 | XR_ITS ---
EXAMINATION: XR KNEE, RIGHT CLINICAL INFORMATION: M25.561 - Pain in right knee COMPARISON: April 27, 2024 TECHNIQUE: AP view both knees in standing position. Lateral and sunrise view of the right knee. FINDINGS: There is a metallic prosthesis with a femoral and tibial plateau component well-seated in the osseous structures. There is lucency surrounded the femoral and the tibial plateau components. No gross malalignment. The hardware is intact. There is loosening surrounding the femoral and tibial plateau components of the left hip arthroplasty prosthesis. XR/XR knee RT 3V IMPRESSION: Concerning loosening involving both femoral and tibial plateau components of the metallic prosthesis, both knees. Electronically signed by: Ángel Ibarra MD 07/25/2025 09:46 AM EDT
== END 2025-07-25 09:23 | disposition home or self-care (01) ==
LOC: HO.HOSX 09:22
PROVIDERS: PCP Internal Medicine; Visit Provider Orthopaedic Surgery
DX: M25.561 Pain in right knee (principal); Z96.651 Presence of right artificial knee joint
CPT/HCPCS: 73562; 99212

== ENCOUNTER 2025-07-25 09:22 | Outpatient (AMB) | payer MEDICARE, MEDICAID, SELFPAY ==
--- NOTE | 2025-07-25 09:25 | MHC.OFFVIS ---
Intake Visit Reasons: OV-Pain of the right knee/limited weight bearing Intake Note: Mikki is a 65 year old female who presents today for a follow up or her right knee. Hx of Right TKA 04/27/24. Patient reports that she had felt tlike the right knee is giving out on her, this has been getting progressively worse over time. She feels that the right knee has a visual deformity, She feels that height leg is pronating inward, there is pain that is felt in the lateral aspect of the upper leg that comes across to the medial aspect of the knee. She has been dong very well and is very scared that something is wrong and worried about being set back Allergies morphine Allergy (Severe, Verified 06/03/24 09:20) Vomiting adhesive tape Adverse Reaction (Intermediate, Verified 06/03/24 09:20) Blister/rash ciprofloxacin (Cipro HC) Adverse Reaction (Intermediate, Verified 06/03/24 09:20) insomnia HPI HPI OV-Pain of the right knee/limited weight bearing: Details: Mikki is a 65 year old female who presents today for a follow up or her right knee. Hx of Right TKA 04/27/24. Patient reports that she had felt tlike the right knee is giving out on her, this has been getting progressively worse over time. She feels that the right knee has a visual deformity, She feels that leg is pronating inward, there is pain that is felt in the lateral aspect of the upper leg that comes across to the medial aspect of the knee. She has been dong very well and is very scared that something is wrong and worried about being set back. 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 [facility] Medical History Osteoarthritis of right knee Anemia Urinary retention History of nephrolithiasis Chronic kidney disease, stage 3 Hx of hydronephrosis Hx of pyelonephritis Osteoarthritis BORA on CPAP Depression Anxiety PONV (postoperative nausea and vomiting) GERD (gastroesophageal reflux disease) HTN (hypertension) History of primary malignant neoplasm of right kidney (~11/2022) Renal calculus, left Osteoarthritis of left knee Morbid obesity with BMI of 45.0-49.9, adult Surgical History History of total left knee replacement History of nephrectomy, right Hx of eye surgery History of esophagogastroduodenoscopy (EGD) Hx of colonoscopy H/O ventral hernia repair (~05/2023) Hx of cystoscopy (~2020) Hx of hand surgery H/O: hysterectomy (~1998) History of carpal tunnel release History of spinal fusion Social History Household Members: None Housing: House Housing Other:: 1st floor of two family house Are you a primary reproductive healthcare assistant to a significant other at home: No Do you presently have visiting nurse or other home services: No Patient Tobacco Use Status: Former Tobacco user Tobacco use type: Cigarette Years Smoked: 30 e-Cigarette/Vaping Use: Never Used service: No Physical Exam Extrem Other: On exam there appears to be partial quadriceps tear over the vastus medialis with intact lateral quadriceps. She has 4+ quad strength in extension and her flexion is 125 degrees. There is prominent medial patella without instability. Results Reviewed Results Reviewed: I personally reviewed relevant radiographs. Right total knee arthroplasty in expected post operative position with no hardware complications or evidence of loosening Assessment & Plan Assessment & Plan (1) Status post total right knee replacement: Code(s): Z96.651 - Presence of right artificial knee joint Category: Surgical Plan: 65-year-old 15 months status post right knee replacement who was doing very well. She noticed some increase of pain and visible changes to the patella after getting back from long trip abroad about 6 weeks ago. On exam she has a partial tear of her quad likely a long area of prior arthrotomy. This is not repairable. She has difficulty going up and downstairs and notices a deformity but she has no patellar instability and she is walking comfortably. She has a lot of family health issues right now and so she said she will try to do a little physical therapy and I gave her a knee sleeve. I suppose allograft reconstruction of the quad would be possible but I do not recommend this given her relatively high function. She will see me back in 3 months. Orders: Orders XR knee RT 3V Today M25.561 - Pain in right knee Coding Level of Care Code Est Pt Level 3 (82950) Diagnoses Status post total right knee replacement Z96.651
--- OUTSIDE RECORDS SUMMARY | 2025-07-25 11:07 | XMS_ITS | Clinical Summary ---
Author Organization [facility] Facility Address [address] [place] [address] Care Team Providers Care Entry Level Paralegal Name Role Phone Unavailable Primary Care Provider Unavailabl e Social History Tobacco Use Types Packs/Day Years Used Date Smoking Tobacco: Never Assessed Comments Unknown Sex and Gender Information Value Date Recorded Sex Assigned at Not on file Legal Sex Female 12:31 PM EDT Gender Identity Not on file Sexual Orientation Not on file Plan of Treatment Health Maintenance Due Date Last Done Comments Breast Cancer Screening 1961 Colorectal Cancer Screening: Annual FOBT 2010 Colorectal Cancer Screening: Colonoscopy 2010 Colorectal Cancer Screening: Sigmoidoscopy 2010 Pneumococcal Vaccine: 50+ Ye ars (1 of 1 - PCV) 2011 Influenza Vaccine (#1) 2025 Hepatitis B Vaccine Aged Out No longe r eligible based on patient's age to complete this topic Insurance [facility] [employer]
--- OUTSIDE RECORDS SUMMARY | 2025-07-25 11:07 | XMS_ITS ---
Author Name [facility] Organization Unknown Care Team Organization Name Specialty Phone Email Start Date End Da [facility] 06/29/2025 [facility] 11/18/2022 06/28/2024
--- OUTSIDE RECORDS SUMMARY | 2025-07-25 11:07 | XMS_ITS | Clinical Summary ---
Author Organization [facility] [address] Address [address] [place] [address] Phone Care Team Providers Care Inspecting Supervisor Name Role Phone Chantal Magallanes MD Primary Care Prov ider Allergies Active Allergy Reactions Criticality Noted Date Comments Ciprofloxacin Nausea Only 09/27/2024 Ciprofloxacin-Hydrocort isone Other 03/18/2017 Insomnia, excitablity Hydrocodone-Acetaminoph en Nausea And Vomiting 03/18/2017 No reaction documented Morphine Nausea And Vomiting 08/11/2024 Medications aluminum-magnes ium hydroxide-simet hicone (MAALOX) 200-200-20 mg/5 mL suspension Take 15 mL by mouth 4 times daily (before meals and nightly)., Disp-1200 mL, R-11, 10/30/20 22 Active amoxicillin (AMOXIL) 500 mg capsule Take 4 capsules (2,000 mg total) by mouth. take one hour prior to dental appointment 08/02/20 24 Active clobetasoL (TEMOVATE) 0.05 % cream Apply topically 2 (two) times a day. 60 g 2 02/26/20 25 Active citalopram (CeleXA) 40 mg tablet Take 1 tablet (40 mg total) by mouth 1 (one) time each day. 30 each 5 02/26/20 25 2024 Active estradioL (ESTRACE) 0.5 mg tablet TAKE 1 TABLET BY MOUTH EVERYDAY AT BEDTIME 90 tablet 1 04/13/20 25 Active hydrOXYzine pamoate (VistariL) 25 mg capsuleIndicati ons:Anxiety and depression Take 1 capsule (25 mg total) by mouth 3 (three) times a day if needed for itching. 30 capsule 5 04/14/20 25 Active valsartan (DIOVAN) 80 mg tablet TAKE 1 TABLET BY MOUTH EVERY DAY 90 tablet 05/04/20 25 Active pantoprazole (PROTONIX) 40 mg EC tablet Take 1 tablet (40 mg total) by mouth 1 (one) time each day. 90 tablet 1 05/10/20 25 Active diclofenac (VOLTAREN) 75 mg EC tablet Take 1 tablet (75 mg total) by mouth 2 (two) times a day. 180 each 05/16/20 25 2025 Active albuterol HFA (PROAIR HFA ; PROVENTIL HFA ; VENTOLIN HFA) 90 mcg/actuation inhaler Inhale 2 puffs by mouth every 6 (six) hours if needed for wheezing or shortness of breath. 1 each 06/14/20 25 2025 Active tirzepatide, weight loss, (Zepbound) 5 mg/0.5 mL injection Inject 0.5 mL (5 mg total) under the skin every 7 (seven) days. 2 mL 1 07/04/20 25 Active HYDROcodone-chl orpheniramine polistirex (TUSSIONEX) 10-8 mg/5 mL ER suspensionIndic ations:Chronic cough Take 5 mL by mouth every 12 (twelve) hours if needed for cough. Max Daily Amount: 280 mL 280 mL 07/21/20 25 Active tirzepatide, weight loss, (ZEPBOUND) 7.5 mg/0.5 mL injectionIndica tions:Moderate obstructive sleep apnea,BMI 50.0-59.9, adult (CMS/HCC V24, CMS/HCC V28),Primary hypertension Inject 0.5 mL (7.5 mg total) under the skin every 7 (seven) days. 2 mL 07/21/20 25 Active triamterene-hyd roCHLOROthiazid e (MAXZIDE-25) 37.5-25 mg per tablet TAKE 1 TABLET BY MOUTH EVERY DAY 90 tablet 07/22/20 25 Active triamterene-hyd roCHLOROthiazid e (MAXZIDE-25) 37.5-25 mg per tablet TAKE 1 TABLET BY MOUTH EVERY DAY 90 tablet 05/04/20 25 2024 Discontinued HYDROcodone-chl orpheniramine polistirex (TUSSIONEX) 10-8 mg/5 mL ER suspension Take 5 mL by mouth every 12 (twelve) hours if needed for cough. Max Daily Amount: 280 mL 280 mL 06/13/20 25 2024 Discontinued(R eorder) tirzepatide, weight loss, (Zepbound) 2.5 mg/0.5 mL injection Inject 0.5 mL (2.5 mg total) under the skin every 7 (seven) days. 4 mL 06/23/20 25 2024 Discontinued Active Problems Problem Noted Date Diagnosed Date History of total right knee replacement (TKR) Medical marijuana use 06/13/2025 Opioid contract exists 04/01/2025 Rosacea 02/25/2025 Anxiety and depression 02/25/2025 Chronic cough 10/13/2024 Carpal tunnel syndrome 09/27/2024 Cervicalgia 09/27/2024 Clear cell carcinoma of kidney ([facility] V24, [facility] V28) 09/27/2024 Severe obesity ([facility] V24, [facility] V28) 2023 Total knee replacement status, bilateral 024 Hypertension 12/30/2023 Urinary tract infection, site not specified 12/12 Overview (12/30/2023): Hospitalized in May for urosepsis Depression 12/30/2023 Arthritis of back 12/30/2023 Overview (12/30/2023): RA ruled out by previous PCP Osteoarthritis 12/30/2023 Overview (12/30/2023): left Vitamin D deficiency 08/08/2023 Renal malignant neoplasm ([facility] V24, [facility] V 28) 12/10/2022 Overview (12/30/2023): Right side: 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 Home Polysomnogram: Date 03/16/2018; AHI 20, Unclassified apneas 0; Obstructive apneas 0; Central apneas 0; Mixed apneas 0; hypopneas 23; average oxygen saturation 94% (lowest 89% without saturations <88% for 5% or more of study) - Obstructive Sleep Apnea - moderate; all hypopneas; without sleep related hypoventilation by 2018 home polysomnogram. Last Assessment & Plan: 64-year-old woman with history of moderate obstructive sleep apnea. Mikki is today upset because the new machine is not what she expected. The machine according to her is use and is not working adequately. I explained her that ideally, she will need to bring the machine to [facility] home [facility] for revision and for then to obtain the chip and for us to review the compliance report. I explained her that given that her latest study was more than 5 years ago, in order for me to prescribe a new machine if the current one is not working, will be to do a new sleep study especially because she now has more health issues and has decreased more than 50 pounds. The previous study done in 2018 was at home sleep testing. I would prefer for her to have a new sleep study in lab. I have ordered a new sleep study and I told her that we will call [facility] home care for them to review her machine. Acid reflux disease 12/13/2016 History of carpal tunnel surgery 12/13/2016 Encounters Date Type Department Care Team Description 07/04/2025 3:45 PM EDT Office Visit Adult Medicine - [address] [phone] Сергей Shaikh PA Severe obesity (CMS/HCC V24, CMS/HCC V28) (Primary Dx); Primary hypertension; Chronic cough; History of total right knee replacement (TKR); Opioid contract exists; Medical marijuana use; Otalgia of both ears 05/18/2025 Telephone Adult Medicine - [place] [address] [place] [address] Сергей Shaikh PA 05/06/2025 Telephone Adult Medicine - [place] [address] [place] [phone] Beth Still MA from Last 3 Months Immunizations Name Administration Dates Next Due Tdap Tetanus diptheria acell ular pertussis (Boostrix; Adacel) 7yo and older 04/12/2024,02/15/2013 Surgical History Surgery Date Site/Laterality Comments NECK SURGERY PROCEDURE: HISTORICAL NECK SURGERY; COMMENT: cervical fusion ?5&6 Dr. Krishna OTHER SURGICAL HISTORY PROCEDURE: HISTORICAL SUPRACERVICAL HYSTERECTOMY WITH BSO; COMMENT: cervix sparing, Dr. Dominguez KNEE SURGERY Bilateral PROCEDURE: HISTORICAL KNEE SURGERY; COMMENT: january and april of 2024 COLONOSCOPY PROCEDURE: HISTORICAL COLONOSCOPY; COMMENT: 12/10/2013, repeat 10 yrs OTHER SURGICAL HISTORY 11/24/2020 Right PROCEDURE: HISTORY OTHER; COMMENT: Right 5th metacarpal ORIF OTHER SURGICAL HISTORY PROCEDURE: HISTORY OTHER; COMMENT: right kidney surger CARPAL TUNNEL RELEASE 11/10/1999 - 11/09/[address] Krishna Medical History Medical History Date Comments Osteoarthritis of knee DX:Osteoa rthritis of knee; COMMENT: left Arthritis of back DX:Arthritis o f back; COMMENT: RA ruled out by previous PCP Depression (emotion) DX:Depressi on (emotion) HTN (hypertension) DX:HTN (hyper tension) BORA (obstructive sleep apnea) DX :BORA (obstructive sleep apnea); COMMENT: CPAP full facial mask. pressure 11-15 Gastroesophageal reflux dise ase without esophagitis 12/13/2016 DX:Gastroesophageal reflux d isease without esophagitis History of diverticulitis 03/18/2017 DX:His tory of diverticulitis Morbid obesity ([facility] V24, [facility] V28) 12/13/2016 DX:Morbid obesity (HCC) Hypercholesterolemia 03/18/2017 DX:Hypercho lesterolemia Morbid obesity with BMI of 4 5.0-49.9, adult ([facility]/HCC V24, [facility] V28) 03/18/2017 DX:Morbid obesity wit h BMI of 45.0-49.9, adult ([facility]) BMI 50.0-59.9, adult ([facility]/ [facility] V24, [facility] V28) 04/17/2018 DX:BMI 50.0-59.9, adult ([facility] ) Urinary tract infection, sit e not specified DX:Urinary tract infection, site not specified; COMMENT: Hospitalized in May for urosepsis Renal malignant neoplasm ( S/HCC V24, [facility] V28) 12/10/2022 DX:Renal malignant neoplasm (HCC); COMMENT: Right side: 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 scheduled 11/29/2022 Vitamin D deficiency 08/08/2023 DX:Vitamin D deficiency Medical marijuana use 06/13/2025 Family History Medical History Relation Name Comments Hypertension Brother Stroke Father Stroke Grandparent massive cerebra l hemorrhage at 64 Hypertension Mother Hypertension Sister 1 Breast cancer Neg Hx Colon cancer Neg Hx Uterine cancer Neg Hx Relation Name Status Comments Brother Alive Father (Age 85) Grandparent Maternal Grandfather Maternal Grandmother Mother (Age 89) Paternal Grandfather Paternal Grandmother Sister 1 Alive Sister 2 Alive Sister 3 Alive Sister 4 Alive Social History Tobacco Use Types Packs/Day Years Used Date Smoking Tobacco: Former Cigarettes 0.2 40.6 0 12/13/1976 - 07/06/2017 Smokeless Tobacco: Never Alcohol Use Standard Drinks/Week Comments No 0 (1 standard drink = 0.6 oz pur e alcohol) Housing Instability Answer Date Recorde d Are you worried that in the next 2 months you may not have stable housing? No 10/12/2024 Food Access & Nutrition Answer Date Rec orded Do you have access to a vari ety of food including fruits and vegetables? Yes 10/12/2024 Access to Healthcare Answer Date Record ed Within the last 3 months, ho w many times did you visit the emergency department for your medical care? 0 10/12/2024 Health Literacy Answer Date Recorded How often do you need to hav e someone help you when you read instructions, pamphlets, or other written material from your doctor or pharmacy? Sometimes 10/12/2024 Caregiver: How often do you need to have someone help you when you read instructions, pamphlets, or other written material from your doctor or pharmacy? Not on file 10/12/2024 Financial Risk Answer Date Recorded How hard is it for you to pa y for the very basics like food, housing, medical care, and air conditioning / heating? Hard 10/12/2024 Transportation Answer Date Recorded Has the lack of transportati on kept you from meetings, work, or from getting things needed for daily living? No Has the lack of transportati on kept you from medical appointments or from getting medications? No 10/12/2024 Social Isolation Answer Date Recorded How often do you feel lonely or isolated from those around you? Sometimes 10/12/2024 Food Risk Answer Date Recorded Within the past 12 months we worried whether our food would run out before we got money to buy more. Never true 10/12/2024 Within the past 12 months th e food we bought just didn't last and we didn't have money to get more. Never true 10/12/2024 Dependent Care Answer Date Recorded Do you need help finding or paying for care for your loved ones. For example, early childhood education specialist or elderly care for an older adult? No 10/12/2024 Education Answer Date Recorded Do you think completing more education or training, like finishing a GED, going to college, or learning a trade, would be helpful for you? No 10/12/2024 Employment and Income Answer Date Recor ded During the last four weeks, have you been actively looking for work? Yes 10/12/2024 Living Situation Answer Date Recorded What is your living situation? 1 12/13/2023 Comments No Sex and Gender Information Value Date Recorded Sex Assigned at Not on file Legal Sex Female 1:52 PM EST Gender Identity Not on file Sexual Orientation Not on file Obstetrics History Last Filed Vital Signs Vital Sign Reading Time Taken Comments Blood Pressure 106/71 07/04/2025 3:38 PM EDT Pulse 70 07/04/2025 3:38 PM EDT Temperature 36.3 C (97.4 F) 07/04/2025 3:38 PM EDT Respiratory Rate 18 01/21/2025 10:39 AM EDT Oxygen Saturation 100% 01/21/2025 10:39 AM EDT Inhaled Oxygen Concentration - - Weight 102 kg (225 lb) 07/04/2025 3:38 PM EDT Height 152.4 cm (5') 07/04/2025 3:38 PM EDT Body Mass Index 43.94 07/04/2025 3:38 PM EDT Plan of Treatment Upcoming Encounters Date Type Department Care Team (Late st Contact Info) Description 07/29/2025 1:50 PM EDT Appointment Radiology Department - [address] [phone] 08/01/2025 8:15 AM EDT Office Visit Pulmonolgy - [place] [address] [facility] [address] [place] [phone] Brigitte Hernandez MD [address] [address] Health Maintenance Due Date Last Done Comments Breast Cancer Screening 1961 Zoster Vaccines (1 of 2) 02/12/1980 Pneumococcal Vaccine: 50+ Years (1 of 1 - PCV) 2011 RSV Immunization Adult Patients (1 - Risk 60-74 years 1-dose series) 2021 Colorectal Cancer Screening: Stool Based Tests (FOBT/FIT) 10/08/2022 HIV Screening 10/08/2022 Medicare Annual Wellness Visit 10/08/2022 Social Influencers of Health Screening 10/12/2025 10/12/2024 Hypertension/CHF/CAD Annual BMP Blood Test 04/01/2026 04/01/2025, 06/04/2024, 06/04/2024 Cholesterol Screening (Lipid Panel) 08/07/2028 08/07/2023 Cervical Cancer Screening: HPV 12/24/2029 12/24/2024 DTaP,Tdap,and Td Vaccines (3 - Td or Tdap) 04/12/2034 04/12/2024, 02/15/2013 Hepatitis C Screening Completed 02/04/2018 COVID-19 Vaccine Discontinued 04/16/2021, 03/19/2021 Depression Screening Completed 07/04/2025, 08/02/2024 HIB Vaccines Aged Out No longer eligi ble based on patient's age to complete this topic HPV Vaccines Aged Out No longer eligi ble based on patient's age to complete this topic Hepatitis A Vaccines Aged Out No long er eligible based on patient's age to complete this topic Hepatitis B Vaccines Aged Out No long er eligible based on patient's age to complete this topic IPV Vaccines Aged Out No longer eligi ble based on patient's age to complete this topic Influenza Vaccine Discontinued MMR Vaccines Aged Out No longer eligi ble based on patient's age to complete this topic Meningococcal ACWY Vaccine Aged Out N o longer eligible based on patient's age to complete this topic Meningococcal B Vaccine Aged Out No l onger eligible based on patient's age to complete this topic RSV Immunization Patients Under 20 months Aged Out No longer eligible based on patient's age to complete this topic Varicella Vaccines Aged Out No longer eligible based on patient's age to complete this topic Procedures Procedure Name Priority Date/Time Associated Diagnosis Comments COMPREHENSIVE METABOLIC PANEL Routine 04/01/2025 12:01 PM EDT Primary hypertension HPV WITH REFLEX GENOTYPE Routine 12/24/2024 9:21 AM EST Encounter for annual physical examination excluding gynecological examination in a patient older than 17 years DEPRESSION SCREENING Routine 08/02/2024 LIPID PANEL Routine 08/07/2023 HEPATITIS C SCREENING Routine 02/04/2018 from Last 3 Months or Most Recently Relevant to Health Maintenance Results * Comprehensive metabolic panel (04/01/2025 12:01 PM EDT) Sodium 137 133 - 145 mmol/L LAB CHEMISTRY METHOD 04/01/2025 5:44 PM EDT [facility] Potassium 4.0 3.5 - 5.5 mmol/L LAB CHEMISTRY METHOD 04/01/2025 5:44 PM EDT [facility] Chloride 102 96 - 110 mmol/L LAB CHEMISTRY METHOD 04/01/2025 5:[address] [facility] CO2 27 21 - 32 mmol/L LAB CHEMISTRY METHOD 04/01/2025 5:[address] [facility] Anion Gap 8 3 - 11 LAB CHEMISTRY METHOD 04/01/2025 5:[address] [facility] Glucose 89 70 - 100 mg/dL LAB CHEMISTRY METHOD 04/01/2025 5:[address] [facility] BUN 16 5 - 25 mg/dL LAB CHEMISTRY METHOD 04/01/2025 5:[address] [facility] Creatinine 0.62 0.50 - 1.10 mg/dL LAB CHEMISTRY METHOD 04/01/2025 5:[address] [facility] eGFR 100 >=60 mL/min/1. 73m2 LAB CHEMISTRY METHOD 04/01/2025 5:[address] [facility] Comment:Calculation based on the Chronic Kidney Disease Epidemiology Collaboration (CKD-EPI) equation refit without adjustment for race. BUN/Creatinine Ratio 25.8 LAB CHEMISTRY METHOD 04/01/2025 5:[address] [facility] Calcium 9.6 8.5 - 10.5 mg/dL LAB CHEMISTRY METHOD 04/01/2025 5:[address] [facility] AST (SGOT) 10 10 - 42 unit/L LAB CHEMISTRY METHOD 04/01/2025 5:[address] [facility] ALT (SGPT) 15 10 - 60 unit/L LAB CHEMISTRY METHOD 04/01/2025 5:[address] [facility] Alkaline Phosphatase 100 42 - 121 unit/L LAB CHEMISTRY METHOD 04/01/2025 5:[address] [facility] Total Protein 7.4 6.0 - 8.0 g/dL LAB CHEMISTRY METHOD 04/01/2025 5:[address] [facility] Albumin 3.5 3.2 - 5.0 g/dL LAB CHEMISTRY METHOD 04/01/2025 5:44 PM EDT [facility] Total Bilirubin 0.3 0.0 - 1.4 mg/dL LAB CHEMISTRY METHOD 04/01/2025 5:44 PM EDT [facility] Blood Venous blood specimen / Unknown Venipuncture / Unknown 04/01/2025 12:01 PM EDT 04/01/2025 12:01 PM EDT Сергей MCDONOUGH LAB BLOOD ORDERABLES Final Res ult [facility] [address] [place] [address], [place] [phone] * HPV with reflex genotype (12/24/2024 9:21 AM EST) [facility] HPV Negative Negative LAB MICROBIOLOGY METHOD 12/27/2024 2:03 PM EST [facility] Brushing Cervix uteri structure / Unknown 12/24/2024 9:21 AM EST 12/27/2024 5:58 AM EST Muna Beck CNM LAB MOLECULAR DIAGNOSTICS ORD ERABLES Final Result [facility] [address] [place] [address], [place] [phone] * Depression Screening (08/02/2024) Pathologist [facility] Depression Screening Abstracted Historical Provider HEALTH MAINTENANCE Final Result * (ABNORMAL) Lipid panel (08/07/2023) [facility] LDL/HDL Ratio 3 0 - 4 Triglycerides 224(A) 0 - 150 mg/dL Cholesterol 173 0 - 200 mg/dL HDL 56 >=40 mg/dL LDL Cholesterol 73 0 - 100 mg/dL Blood Venous blood specimen / Unknown Historical Provider LAB BLOOD ORDERABLES Kellen l Result * Hepatitis C Screening (02/04/2018) Hepatitis C Screening Abstracted Historical Provider HEALTH MAINTENANCE Final Result from Last 3 Months or Most Recently Relevant to Health Maintenance Insurance [place]ICARE [place]ICAID [place] Care Teams Inspecting Supervisor Relationship Specialty Start Date End Date Chantal Magallanes MD [address] [place] [id number] PCP - General Internal Medicine 03/24/18
== END 2025-07-25 10:07 | disposition home or self-care (01) ==
LOC: HO.HOS 09:22
PROVIDERS: PCP Internal Medicine; Visit Provider Orthopaedic Surgery
DX: Z47.89 Encounter for other orthopedic aftercare (principal); Z96.651 Presence of right artificial knee joint
CPT/HCPCS: 99213

== ENCOUNTER → 2025-07-25 09:31 | Outpatient (BNV) | payer MEDICARE, MEDICAID, SELFPAY | PROVIDERS: PCP Internal Medicine; Visit Provider Radiology Diagnostic Radiology | DX: M25.561 Pain in right knee (principal) | CPT/HCPCS: 73562 ==